=== PATIENT | female | born 1930 | race African-American/Black ===

== ENCOUNTER 2018-01-29 13:56 | Outpatient (CLI) ==
[2013-01-29 07:37] VITALS: TEMP 96.7
--- NOTE | 2018-01-29 16:07 | DEXA ---
EXAM: Bone densitometry. History: Screening for osteoporosis. Findings: Evaluation of the lumbar spine reveals a total bone mineral density of 1.157 grams per centimeter squ ared with T-score of negative 0.2. Evaluation of the right hip reveals a total bone mineral density of 0.909 grams per centimeter square d with T-score of negative 0.8. Evaluation of the left hip reveals a total bone mineral density of 0.879 grams per centimeter squared with T-score of negative 1.0. Impression: Normal bone mineral density of the lumbar spine and bilateral hips
--- NOTE | 2018-01-31 09:19 | MAMMO ---
EXAM: Bilateral digital screening mammogram (2-D and 3-D) History: Screening Comparison: Bilateral mammogram 02/05/2013 Findings: MLO and CC views of bilateral breasts demonstrate scattered fibroglandular breast parenchy ma. CAD was reviewed by the radiologist. Tomosynthesis was performed. Stable benign bilateral luciana st calcifications. Stable benign nodules within the right breast. There are no developing masses an d no suspicious microcalcifications. No architectural distortions Impression: Benign stable mammogram. Recommend followup routine screening mammography in 1 year. BIRADS 2
== END 2018-01-29 13:57 | disposition home or self-care (01) ==
LOC: RAD 13:56
PROVIDERS: ATTEND Internal Medicine
DX: Z12.31 Encounter for screening mammogram for malignant neoplasm of breast (principal); M81.0 Age-related osteoporosis without current pathological fracture
CPT/HCPCS: 77067

== ENCOUNTER 2018-03-21 08:59 | Outpatient (POV) ==
[2013-01-29 07:37] VITALS: TEMP 96.7
== END 2018-03-21 17:00 ==
LOC: OUTPT 08:59
PROVIDERS: ATTEND Otolaryngology
DX: H91.90 Unspecified hearing loss, unspecified ear (principal)

== ENCOUNTER 2018-03-31 18:56 | Inpatient (IN) | payer OTHER ==
[2018-03-31] MEDS ORDERED: ZOFRAN 4 MG/2 ML IVP STA (20:08)
[2018-03-31] MEDS ORDERED: SODIUM CHLORIDE 1,000 ML IV STA (20:08)
--- NOTE | 2018-03-31 20:15 | ED.PDOC ---
General ED Provider: Dr. JOSE SAHU Chief Complaint: Abdominal Pain Stated Complaint: Patient is an 87 year old female who come to the ER with complains of lower abominal pain that started yesterday after she at a [employer] that her got sick after eating. Pain is better today rates it at 2/10 denies any nausea or vomiting. Time Seen by Physician: 19:50 Mode of Arrival: Walk-In Information Source: Patient Exam Limitations: No limitations Primary Care Provider: JEN ROLLE Nursing and Triage Documentation Reviewed and Agree: Yes Does patient meet sepsis criteria?: No If yes, has appropriate treatment been initiated?: No System Inflammatory Response Syndrome: Not Applicable Sepsis Protocol: For patient's 13 years and over: Temp is 96.8 and below OR 101 and greater Pulse >90 BPM Resp >20/minute Acutely Altered Mental Status Are patient's symptoms suggestive of a new infection, such as: -Pneumonia -Skin, Soft Tissue -Endocarditis -UTI -Bone, Joint Infection -Implantable Device -Acute Abdominal Infection -Wound Infection -Meningitis -Blood Stream Catheter Infection -Unknown Review of Systems - Review Of Systems Constitutional: Reports: Loss of appetite Eyes: Reports: No symptoms Ears, Nose, Mouth, Throat: Reports: No symptoms Respiratory: Reports: No symptoms Cardiac: Reports: No symptoms GI: Reports: Abdominal pain, Poor appetite : Reports: No symptoms Musculoskeletal: Reports: No symptoms Skin: Reports: No symptoms Neurological: Reports: Anxiety Endocrine: Reports: No symptoms Hematologic/Lymphatic: Reports: No symptoms All Other Systems: Reviewed and Negative Past Medical History - Past Medical History Endocrine: Reports: Dyslipidemia Cardiovascular: Reports: Hypertension Respiratory: Reports: Unknown Hematological: Reports: Anemia Gastrointestinal: Reports: Unknown Genitourinary: Reports: Unknown Neuro/Psych: Reports: Dementia Musculoskeletal: Reports: Arthritis Cancer: Reports: Colon Last Menstrual Period: hysterectomy - Surgical History General Surgical History: Reports: Hysterectomy, Orthopedic (right ryan, left wrist) - Family History Family History: Reports: None - Social History Smoking Status: Former smoker Hx Substance Use: No Alcohol Screening: None - Immunizations Tetanus Shot up to Date: Yes Physical Exam - Physical Exam Appearance: Well-nourished Pain Distress: Mild Eyes: VICENTE, EOMI, Conjunctiva clear ENT: Nose normal, Oropharynx normal Neck: Supple Respiratory: Airway patent, Breath sounds clear, Breath sounds equal, Respirations nonlabored Cardiovascular: RRR, Pulses normal, No rub, No murmur GI/: Soft, No masses, Bowel sounds normal, No Organomegaly, Tender (mild ) Musculoskeletal: Normal strength, ROM intact, No edema, No calf tenderness Skin: Warm, Dry, Normal color Neurological: Sensation intact, Motor intact, Reflexes intact, Cranial nerves intact, Alert, Oriented Psychiatric: Affect appropriate, Mood appropriate Interpretation - Radiology Interpretation Radiology Interpretation By: Radiologist Radiology Results: Positive (Diverticulitis) Exam Interpreted: CT Scan Critical Care Note - Critical Care Note Total Time (mins): 0 Course - Course Hematology/Chemistry: 03/31/18 20:20 03/31/18 20:20 Orders, Labs, Meds: Lab Review 03/31/18 03/31/18 03/31/18 20:15 20:20 20:20 WBC 15.24 H RBC 3.64 L Hgb 11.0 L Hct 34.0 L MCV 93.4 MCH 30.2 MCHC 32.4 RDW Coeff of Alex 13.2 Plt Count 285 Immature Gran % (Auto) 0.3 Neut % (Auto) 71.4 Lymph % (Auto) 16.5 [place] % (Auto) 10.8 H Eos % (Auto) 0.7 Baso % (Auto) 0.3 Immature Gran # (Auto) 0.0 Neut # (Auto) 10.9 H Lymph # (Auto) 2.5 [place] # (Auto) 1.7 Eos # (Auto) 0.1 Baso # (Auto) 0.1 Sodium 141 Potassium 3.3 L Chloride 104 Carbon Dioxide 26 Anion Gap 14.3 BUN 19 H Creatinine 1.17 Estimated GFR (MDRD) 53.00 BUN/Creatinine Ratio 16.23 Glucose 96 Calcium 9.9 Total Bilirubin 0.9 AST 13 L ALT 14 Alkaline Phosphatase 73 Total Protein 7.8 Albumin 3.8 Globulin 4.0 Albumin/Globulin Ratio 0.95 Amylase 53 Lipase 7 L Urine Color Dark Urine Clarity Slightly Urine pH 7.0 Ur Specific [place] 1.020 Urine Protein 1+ Urine Glucose (UA) Negative Urine Ketones Negative Urine Blood 2+ Urine Nitrite Negative Urine Bilirubin Negative Urine Urobilinogen 0.2 Ur Leukocyte Esterase 1+ Urine Microscopic RBC 10-20 Urine Microscopic WBC 10-20 Ur Squamous Epith Cells 2-5 Urine Bacteria Trace Urine Mucus 1+ Orders Category Date Time Status EKG-(ED ONLY) Stat CARDIO 03/31/18 21:35 Completed 2 GRAM SODIUM DIET DIETARY 03/31/18 Breakfast Ordered ED IV/MEDIPORT/POWERPORT .ONCE EMERGENCY 03/31/18 20:08 Active AMYLASE Stat LAB 03/31/18 20:20 Completed CBC W/ AUTO DIFF DAILY@0600 LAB 04/01/18 06:00 Ordered CBC W/ AUTO DIFF DAILY@0600 LAB 04/02/18 06:00 Ordered CBC W/ AUTO DIFF Stat LAB 03/31/18 20:20 Completed COMPREHENSIVE METABOLIC PANEL DAILY@0600 LAB 04/01/18 06:00 Ordered COMPREHENSIVE METABOLIC PANEL DAILY@0600 LAB 04/02/18 06:00 Ordered COMPREHENSIVE METABOLIC PANEL Stat LAB 03/31/18 20:20 Completed LIPASE Stat LAB 03/31/18 20:20 Completed URINALYSIS C & S IF INDICATED Stat LAB 03/31/18 20:15 Completed URINE CULTURE Stat LAB 03/31/18 20:15 Received 0.9 % Sodium Chloride [Saline Flush] MEDS 03/31/18 20:08 Active 1 syr IVF PRN PRN Allopurinol [Zyloprim] MEDS 04/01/18 09:00 Ordered 100 mg PO BID Atenolol [Atenolol] MEDS 04/01/18 09:00 Ordered 100 mg PO DAILY Atorvastatin Calcium [Lipitor] MEDS 04/01/18 09:00 Ordered 10 mg PO DAILY Enoxaparin Sodium [Lovenox] MEDS 04/01/18 09:00 Ordered 40 mg SUBCUT DAILY Ferrous Sulfate Solution [Ferrous Sulfate] MEDS 04/01/18 09:00 Ordered 7.3635 ml PO TID Levofloxacin/D5w [Levaquin] 500 mg MEDS 04/01/18 09:00 Ordered Premix 100 ml D5w 1 bag IV DAILY Levofloxacin/D5w [Levaquin] 500 mg MEDS 03/31/18 21:27 Discontinued Premix 100 ml D5w 1 bag IV ONCE Lisinopril [Zestril] MEDS 04/01/18 09:00 Ordered 5 mg PO DAILY Metformin HCl [Glucophage] MEDS 04/01/18 09:00 Ordered 500 mg PO BID Metronidazole/Sodium Chloride [Flagyl 500 mg/100 ml] MEDS 03/31/18 22:00 Ordered 500 mg Premix 100 ml Ns 1 bag IV Q8H Morphine Sulfate [Morphine 2 mg/ml Syringe] MEDS 03/31/18 21:38 Ordered 2 mg IVP Q4H PRN Clarence-3 Fatty Acids [Fish Oil] MEDS 04/01/18 09:00 Ordered 300 mg PO DAILY Omeprazole [Prilosec] MEDS 04/01/18 06:30 Ordered 20 mg PO QDAC Ondansetron HCl/Pf [Zofran 4 mg/2 ml] MEDS 03/31/18 20:08 Discontinued 4 mg IVP ONCE STA Ondansetron HCl/Pf [Zofran 4 mg/2 ml] MEDS 03/31/18 21:38 Ordered 4 mg IVP Q6H PRN Potassium Chloride [Klor-Con 10] MEDS 04/01/18 09:00 Ordered 10 meq PO DAILY Sodium Chloride 0.9% [Sodium Chloride] 1,000 ml MEDS 03/31/18 22:00 Ordered IV 100 mls/hr Sodium Chloride 0.9% [Sodium Chloride] 1,000 ml MEDS 03/31/18 20:08 Discontinued IV BOLUS RESUSCITATION STATUS Routine OTHERS 03/31/18 21:38 Ordered CHEST, 1V AP ONLY Stat RADS 03/31/18 21:[address] ABD/PEL WO RENAL STONE PROT Stat RADS 03/31/18 20:08 Completed PT CONSULT Routine THERAPIES 03/31/18 Ordered Medications Generic Name Dose Route Start Last Admin Trade Name Freq PRN Reason Stop Dose Admin Allopurinol 100 mg 04/01/18 09:00 Zyloprim PO BID [facility] Atorvastatin Calcium 10 mg 04/01/18 09:00 Lipitor PO DAILY [facility] Enoxaparin Sodium 40 mg 04/01/18 09:00 Lovenox SUBCUT DAILY PILAR Ferrous Sulfate 7.3635 ml 04/01/18 09:00 Ferrous Sulfate PO TID PILAR Levofloxacin/Dextrose 500 mg/ 100 mls @ 100 mls/hr 04/01/18 09:00 Dextrose IV DAILY PILAR Metronidazole 500 mg/ Sodium 100 mls @ 100 mls/hr 03/31/18 22:00 03/31/18 23: 13 Chloride IV 100 mls/hr Q8H PILAR Administration Sodium Chloride 1,000 mls @ 100 mls/hr 03/31/18 22:00 03/31/18 23:13 Sodium Chloride IV 100 mls/hr .Q10H PILAR Administration Lisinopril 5 mg 04/01/18 09:00 Zestril PO DAILY [facility] Metformin HCl 500 mg 04/01/18 09:00 Glucophage PO BID [facility] Morphine Sulfate 2 mg 03/31/18 21:38 Morphine 2 Mg/Ml Syringe IVP Q4H PRN Severe Pain Non-Formulary Medication 100 mg 04/01/18 09:00 Atenolol [Atenolol] PO DAILY [facility] Non-Formulary Medication 300 mg 04/01/18 09:00 Clarence-3 Fatty Acids [Fish Oil] PO DAILY [facility] Non-Formulary Medication 10 meq 04/01/18 09:00 Potassium Chloride [Klor-Con 10] PO DAILY [facility] Omeprazole 20 mg 04/01/18 06:30 Prilosec PO QDAC [facility] Ondansetron HCl 4 mg 03/31/18 21:38 Zofran 4 Mg/2 Ml IVP Q6H PRN Nausea / Vomiting Sodium Chloride 1 syr 03/31/18 20:08 Saline Flush IVF PRN PRN To flush IV Discontinued Medications Generic Name Dose Route Start Last Admin Trade Name Freq PRN Reason Stop Dose Admin Sodium Chloride 1,000 mls @ 1,000 mls/hr 03/31/18 20:08 03/31/18 21:03 Sodium Chloride IV 03/31/18 21:07 1,000 mls/hr BOLUS STA Administration Levofloxacin/Dextrose 500 mg/ 100 mls @ 100 mls/hr 03/31/18 21:27 03/31/18 21 :44 Dextrose IV 03/31/18 22:26 100 mls/hr ONCE STA Administration Ondansetron HCl 4 mg 03/31/18 20:08 03/31/18 21:03 Zofran 4 Mg/2 Ml IVP 03/31/18 20:09 4 mg ONCE STA Administration Vital Signs: Temp Pulse Resp BP Pulse Ox 03/31/18 18:56 99.9 F H 82 20 171/82 H 97 Departure - Departure Time of Disposition: 21:28 Disposition: HOME SELF-CARE Discharge Problem: Abdominal pain, Diverticulitis of sigmoid colon Condition: Fair Pt referred to PMD for follow-up: No IPMP verified?: No Allergies/Adverse Reactions: Allergies No Known Allergies Allergy (Verified 03/31/18 19:11) Home Medications: Ambulatory Orders Allopurinol [Zyloprim] 100 mg PO BID 01/29/13 Atenolol 100 mg PO DAILY 01/29/13 Atorvastatin Calcium [Lipitor] 10 mg PO DAILY 01/29/13 Ferrous Sulfate Solution [Ferrous Sulfate] 324 mg PO TID 01/29/13 Lisinopril [Zestril] 5 mg PO DAILY 01/29/13 Clarence-3 Fatty Acids [Fish Oil] 300 mg PO DAILY 01/29/13 Omeprazole [Prilosec] 20 mg PO QDAC 01/29/13 Potassium Chloride [Klor-Con 10] 10 meq PO DAILY 01/29/13 Disposition Discussed With: Patient, Family
--- NOTE | 2018-03-31 21:14 | CT ---
EXAM: CT abdomen pelvis without contrast TECHNIQUE: Helical axial CT of the abdomen and pelvis was performed without contrast with coronal an d sagittal reconstructions. COMPARISON: MRI of the pelvis from 09/01/2009 HISTORY: Abdominal pain FINDINGS: There is some edema in the mesenteric fat surrounding a short segment of sigmoid colon in t he left pelvis with some bowel wall thickening. There are multiple colonic diverticuli in the area. There is no free air or abscess identified. There is no obstruction or ileus or pathologic lymph no ray. There is a 1 cm nonobstructive stone seen in the calyceal system of the lower pole on the left. Ther e is no hydronephrosis seen bilaterally. No other renal or ureteral stones are present. There is so me renal atrophy seen bilaterally. There are no filling defects in the urinary bladder. The bladder is decompressed. There has been prior hysterectomy. There are multiple phleboliths in the pelvis. There are no large renal cysts or suspicious renal masses. There is a large mass containing calcifications seen associated with the right psoas muscle extending into the neural foramen of L4-5 on the right measuring about 6.5 x 3.5 cm which is stable compared t o earlier. 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 The liver, spleen, pancreas,and adrenal glands show no acute abnormality. There is old granulomatous disease. Lung bases are well-aerated. There is a small hiatal hernia. The gallbladder is normal with no stones or inflammation. There is no biliary or pancreatic ductal dilatation. The appendix is unremarkable. There are no abdominal wall hernias. There is advanced calcific athero sclerosis of the aorta. There are no acute osseous abnormalities. There is advanced degenerative perdomo ge of the lumbar spine. IMPRESSION: 1. Sigmoid diverticulitis as described. 2. Nonobstructive left-sided nephrolithiasis. 3. 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 4. Other miscellaneous findings as described.
[2018-03-31] MEDS ORDERED: LEVAQUIN 500 MG in PREMIX 100 ML D5W 1 BAG IV STA (21:27)
[2018-03-31] MEDS ORDERED: MORPHINE 2 MG/ML SYRINGE IVP PRN (21:38)
[2018-03-31] MEDS ORDERED: ZOFRAN 4 MG/2 ML IVP PRN (21:38)
[2018-03-31] MEDS ORDERED: LEVAQUIN 100 ML IV ONE (21:40)
[2018-03-31] MEDS ORDERED: FLAGYL 500 MG/100 ML 100 ML IV ONE (22:54)
[2018-03-31] MEDS: FLAGYL 500 MG/100 ML 500 MG in PREMIX 100 ML NS 1 BAG IV SCH (23:13)
[2018-03-31] MEDS: SODIUM CHLORIDE 1,000 ML IV SCH (23:13)
[2018-04-01 00:14] VITALS: BMI 26.4
[2018-04-01] MEDS ORDERED: FLAGYL 500 MG/100 ML 100 ML IV ONE (06:08)
[2018-04-01] MEDS: FLAGYL 500 MG/100 ML 500 MG in PREMIX 100 ML NS 1 BAG IV SCH ×3 (06:12→23:21)
[2018-04-01] MEDS: PRILOSEC PO SCH (06:12)
[2018-04-01] MEDS ORDERED: MICRO-K CAP PO SCH (08:00)
--- NOTE | 2018-04-01 08:25 | DI ---
EXAM: Chest one view HISTORY: Abdominal pain COMPARISON: 10/31/2011 TECHNIQUE: Single view of the chest was performed FINDINGS: The lungs are clear. There is no pleural effusion or pneumothorax. The heart is normal i n size. The mediastinal contour is normal. There are no acute abnormalities of the bones. IMPRESSION: No acute cardiopulmonary process.
[2018-04-01] MEDS ORDERED: ZAROXOLYN PO PRN (08:52)
[2018-04-01] MEDS ORDERED: NON-FORMULARY MEDICATION (Atenolol [Atenolol] 100 MG) PO SCH (09:00)
[2018-04-01] MEDS ORDERED: FERROUS SULFATE PO SCH (09:00)
[2018-04-01] MEDS ORDERED: NON-FORMULARY MEDICATION (Potassium Chloride [Klor-Con 10] 10 MEQ) PO SCH (09:00)
[2018-04-01] MEDS ORDERED: FATTY ACIDS PO SCH (09:00)
[2018-04-01] MEDS ORDERED: OMEGA PO SCH (09:00)
[2018-04-01] MEDS: GLUCOPHAGE PO SCH ×2 (09:30→17:45)
[2018-04-01] MEDS: LIPITOR PO SCH (09:30)
[2018-04-01] MEDS: TENORMIN PO SCH (09:30)
[2018-04-01] MEDS: OMEGA-3 FISH OIL PO SCH (09:30)
[2018-04-01] MEDS: ZESTRIL PO SCH (09:30)
[2018-04-01] MEDS: FERROUS SULFATE PO SCH ×3 (09:30→20:27)
[2018-04-01] MEDS: ZYLOPRIM PO SCH ×2 (09:31→20:27)
[2018-04-01] MEDS: LOVENOX SUBCUT SCH (09:31)
[2018-04-01] MEDS: ZAROXOLYN PO SCH (10:40)
[2018-04-01] MEDS: SODIUM CHLORIDE 1,000 ML IV SCH ×2 (12:28→23:21)
[2018-04-01] MEDS: K-DUR PO SCH (17:45)
[2018-04-01] MEDS: LEVAQUIN 500 MG in PREMIX 100 ML D5W 1 BAG IV SCH (20:27)
[2018-04-01] MEDS: NAMENDA PO SCH (20:30)
[2018-04-01] MEDS: TRAVATAN Z OP SCH (20:30)
[2018-04-02] MEDS: FLAGYL 500 MG/100 ML 500 MG in PREMIX 100 ML NS 1 BAG IV SCH ×3 (05:21→20:17)
[2018-04-02] MEDS: PRILOSEC PO SCH (06:20)
[2018-04-02] MEDS: ZESTRIL PO SCH (09:00)
[2018-04-02] MEDS: ZYLOPRIM PO SCH ×2 (09:00→20:17)
[2018-04-02] MEDS: TENORMIN PO SCH (09:00)
[2018-04-02] MEDS: FERROUS SULFATE PO SCH ×3 (09:01→20:17)
[2018-04-02] MEDS: GLUCOPHAGE PO SCH (09:01)
[2018-04-02] MEDS: OMEGA-3 FISH OIL PO SCH (09:01)
[2018-04-02] MEDS: LIPITOR PO SCH (09:01)
[2018-04-02] MEDS: LOVENOX SUBCUT SCH (09:02)
[2018-04-02] MEDS: K-DUR PO SCH ×2 (09:05→18:09)
[2018-04-02] MEDS: SODIUM CHLORIDE 1,000 ML IV SCH ×3 (09:09→21:34)
--- NOTE | 2018-04-02 10:04 | PCM.PROG ---
Attending Provider: ATTENDING PROVIDER: Dr. JEN ROLLE This patient is seen with Parris Uriarte, Nurse Practitioner. DATE OF SERVICE: 04/02/18 SUBJECTIVE: This 87 year old BLACK/ F was hospitalized 03/31/18. The patient is lying in bed, alert. The patient is resting comfortably. Pain has improved. No fever. She is eating 50 to 75% of meals. Urine culture pending. REVIEW OF SYSTEMS: CONSTITUTIONAL: Weakness. No night sweats. No malaise, lethargy. No fever or chills. HEENT: Eyes: No visual changes. No eye pain. No eye discharge. ENT: No runny nose. No epistaxis. No sinus pain. No odynophagia. No congestion. RESPIRATORY: No cough, no congestion. No hemoptysis. No shortness of breath. CARDIOVASCULAR: No angina symptoms. No CHF symptoms. No atypical chest pain for CAD. No palpitations. No orthopnea.. GASTROINTESTINAL: Decreased appetite. Abdominal pain. No nausea or vomiting. No diarrhea or constipation. No hematemesis. No hematochezia. GENITOURINARY: No urgency. No frequency. No dysuria. No hematuria. No obstructive symptoms. No discharge. No pain. No significant abnormal bleeding. MUSCULOSKELETAL: No musculoskeletal pain; no joint swelling. NEUROLOGICAL: Awake, alert, oriented to time, place and person. No headache. No neck pain. No syncope. No seizures. No dizziness. PSYCHIATRIC: Not anxious. No depression. No suicidal thoughts. No homicidal thoughts. SKIN: No rash. No lesions. No wounds. ENDOCRINE: No unexplained weight loss. No weight gain. HEMATOLOGIC/LYMPHATIC: No anemia. No purpura. No petechiae. No prolonged or excessive bleeding. No palpable lymph nodes. PHYSICAL EXAMINATION: GENERAL: The patient is awake, alert and oriented, lying/sitting in bed in no distress. VITAL SIGNS: Temperature 98.8 F, Pulse 68, Respiratory Rate 16, BP 127/71, Pulse Ox 97% HEENT: Head normocephalic, atraumatic. Eyes: Extraocular muscles are intact. Pupils are equal, round and reactive to light and accommodation. Ears: No lesions. Nose appeared normal. Throat: No exudate or erythema. NECK: Supple. No JVD, no carotid bruit. No lymphadenopathy or thyromegaly. LUNGS: Diminished breath sounds. Clear to auscultation. Percussion note normal. Chest symmetrical. HEART: Grade II/ systolic murmur. S1, S2, no S3. No cyanosis or clubbing. No ascites. Pulses: Dorsalis pedis and posterior tibial pulses +1 to +2 both sides. ABDOMEN: Soft. Non-tender. Bowel sounds active. No CVA tenderness. No mass felt. EXTREMITIES: No leg edema. Full range of motion of all extremities, equal. NEUROLOGIC: No focal deficit. Cranial nerves II through XII are grossly intact. No headache, no double vision or headache. SKIN: Not dry. Intact. Turgor-normal. LYMPHATIC: No palpable lymph nodes/no lymphedema. MUSCULOSKELETAL: Normal joints with no swelling. Muscle tone is normal. LAB REVIEW: 04/02/18 04:15 04/02/18 04:15 04/02/18 04:15: Sodium 140, Potassium 4.1, Chloride 111 H, Carbon Dioxide 21 L, Anion Gap 12.1, BUN 20 H, Creatinine 1.08, Estimated GFR (MDRD) 58.00, BUN/ Creatinine Ratio 18.51, Glucose 111, Calcium 8.8, Total Bilirubin 0.5, AST 14 L , ALT 13, Alkaline Phosphatase 52 L, Total Protein 6.4, Albumin 2.9 L, Globulin 3.5, Albumin/Globulin Ratio 0.83 04/02/18 04:15: WBC 8.22, RBC 3.03 L, Hgb 9.2 L, Hct 28.0 L, MCV 92.4, MCH 30.4 , MCHC 32.9, RDW Coeff of Alex 13.1, Plt Count 233, Immature Gran % (Auto) 0.2, Neut % (Auto) 58.0, Lymph % (Auto) 25.5, [place] % (Auto) 13.1 H, Eos % (Auto) 2.7 , Baso % (Auto) 0.5, Immature Gran # (Auto) 0.0, Neut # (Auto) 4.8, Lymph # ( Auto) 2.1, [place] # (Auto) 1.1, Eos # (Auto) 0.2, Baso # (Auto) 0.0 ASSESSMENT: 1. Acute sigmoid diverticulitis 2. Acute UTI, culture pending 3. Hypertension 4. Dyslipidemia 5. Anemia 6. Dementia 7. Arthritis 8. Colon cancer 9. Hysterectomy PLAN: 1. Echo 2. Decrease IV fluids to 50 mL/hr Plan and coordination of the patient's care discussed in the presence of It Help Desk Technician and nurse. CONDITION: Stable SCRIBED BY: TANESHA PACKER General Manager scribed while in presence of service performed by Dr. Rolle/Parris Uriarte APRN on 04/02/18 ([id number])
--- NOTE | 2018-04-02 16:07 | RS.PTINEVL ---
Subjective - Patient information Date of Evaluation: 04/02/18 Date of Arrival on Unit: 03/31/18 Diagnosis: Diverticulitis, UTI, HTN Usual Living Arrangement: Alone Home Environment: Apartment ([facility] Apartments) Medical History: Hypertension, Dementia, Arthritis Medical History Comments:: Anemia, Hiatal hernia, Colon Cancer, Hysterectomy, Left wrist sx, Right ankle sx Subjective Information/ Patient Comments:: Patient states she uses a cane in her home. States she just got a rollator last week. States she has gotten weak since being sick. States her daughters tell her that she needs to walk, but she does not feel like it. - Level of function Prior to this admission, the patient could do the following:: Independent Selfcare, Independent ADL's, Independent Ambulation Current Level of Function: Independent Current Equipment Used at Home: cane, shower chair and walker. Interventions - Objective Patient Orientation: Person, Place, Time, Situation Current Interventions: IV's, Telemetry Range of Motion - ROM Right Upper Extremity AROM: WFL's Left Upper Extremity AROM: WFL's Right Lower Extremity AROM: WFL's Left Lower Extremity AROM: WFL's Muscle Strength - Muscle Strength Comments:: Bilateral hip strength 4/5, knees 4/5, ankles 4/5. Sensation - Sensation Right Lower Extremity Sensation: Intact/Normal Left Lower Extremity Sensation: Intact/Normal Balance - Sitting Balance and Reactions Static Sitting Balance: Good Dynamic Sitting Balance: Good - Standing Balance and Reactions Static Standing Balance: Good (-) Dynamic Standing Balance: Good (-) Functional Mobility - Bed Mobility Comments:: Patient presents in chair at bedside. - Transfers Sit to Stand: CGA, 1 person assist, Verbal Cues Stand to Sit: CGA, 1 person assist, Verbal Cues, Tactile Cues Stand Pivot Transfers: CGA, 1 person assist, Verbal Cues, Tactile Cues Comments:: Patient requires cues to push from chair prior to reaching for walking with sit to stand transfer. Also given cues to reach back for chair prior to sitting. - Safety Awareness Safety Awareness: Fair BRENDON INDEX SCORE: not a Swing Bed patient Ambulation - Ambulation Weight Bearing Status: FWB Assistive Device Used: Rolling Walker Orthotic/Prosthetic Device: No Distance: 45 feet Assistance needed with Ambulation: CGA, Min Assist, 1 person assist, Verbal Cues Gait Deviations: Wide Based gait, Forward posture Factors Affecting Ambulation: Weakness, Decreased Safety, Limited Endurance Treatment time - Time with patient Length of Evaluation: 19 mins Total treatment time: 19 (mins) Patient Education - Education Patient Education: Home Safety, Activity Modification Teaching Recipient: Patient Teaching Methods: Discussion, Demonstration Assessment - Assessment Problem List:: Decreased level of function, Requires training/education, Decreased safety/Risk of falls, Weakness Rehab Potential: Good Further Therapy Indicated?: Yes Candidate for Swing Bed for Therapy Services?: Anticipate seeing Ms. Coates for just a few days to improve her safety with ambulation and transfers. She does not appear to be a candidate for swing bed due to her level of function. Evaluation Complexity: HISTORY: Medium (Anemia, HTN, Hx Colon Ca), EXAM OF BODY SYSTEMS: Medium, CLINICAL PRESENTATION: Medium, CLINICAL DECISION MAKING: Medium Short Term Goals GOAL #1: Pt to consistently push from chair/bed for sit to stand transfers. Goal to be met by: 04/04/18 GOAL #2: Bed mobility with SBA and verbal cues. Goal to be met by: 04/04/18 GOAL #3: Pt to amb. with RW 100 feet with good base of support, CGA of one. Goal to be met by: 04/04/18 Field Education Director Goals GOAL #1: All bed mobility independent. Goal to be met by: 04/06/18 GOAL #2: Pt to perform transfers with SBA and good safety. Goal to be met by: 04/06/18 GOAL #3: Pt to amb. with approp. assist device household distances and good safety. Goal to be met by: 04/06/18 Plan Plan of Care: Therapeutic EX, Neuromuscular Re-Educ, Therapeutic Activity, Self- Care/Home Management Frequency of Treatment: 1-2 X day, as tolerated Duration of Treatment: 4 days Anticipated Discharge Destination: Home Treatment Diagnosis (ICD 10 Codes): Difficulty walking R26.2, At risk for falls Z91.81 Has the Physician been added for Co-signature?: Yes
--- NOTE | 2018-04-02 16:22 | RS.OTINEVL ---
Subjective - Patient information Date of Evaluation: 04/02/18 Date of Arrival on Unit: 03/31/18 Usual Living Arrangement: Alone Living Arrangement Comments: Lives at home alone. Pt uses a cane at home and a rollator out in the community. Daughter helps her. Home Environment: Apartment ([facility]) Medical History: Hypertension, Dementia, Arthritis Medical History Comments:: Anemia, Hiatal hernia, Colon Cancer, Hysterectomy, Left wrist sx, Right ankle sx Surgical History Comments:: Left wrist fracture with plate and pins, Right ankle fracture with plate and pins. Subjective Information/ Patient Comments:: "I am having help to get to the bathroom." "I live alone." - Level of function Prior to this admission, the patient could do the following:: Independent Selfcare, Independent ADL's, Independent Ambulation Abilities prior to this admission: Pt was is not driving anymore. Her daughter takes her where she needs to go. Pt is able to get dressed herself, make something to eat. Pt lives in a small apartment. Current Level of Function: Partially Dependent Current Equipment Used at Home: cane, shower chair and walker. 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 Pt reports she has a difficult time using her RUE. Pt has difficulty with RUE fine motor coordination , handwriting and functional mobility. Interventions - ROM Right Upper Extremity AROM: Slight limitation Left Upper Extremity AROM: WFL's - Strength Right Upper Extremity Strength: Mild Weakness Left Upper Extremity Strength: Mild Weakness - Sensation Right Upper Extremity Sensation: Impaired Left Upper Extremity Sensation: Intact/Normal Balance - Sitting Balance Static Sitting Balance: Fair Dynamic Sitting Balance: Fair - Standing Balance Static Standing Balance: Fair Dynamic Standing Balance: Fair ADL Skills - Self Feeding Self Feeding: Independent - Grooming Grooming: Supervision Functional Mobility - Transfers Sit to Stand: CGA, 1 person assist Stand to Sit: CGA, 1 person assist Stand Pivot Transfers: CGA, 1 person assist BRENDON INDEX SCORE: . Additional Treatment Performed - Time with patient Length of Evaluation: 18 Total treatment time: 18 Activities Patient Interests:: Watching Television, Visiting/Socializing Patient Education Patient Education: Education of diagnosis, Home Exercise Program, Home Safety, Education of Plan of Care Teaching Recipient: Patient Teaching Methods: Discussion Assessment Problem List:: Decreased level of function, Requires training/education, Decreased safety/Risk of falls, Weakness, Pain limits previous level of function Rehab Potential: Good Further Therapy Indicated?: Yes Evaluation Complexity: HISTORY: Medium, EXAM OF BODY SYSTEMS: Medium, CLINICAL DECISION MAKING: Medium Short Term Goals - Goals GOAL 1: Pt to increase RUE strength to 4/5. Goal to be met by: 04/06/18 GOAL 2: Pt to increase functional mobility to Mod-I. Goal to be met by: 04/06/18 GOAL 3: Pt to increase dyn. std. Balance to F-/G. Goal to be met by: 04/06/18 Shelter Goals GOAL 1: Pt to increase RUE strength to 4+/5. Goal to be met by: 04/13/18 GOAL 2: Pt to increase self care management to Mod-I. Goal to be met by: 04/13/18 GOAL 3: Pt to increase dyn. std. Balance to Good-. Goal to be met by: 04/13/18 Plan Plan of Care: Therapeutic EX, Neuromuscular Re-Educ, Therapeutic Activity, Self- Care/Home Management Frequency of Treatment: 1-2 X day, as tolerated Duration of Treatment: 2 Weeks Anticipated Discharge Destination: Home Treatment Diagnosis (ICD 10 Codes): M62.81 muscle weakness, R27.8 Lack of coordination of RUE, R26.81 Balance impaired/unsteady Has the Physician been added for Co-signature?: Yes
[2018-04-02] MEDS: NAMENDA PO SCH (20:17)
[2018-04-02] MEDS: TRAVATAN Z OP SCH (20:17)
[2018-04-02] MEDS: LEVAQUIN 500 MG in PREMIX 100 ML D5W 1 BAG IV SCH (21:31)
[2018-04-03] MEDS: PRILOSEC PO SCH (05:57)
[2018-04-03] MEDS: ZAROXOLYN PO SCH (05:57)
[2018-04-03] MEDS: FLAGYL 500 MG/100 ML 500 MG in PREMIX 100 ML NS 1 BAG IV SCH ×3 (05:57→20:00)
--- NOTE | 2018-04-03 08:26 | PCM.PROG ---
Attending Provider: ATTENDING PROVIDER: Dr. JEN ROLLE DATE OF SERVICE: 04/03/18 SUBJECTIVE: This 87 year old BLACK/ F was hospitalized 03/31/18 with acute diverticulitis and UTI. The patient's condition has improved. She is eating better. REVIEW OF SYSTEMS: CONSTITUTIONAL: No night sweats. No fatigue, malaise, lethargy. No fever or chills. HEENT: Eyes: No visual changes. No eye pain. No eye discharge. ENT: No runny nose. No epistaxis. No sinus pain. No odynophagia. No congestion. RESPIRATORY: No cough, no congestion. No hemoptysis. No shortness of breath. CARDIOVASCULAR: No angina symptoms. No CHF symptoms. No atypical chest pain for CAD. No palpitations. No orthopnea.. GASTROINTESTINAL: No abdominal pain. No nausea or vomiting. No diarrhea or constipation. No hematemesis. No hematochezia. GENITOURINARY: No urgency. No frequency. No dysuria. No hematuria. No obstructive symptoms. No discharge. No pain. No significant abnormal bleeding. MUSCULOSKELETAL: No musculoskeletal pain; no joint swelling. NEUROLOGICAL: Awake, alert, oriented to time, place and person. No headache. No neck pain. No syncope. No seizures. No dizziness. PSYCHIATRIC: Not anxious. No depression. No suicidal thoughts. No homicidal thoughts. SKIN: No rash. No lesions. No wounds. ENDOCRINE: No unexplained weight loss. No weight gain. HEMATOLOGIC/LYMPHATIC: No anemia. No purpura. No petechiae. No prolonged or excessive bleeding. No palpable lymph nodes. PHYSICAL EXAMINATION: GENERAL: The patient is awake, alert and oriented, sitting in chair in no distress. VITAL SIGNS: Temperature 98.1 F, Pulse 71, Respiratory Rate 18, BP 121/72, Pulse Ox 98% HEENT: Head normocephalic, atraumatic. Eyes: Extraocular muscles are intact. Pupils are equal, round and reactive to light and accommodation. Ears: No lesions. Nose appeared normal. Throat: No exudate or erythema. NECK: Supple. No JVD, no carotid bruit. No lymphadenopathy or thyromegaly. LUNGS: Clear to auscultation. Percussion note normal. Chest symmetrical. HEART: S1, S2, no S3. No murmurs. No cyanosis or clubbing. No ascites. Pulses: Dorsalis pedis and posterior tibial pulses +1 to +2 both sides. ABDOMEN: Soft. Non-tender. Bowel sounds active. No CVA tenderness. No mass felt. EXTREMITIES: No edema. Full range of motion of all extremities, equal. NEUROLOGIC: No focal deficit. Cranial nerves II through XII are grossly intact. No headache, no double vision or headache. SKIN: Warm and dry. Intact. Turgor-normal. LYMPHATIC: No palpable lymph nodes/no lymphedema. MUSCULOSKELETAL: Normal joints with no swelling. Muscle tone is normal. LAB REVIEW: 04/03/18 07:20 04/02/18 04:15 04/03/18 07:20: WBC 8.14, RBC 3.17 L, Hgb 9.8 L, Hct 29.6 L, MCV 93.4, MCH 30.9 , MCHC 33.1, RDW Coeff of Alex 13.0, Plt Count 266, Immature Gran % (Auto) 0.4, Neut % (Auto) 58.6, Lymph % (Auto) 27.5, [place] % (Auto) 10.2 H, Eos % (Auto) 2.9 , Baso % (Auto) 0.4, Immature Gran # (Auto) 0.0, Neut # (Auto) 4.8, Lymph # ( Auto) 2.2, [place] # (Auto) 0.8, Eos # (Auto) 0.2, Baso # (Auto) 0.0 ASSESSMENT: 1. ACUTE DIVERTICULITIS UNDER CONTROL 2. UTI UNDER CONTROL PLAN: 1. D/C IV fluids 2. Anemia profile 3. Dietary consult Plan and coordination of the patient's care discussed in the presence of [employer] Director and nurse. EDUCATION: Discussed diverticulosis and diet, i.e. no seeds, nuts, popcorn. CONDITION: Stable SCRIBED BY: TANESHA PACKER Embalmer Assistant scribed while in presence of service performed by Dr. JEN ROLLE on 04/03/18 ([id number])
[2018-04-03] MEDS: K-DUR PO SCH ×2 (08:31→17:38)
[2018-04-03] MEDS: OMEGA-3 FISH OIL PO SCH (08:31)
[2018-04-03] MEDS: ZESTRIL PO SCH (08:31)
[2018-04-03] MEDS: FERROUS SULFATE PO SCH ×3 (08:31→20:00)
[2018-04-03] MEDS: LIPITOR PO SCH (08:31)
[2018-04-03] MEDS: ZYLOPRIM PO SCH ×2 (08:31→20:00)
[2018-04-03] MEDS: TENORMIN PO SCH (08:32)
[2018-04-03] MEDS: LOVENOX SUBCUT SCH (08:33)
[2018-04-03] MEDS: SODIUM CHLORIDE 1,000 ML IV SCH (09:21)
--- NOTE | 2018-04-03 13:52 | PN ---
DATE OF SERVICE: 03/31/18 ADMIT NOTE SUBJECTIVE: 87 year old white female hospitalized through the emergency room with abdominal pain. The patient has acute diverticulitis with leukocytosis. She is going to be treated with IV fluids, clear liquids. IV antibiotics Flagyl and Levaquin. Possibility of urinary tract infection also exists. Otherwise conditions are stable. The patient will have EKG and telemetry. TIME SPENT: More than 30 minutes. Plan and coordination of the patient's care discussed in the presence of nurse. KEENA
--- NOTE | 2018-04-03 14:02 | PN ---
DATE OF SERVICE: 04/02/18 SUBJECTIVE: The patient was hospitalized with acute diverticulitis and UTI. Condition has improved. WBC is normal. She is afebrile and eating well. Normal bowel movement. The patient was seen and examined with Nurse Practitioner. CONDITION: Stable. TIME SPENT: More than 30 minutes. Plan and coordination of the patient's care discussed in the presence of nurse. KEENA
[2018-04-03] MEDS: NAMENDA PO SCH (20:00)
[2018-04-03] MEDS: TRAVATAN Z OP SCH (20:00)
[2018-04-03] MEDS: LEVAQUIN 250 MG in PREMIX 50 ML D5W 1 BAG IV SCH (21:39)
[2018-04-04] MEDS: PRILOSEC PO SCH (05:38)
[2018-04-04] MEDS: FLAGYL 500 MG/100 ML 500 MG in PREMIX 100 ML NS 1 BAG IV SCH ×2 (05:38→15:19)
[2018-04-04] MEDS: ZYLOPRIM PO SCH (08:12)
[2018-04-04] MEDS: LIPITOR PO SCH (08:12)
[2018-04-04] MEDS: OMEGA-3 FISH OIL PO SCH (08:12)
[2018-04-04] MEDS: K-DUR PO SCH ×2 (08:12→16:56)
[2018-04-04] MEDS: ZESTRIL PO SCH (08:12)
[2018-04-04] MEDS: FERROUS SULFATE PO SCH ×2 (08:12→15:19)
[2018-04-04] MEDS: LOVENOX SUBCUT SCH (08:13)
[2018-04-04] MEDS: TENORMIN PO SCH (08:16)
--- NOTE | 2018-04-04 08:46 | PCM.PROG ---
Attending Provider: ATTENDING PROVIDER: Dr. JEN ROLLE This patient is seen with Parris Uriarte, Nurse Practitioner. DATE OF SERVICE: 04/04/18 SUBJECTIVE: This 87 year old BLACK/ F was hospitalized 03/31/18. The patient is lying in bed, alert, resting comfortably still with some abdominal pain. No diarrhea yesterday. Appetite has been good. She is still weak. REVIEW OF SYSTEMS: CONSTITUTIONAL: Weakness. No night sweats. No malaise, lethargy. No fever or chills. HEENT: Eyes: No visual changes. No eye pain. No eye discharge. ENT: No runny nose. No epistaxis. No sinus pain. No odynophagia. No congestion. RESPIRATORY: No cough, no congestion. No hemoptysis. No shortness of breath. CARDIOVASCULAR: No angina symptoms. No CHF symptoms. No atypical chest pain for CAD. No palpitations. No orthopnea.. GASTROINTESTINAL: Abdominal pain. No nausea or vomiting. No diarrhea or constipation. No hematemesis. No hematochezia. GENITOURINARY: No urgency. No frequency. No dysuria. No hematuria. No obstructive symptoms. No discharge. No pain. No significant abnormal bleeding. MUSCULOSKELETAL: No musculoskeletal pain; no joint swelling. NEUROLOGICAL: Awake, alert, oriented to time, place and person. No headache. No neck pain. No syncope. No seizures. No dizziness. PSYCHIATRIC: Not anxious. No depression. No suicidal thoughts. No homicidal thoughts. SKIN: No rash. No lesions. No wounds. ENDOCRINE: No unexplained weight loss. No weight gain. HEMATOLOGIC/LYMPHATIC: No anemia. No purpura. No petechiae. No prolonged or excessive bleeding. No palpable lymph nodes. PHYSICAL EXAMINATION: GENERAL: The patient is awake, alert and oriented, lying in bed in no distress. VITAL SIGNS: Temperature 97.6 F, Pulse 69, Respiratory Rate 18, BP 91/61, Pulse Ox 97% HEENT: Head normocephalic, atraumatic. Eyes: Extraocular muscles are intact. Pupils are equal, round and reactive to light and accommodation. Ears: No lesions. Nose appeared normal. Throat: No exudate or erythema. NECK: Supple. No JVD, no carotid bruit. No lymphadenopathy or thyromegaly. LUNGS: Clear to auscultation. Percussion note normal. Chest symmetrical. HEART: S1, S2, no S3. Grade II/ systolic murmur. No cyanosis or clubbing. No ascites. Pulses: Dorsalis pedis and posterior tibial pulses +1 to +2 both sides. ABDOMEN: Soft. Mild left quadrant tenderness. Bowel sounds active. No CVA tenderness. No mass felt. EXTREMITIES: No edema. Full range of motion of all extremities, equal. NEUROLOGIC: No focal deficit. Cranial nerves II through XII are grossly intact. No headache, no double vision or headache. SKIN: Not dry. Intact. Turgor-normal. LYMPHATIC: No palpable lymph nodes/no lymphedema. MUSCULOSKELETAL: Normal joints with no swelling. Muscle tone is normal. LAB REVIEW: 04/04/18 05:10 04/04/18 05:10 04/04/18 05:10: Sodium 139, Potassium 3.9, Chloride 113 H, Carbon Dioxide 22 L, Anion Gap 7.9, BUN 23 H, Creatinine 1.26, Estimated GFR (MDRD) 49.00, BUN/ Creatinine Ratio 18.25, Glucose 107, Calcium 9.2, Total Bilirubin 0.5, AST 12 L , ALT 11 L, Alkaline Phosphatase 48 L, Total Protein 5.9, Albumin 3.0 L, Globulin 2.9, Albumin/Globulin Ratio 1.03 04/04/18 05:10: WBC 7.01, RBC 3.18 L, Hgb 9.6 L, Hct 29.2 L, MCV 91.8, MCH 30.2 , MCHC 32.9, RDW Coeff of Alex 13.0, Plt Count 286, Immature Gran % (Auto) 0.3, Neut % (Auto) 59.6, Lymph % (Auto) 25.4, [place] % (Auto) 11.0 H, Eos % (Auto) 3.1 , Baso % (Auto) 0.6, Immature Gran # (Auto) 0.0, Neut # (Auto) 4.2, Lymph # ( Auto) 1.8, [place] # (Auto) 0.8, Eos # (Auto) 0.2, Baso # (Auto) 0.0 04/03/18 07:20: Vitamin B12 382 04/03/18 07:20: Iron 149, TIBC 215 L, % Saturation 69, Unsat Iron Binding 66 L, Ferritin 166.43, Folate 14.2 04/03/18 07:20: Reticulocyte % (Auto) 2.03, Absolute Retic 0.0650, Retic Hgb Equivalent 31.6 04/03/18 07:20: Sodium 139, Potassium 4.3, Chloride 110 H, Carbon Dioxide 22 L, Anion Gap 11.3, BUN 18, Creatinine 1.17, Estimated GFR (MDRD) 53.00, BUN/ Creatinine Ratio 15.38, Glucose 108, Calcium 9.5, Total Bilirubin 0.6, AST 15, ALT 13, Alkaline Phosphatase 51 L, Total Protein 6.6, Albumin 3.2 L, Globulin 3.4, Albumin/Globulin Ratio 0.94 04/03/18 07:20: Hemoglobin A1c 5.1 ASSESSMENT: 1. ACUTE DIVERTICULITIS UNDER CONTROL 2. UTI UNDER CONTROL 3. HYPOTENSION PLAN: 1. Anticipate d/c tomorrow 2. Encouraged to be up and about today 3. Monitor blood pressure 4. Hold Tenormin if blood pressure is less than 100/70 this morning Plan and coordination of the patient's care discussed in the presence of Firmware Engineer and nurse. CONDITION: Stable SCRIBED BY: TANESHA PACKER Fly Raiser Lockstitch scribed while in presence of service performed by Dr. Rolle/Parris Uriarte APRN on 04/04/18 ([id number])
--- NOTE | 2018-04-04 09:14 | HP ---
DATE OF SERVICE: 04/01/18 (ADMITTED 03/31/18) HISTORY OF PRESENT ILLNESS: This is an 87-year-old -Spanish female who presented to the emergency room with lower abdominal pain that she stated started after she ate peach cobbler with her friend. 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 No fatigue, malaise, lethargy. No fever or chills. HEENT: Eyes: No visual changes. No eye pain. No eye discharge. ENT: No runny nose. No epistaxis. No sinus pain. No sore throat. No odynophagia. No ear pain. No congestion. RESPIRATORY: No cough, no congestion. No hemoptysis. No shortness of breath. CARDIOVASCULAR: No angina symptoms. No CHF symptoms. No atypical chest pain for CAD. No palpitations. No PND. No orthopnea. GASTROINTESTINAL: Positive for abdominal pain and loss of appetite, nausea. No vomiting. No diarrhea or constipation. No hematemesis. No hematochezia. GENITOURINARY: No urgency. No frequency. No dysuria. No hematuria. No obstructive symptoms. No discharge. No pain. No significant abnormal bleeding. MUSCULOSKELETAL: No musculoskeletal pain. No joint swelling. No arthritis. NEUROLOGICAL: No headache. No neck pain. No syncope. No seizures. No dizziness. PSYCHIATRIC: Not anxious. No depression. No suicidal thoughts. No homicidal thoughts. SKIN: No rash. No lesions. No wounds. ENDOCRINE: No unexplained weight loss. No weight gain. HEMATOLOGIC/LYMPHATIC: No anemia. No purpura. No petechiae. No prolonged or excessive bleeding. No palpable lymph nodes. PERSONAL/FAMILY/SOCIAL HISTORY: She is a former smoker, lives at home with her friend. No alcohol or illicit drug use. MEDICATIONS: (HOME) Lisinopril 5 mg p.o. daily Klor-Con 10 mEq p.o. daily Fish Oil 300 mg p.o. daily Prilosec 20 mg p.o. q.d a.c. Lipitor 10 mg p.o. daily Zyloprim 100 mg p.o. b.i.d. Atenolol 100 mg p.o. daily Metolazone 2.5 mg p.o. every other day Travatan one drop OP bedtime Ferrous Sulfate 324 mg p.o. t.i.d. Namenda 10 mg p.o. bedtime Metolazone 2.5 mg p.o. daily p.r.n. ALLERGIES: NKDA PHYSICAL EXAMINATION: VITAL SIGNS: Temperature 99.9, heart rate 82, respirations 20, BP 170/82, pulse ox 97% on room air. HEENT: Head normocephalic, atraumatic. Eyes: Extraocular muscles are intact. Pupils are equal, round and reactive to light and accommodation. Ears: No lesions. Nose appeared normal. Throat: No exudate or erythema. NECK: Supple. No JVD, no carotid bruit. No lymphadenopathy or thyromegaly. LUNGS: Diminished breath sounds bilaterally. Clear to auscultation. Percussion note normal. Chest symmetrical. HEART: S1, S2, no S3. No murmurs. No cyanosis or clubbing. No ascites. Pulses: Dorsalis pedis and posterior tibial pulses +1 to +2 bilaterally. ABDOMEN: Soft. Generalized abdominal tenderness, which is mild. Nondistended. Bowel sounds active. No CVA tenderness. No mass felt. EXTREMITIES: No leg edema. Full range of motion of all extremities, equal. NEUROLOGIC: No focal deficit. Cranial nerves II through XII are grossly intact. No headache, no double vision or headache. SKIN: Not dry. Intact. Turgor - normal. LYMPHATIC: No palpable lymph nodes/no lymphedema. MUSCULOSKELETAL: Normal joints with no swelling. Muscle tone is normal. CT scan shows positive diverticulitis in sigmoid colon. White count 15.24, hemoglobin 11, hematocrit 34, platelets 285, sodium 141, potassium 3.3, BUN 19, creatinine 1.17, glucose 96. AST 13, ALT 14. Urine shows +1 protein, slightly dark, 2+ blood, 1+ leuks, trace bacteria. ASSESSMENT: 1. ACUTE SIGMOID DIVERTICULITIS 2. URINARY TRACT INFECTION 3. HYPERTENSION 4. DEMENTIA 5. ANEMIA PLAN: 1. Will admit 2. CBC, CMP daily 3. Urine culture 4. Routine telemetry orders 5. Continue all home medications 6. Start Levaquin 500 mg IV daily 7. Start Flagyl 500 mg IV q.8hr 8. [place] diet 9. NS at 100 cc/hr 10. Will follow closely TIME SPENT: More than 70 minutes. MTDD
--- NOTE | 2018-04-04 10:31 | PN ---
DATE OF SERVICE: 04/01/18 SUBJECTIVE: The patient was hospitalized with acute diverticulitis. The patient is sitting up eating, says feeling a lot better. No abdominal pain. REVIEW OF SYSTEMS: CONSTITUTIONAL: No night sweats. No fatigue, malaise, lethargy. No fever or chills. HEENT: Eyes: No visual changes. No eye pain. No eye discharge. ENT: No runny nose. No epistaxis. No sinus pain. No sore throat. No odynophagia. No congestion. RESPIRATORY: No cough, no congestion. No hemoptysis. No shortness of breath. CARDIOVASCULAR: No angina symptoms. No CHF symptoms. No atypical chest pain for CAD. No palpitations. No PND, no orthopnea. GASTROINTESTINAL: No abdominal pain. No nausea or vomiting. No diarrhea or constipation. No hematemesis. No hematochezia. GENITOURINARY: No urgency. No frequency. No dysuria. No hematuria. No obstructive symptoms. No discharge. No pain. No significant abnormal bleeding. MUSCULOSKELETAL: No musculoskeletal pain; no joint swelling. NEUROLOGICAL: No headache. No neck pain. No syncope. No seizures. No dizziness. PSYCHIATRIC: Not anxious. No depression. No suicidal thoughts. No homicidal thoughts. SKIN: No rash. No lesions. No wounds. ENDOCRINE: No unexplained weight loss. No weight gain. HEMATOLOGIC/LYMPHATIC: No anemia. No purpura. No petechiae. No prolonged or excessive bleeding. No palpable lymph nodes. PHYSICAL EXAMINATION: GENERAL: The patient is oriented to time, place and person. VITAL SIGNS: Temperature 98, pulse 71, respiratory rate 18, BP 117/71. Pulse ox 98%. HEENT: Head normocephalic, atraumatic. Eyes: Extraocular muscles are intact. Pupils are equal, round and reactive to light and accommodation. Ears: No lesions. Nose appeared normal. Throat: No exudate or erythema. NECK: Supple. No JVD, no carotid bruit. No lymphadenopathy or thyromegaly. LUNGS: Clear to auscultation. Percussion note normal. Chest symmetrical. HEART: S1, S2, no S3. No murmurs. No cyanosis or clubbing. No ascites. Pulses: Dorsalis pedis and posterior tibial pulses +1 to +2 both sides. ABDOMEN: Soft. Nontender. No tenderness at all on any part of the abdomen. Bowel sounds active. No CVA tenderness. No mass felt. EXTREMITIES: No edema. Full range of motion of all extremities, equal. NEUROLOGIC: No focal deficit. Cranial nerves II through XII are grossly intact. No headache, no double vision or headache. SKIN: Not dry. Intact. Turgor - normal. LYMPHATIC: No palpable lymph nodes/no lymphedema. MUSCULOSKELETAL: Normal joints with no swelling. Muscle tone is normal. LABS: Hemoglobin 9.4, hematocrit 29, WBC 9,000, normal differential. Creatinine 1.3, BUN 22. ASSESSMENT: 1. ACUTE DIVERTICULITIS 2. ACUTE URINARY TRACT INFECTION SEEMS TO BE UNDER CONTROL. PLAN: 1. Diverticulitis discussed. 2. The patient is to be continued on Flagyl and Levofloxacin. CONDITION: Stable TIME SPENT: More than 30 minutes. Plan and coordination of the patient's care discussed in the presence of nurse. KEENA
[2018-04-04] MEDS ORDERED: OXYCODONE PO PRN ×2 (13:15→14:00)
[2018-04-05] MEDS: ZYLOPRIM PO SCH ×2 (00:10→08:52)
[2018-04-05] MEDS: FLAGYL 500 MG/100 ML 500 MG in PREMIX 100 ML NS 1 BAG IV SCH ×3 (00:10→14:03)
[2018-04-05] MEDS: LEVAQUIN 250 MG in PREMIX 50 ML D5W 1 BAG IV SCH (00:10)
[2018-04-05] MEDS: FERROUS SULFATE PO SCH ×2 (00:10→08:51)
[2018-04-05] MEDS: TRAVATAN Z OP SCH (00:10)
[2018-04-05] MEDS: NAMENDA PO SCH (00:10)
[2018-04-05] MEDS: ZAROXOLYN PO SCH (05:35)
[2018-04-05] MEDS: PRILOSEC PO SCH (05:35)
[2018-04-05] MEDS: K-DUR PO SCH (08:51)
[2018-04-05] MEDS: OMEGA-3 FISH OIL PO SCH (08:51)
[2018-04-05] MEDS: LOVENOX SUBCUT SCH (08:52)
[2018-04-05] MEDS: LIPITOR PO SCH (08:52)
[2018-04-05] MEDS: ZESTRIL PO SCH (08:52)
--- NOTE | 2018-04-05 08:56 | PCM.PROG ---
Attending Provider: ATTENDING PROVIDER: Dr. JEN ROLLE This patient is seen with Parris Uriarte, Nurse Practitioner. DATE OF SERVICE: 04/05/18 SUBJECTIVE: This 87 year old BLACK/ F was hospitalized 03/31/18. The patient is sitting in chair, alert. She has been up and about walking with walker. She has been eating 50 to 75% of her meals. No diarrhea. No abdominal pain. REVIEW OF SYSTEMS: CONSTITUTIONAL: Fatigue. No night sweats. No malaise, lethargy. No fever or chills. HEENT: Eyes: No visual changes. No eye pain. No eye discharge. ENT: No runny nose. No epistaxis. No sinus pain. No odynophagia. No congestion. RESPIRATORY: No cough, no congestion. No hemoptysis. No shortness of breath. CARDIOVASCULAR: No angina symptoms. No CHF symptoms. No atypical chest pain for CAD. No palpitations. No orthopnea.. GASTROINTESTINAL: No abdominal pain. No nausea or vomiting. No diarrhea or constipation. No hematemesis. No hematochezia. GENITOURINARY: No urgency. No frequency. No dysuria. No hematuria. No obstructive symptoms. No discharge. No pain. No significant abnormal bleeding. MUSCULOSKELETAL: No musculoskeletal pain; no joint swelling. NEUROLOGICAL: Awake, alert, oriented to time, place and person. No headache. No neck pain. No syncope. No seizures. No dizziness. PSYCHIATRIC: Not anxious. No depression. No suicidal thoughts. No homicidal thoughts. SKIN: No rash. No lesions. No wounds. ENDOCRINE: No unexplained weight loss. No weight gain. HEMATOLOGIC/LYMPHATIC: No anemia. No purpura. No petechiae. No prolonged or excessive bleeding. No palpable lymph nodes. PHYSICAL EXAMINATION: GENERAL: The patient is awake, alert and oriented, sitting in chair in no distress. VITAL SIGNS: Temperature 97.8 F, Pulse 79, Respiratory Rate 18, BP 101/63, Pulse Ox 97% HEENT: Head normocephalic, atraumatic. Eyes: Extraocular muscles are intact. Pupils are equal, round and reactive to light and accommodation. Ears: No lesions. Nose appeared normal. Throat: No exudate or erythema. NECK: Supple. No JVD, no carotid bruit. No lymphadenopathy or thyromegaly. LUNGS: Clear to auscultation. Percussion note normal. Chest symmetrical. HEART: S1, S2, no S3. Grade II/ murmur. No cyanosis or clubbing. No ascites. Pulses: Dorsalis pedis and posterior tibial pulses +1 to +2 both sides. ABDOMEN: Soft. Non-tender. Bowel sounds active. No CVA tenderness. No mass felt. EXTREMITIES: No edema. Full range of motion of all extremities, equal. NEUROLOGIC: No focal deficit. Cranial nerves II through XII are grossly intact. No headache, no double vision or headache. SKIN: Not dry. Intact. Turgor-normal. LYMPHATIC: No palpable lymph nodes/no lymphedema. MUSCULOSKELETAL: Normal joints with no swelling. Muscle tone is normal. LAB REVIEW: 04/05/18 04:30 04/05/18 04:30 04/05/18 04:30: Sodium 138, Potassium 3.9, Chloride 113 H, Carbon Dioxide 18 L, Anion Gap 10.9, BUN 23 H, Creatinine 1.10, Estimated GFR (MDRD) 57.00, BUN/ Creatinine Ratio 20.90, Glucose 116 H, Calcium 9.3, Total Bilirubin 0.4, AST 16 , ALT 12, Alkaline Phosphatase 46 L, Total Protein 5.9, Albumin 2.9 L, Globulin 3.0, Albumin/Globulin Ratio 0.97 04/05/18 04:30: WBC 7.89, RBC 3.01 L, Hgb 9.1 L, Hct 29.3 L, MCV 97.3 D, MCH 30.2, MCHC 31.1 L, RDW Coeff of Alex 13.3, Plt Count 260, Immature Gran % (Auto) 0.3, Neut % (Auto) 60.0, Lymph % (Auto) 25.0, [place] % (Auto) 10.3 H, Eos % (Auto ) 3.8, Baso % (Auto) 0.6, Immature Gran # (Auto) 0.0, Neut # (Auto) 4.7, Lymph # (Auto) 2.0, [place] # (Auto) 0.8, Eos # (Auto) 0.3, Baso # (Auto) 0.1 ASSESSMENT: 1. ACUTE SIGMOID DIVERTICULITIS 2. UTI UNDER CONTROL 3. HYPOTENSION 4. ANEMIA PLAN: 1. D/C home 2. Levaquin 250 mg times 5 days 3. Flagyl 500 b.i.d. times 5 days 4. Decrease Atenolol to 50 mg daily 5. Echocardiogram before discharge Plan and coordination of the patient's care discussed in the presence of Physician General Internal Medicine and nurse. CONDITION: Stable SCRIBED BY: Matthew GARCIAist scribed while in presence of service performed by Dr. Rolle/Parris Uriarte APRN on 04/05/18 ([id number])
[2018-04-05] MEDS ORDERED: TENORMIN PO SCH (09:00)
--- NOTE | 2018-04-05 10:00 | CM.DICTOOL ---
ADMISSION: 03/31/18 21:40 DISCHARGE: 04/05/18 DATE OF SERVICE: 04/05/18 FINAL DIAGNOSIS ABDOMINAL PAIN, ACUTE DIVERTICULITIS, ACUTE SIGMOID UTI (C/S MIXED GROWTH) HYPOKALEMIA, TREATED HYPERTENSION HYPOTENSION, TREATED MILD AORTIC/MITRAL STENOSIS (PER ECHO 04/05/18) DYSLIPIDEMIA GERD ANEMIA HIATAL HERNIA, SMALL COLON CANCER BY HISTORY ARTHRITIS DEMENTIA GLAUCOMA RIGHT ANKLE SURGERY LEFT WRIST SURGERY HYSTERECTOMY FORMER SMOKER LAST VITALS Temp Pulse Resp BP Pulse Ox 97.8 F 79 18 101/63 97 04/05/18 05:15 04/05/18 05:15 04/05/18 05:15 04/05/18 05:15 04/05/18 05:15 TAKE THESE MEDICATIONS AT HOME Allopurinol (Zyloprim) 100 mg PO BID [facility] Last Admin: 04/05/18 08:52 Dose: 100 mg Atenolol (Tenormin) 50 mg PO DAILY [facility] Last Admin: 04/05/18 08:52 Dose: 50 mg Atorvastatin Calcium (Lipitor) 10 mg PO DAILY [facility] Last Admin: 04/05/18 08:52 Dose: 10 mg Ferrous Sulfate (Ferrous Sulfate) 324 mg PO TID [facility] Last Admin: 04/05/18 08:51 Dose: 324 mg Fish Oil ([place]-3 Fish Oil) 1,000 mg PO DAILY [facility] Last Admin: 04/05/18 08:51 Dose: 1,000 mg Levofloxacin/Dextrose 250 mg PO DAILY x5 DAYS [facility] Last Admin: 04/05/18 00:10 Dose: Not Given Lisinopril (Zestril) 5 mg PO DAILY [facility] Last Admin: 04/05/18 08:52 Dose: 5 mg Memantine (Namenda) 10 mg PO BEDTIME [facility] Last Admin: 04/05/18 00:10 Dose: Not Given Metolazone (Zaroxolyn) 2.5 mg PO DAILY PRN PRN Reason: Swelling Metronidazole 500 mg PO BID x5 DAYS [facility] Last Admin: 04/01/18 06:12 Metolazone (Zaroxolyn) 2.5 mg PO EVERY OTHER DAY@0630 [facility] Last Admin: 04/05/18 05:35 Dose: 2.5 mg Omeprazole (Prilosec) 20 mg PO QDAC [facility] Last Admin: 04/05/18 05:35 Dose: 20 mg Potassium Chloride (K-Dur) 10 meq PO BIDWM [facility] Last Admin: 04/05/18 08:51 Dose: 20 meq Travoprost (Travatan Z) 1 drop OP BEDTIME [facility] Last Admin: 04/05/18 00:10 Dose: Not Given ALLERGIES No Known Allergies Allergy (Verified 03/31/18 19:11) NEW PRESCRIPTIONS: Atenolol [Tenormin] 50 mg PO DAILY #30 tablet 04/05/18 Levofloxacin [Levaquin] 250 mg PO QDAC #5 tablet 04/05/18 Metronidazole [Flagyl] 500 mg PO BID #10 tablet 04/05/18 SMOKING: FORMER SMOKER DISEASE SPECIFIC EDUCATION: DIVERTICULITIS UTI DIET APPROPRIATE FOR DIVERTICULITIS HYPERTENSION/HYPOTENSION HOME MEDICATIONS NEW PRESCRIPTIONS FOLLOW UP LAB REVIEW: 04/05/18 04:30 04/05/18 04:30 04/05/18 04:30: Sodium 138, Potassium 3.9, Chloride 113 H, Carbon Dioxide 18 L, Anion Gap 10.9, BUN 23 H, Creatinine 1.10, Estimated GFR (MDRD) 57.00, BUN/ Creatinine Ratio 20.90, Glucose 116 H, Calcium 9.3, Total Bilirubin 0.4, AST 16 , ALT 12, Alkaline Phosphatase 46 L, Total Protein 5.9, Albumin 2.9 L, Globulin 3.0, Albumin/Globulin Ratio 0.97 04/05/18 04:30: WBC 7.89, RBC 3.01 L, Hgb 9.1 L, Hct 29.3 L, MCV 97.3 D, MCH 30.2, MCHC 31.1 L, RDW Coeff of Alex 13.3, Plt Count 260, Immature Gran % (Auto) 0.3, Neut % (Auto) 60.0, Lymph % (Auto) 25.0, [place] % (Auto) 10.3 H, Eos % (Auto ) 3.8, Baso % (Auto) 0.6, Immature Gran # (Auto) 0.0, Neut # (Auto) 4.7, Lymph # (Auto) 2.0, [place] # (Auto) 0.8, Eos # (Auto) 0.3, Baso # (Auto) 0.1 PLAN: SUMMARY THE PATIENT IS ALERT AND ORIENTED X3. AT HOME SHE HAS BEEN INDEPENDENT WITH HYGIENIC TASKS AND LIGHT HOMEMAKING. 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 SHE HAS A ROLLING WALKER, CANE AND SHOWER CHAIR AT HOME FOR USE WHEN NECESSARY. HER DAUGHTER IS VERY SUPPORTIVE OF HER NEEDS WELL. SHE DESIRES TO RETURN HOME AT DISCHARGE. THE SKIN TURGOR IS INTACT AND WITHOUT DECUBITUS ULCERS. MS. LONDONO'S APPETITE IS FAIR. HYDRATION STATUS IS IMPROVED SINCE ADMISSION. THE HOME HEALTH CAREGIVER HAS SPOKEN WITH HER AT LENGTH REGARDING APPROPRIATE DIET FOR HER DIVERTICULITIS. SHE AND HER DAUGHTER HAVE A GOOD UNDERSTANDING OF THE MATERIAL PRESENTED AND HAVE VERBALIZED THEIR INTENT TO COMPLY. MS. LONDONO WILL BE SEEN THROUGH THE OFFICE FOR FOLLOW UP NEXT WEEK. CURRENT CODE STATUS FULL CODE NIKKI ARIAS APRN JEN ROLLE M.D.
[2018-04-05 10:22] VITALS: BP 114/63; TEMP 97.9
--- NOTE | 2018-04-06 11:02 | RS.OTQKDC ---
OT Discharge Date of Discharge: 04/06/18 Reason for Discharge: Pt discharged from the hospital to her home.
--- NOTE | 2018-04-06 13:22 | DS ---
DATE OF SERVICE: 04/05/18 FINAL DIAGNOSIS: ABDOMINAL PAIN, ACUTE DIVERTICULITIS, ACUTE SIGMOID UTI (C/S MIXED GROWTH) HYPOKALEMIA, TREATED HYPERTENSION HYPOTENSION, TREATED MILD AORTIC/MITRAL STENOSIS (PER ECHO 04/05/18) DYSLIPIDEMIA GERD ANEMIA HIATAL HERNIA, SMALL COLON CANCER BY HISTORY ARTHRITIS DEMENTIA GLAUCOMA RIGHT ANKLE SURGERY LEFT WRIST SURGERY HYSTERECTOMY FORMER SMOKER LAST VITALS: Temp Pulse Resp BP Pulse Ox 97.8 F 79 18 101/63 97 TAKE THESE MEDICATIONS AT HOME: Allopurinol (Zyloprim) 100 mg PO BID [facility] Bystolic 10 mg PO DAILY Atorvastatin Calcium (Lipitor) 10 mg PO DAILY [facility] Ferrous Sulfate (Ferrous Sulfate) 324 mg PO TID [facility] Fish Oil ([place]-3 Fish Oil) 1,000 mg PO DAILY [facility] Levofloxacin/Dextrose 250 mg PO DAILY x5 DAYS [facility] Lisinopril (Zestril) 5 mg PO DAILY [facility] Memantine (Namenda) 10 mg PO BEDTIME [facility] Metolazone (Zaroxolyn) 2.5 mg PO EVERY OTHER DAY Metronidazole 500 mg PO BID x5 DAYS [facility] Metolazone (Zaroxolyn) 2.5 mg PO EVERY OTHER DAY@0630 [facility] Potassium Chloride (K-Dur) 10 meq PO BIDWM [facility] Ranitidine HCL (Zantac) OTC 150 mg PO BID Recl[facility] 5 mg /100 ml Rivaroxaban (Xarelto) 20 mg PO DAILY with EVENING MEAL Travoprost (Travatan Z) 1 drop OP BEDTIME [facility] Vitamin D 3 1000 IU PO DAILY ALLERGIES: No Known Allergies Allergy (Verified 03/31/18 19:11) NEW PRESCRIPTIONS: Levofloxacin [Levaquin] 250 mg PO QDAC #5 tablet 04/05/18 Metronidazole [Flagyl] 500 mg PO BID #10 tablet 04/05/18 SMOKING: FORMER SMOKER DISEASE SPECIFIC EDUCATION: DIVERTICULITIS UTI DIET APPROPRIATE FOR DIVERTICULITIS HYPERTENSION/HYPOTENSION HOME MEDICATIONS NEW PRESCRIPTIONS FOLLOW UP PLAN: DISCHARGE HOME TODAY, 04/05/[address] ROLLE IN HIS OFFICE ON 04/12/18 AT 8:30 A.M. RESUME YOUR HOME MEDICATIONS PER LIST PROVIDED BY THE NURSING STAFF METOLAZONE 2.5 MG TAKE ONE TABLET BY MOUTH EVERY OTHER DAY (FREQUENCY INCREASED ) NEW PRESCRIPTIONS FLAGYL 500 MG, TAKE ONE TABLET BY MOUTH TWICE DAILY FOR 5 DAYS LEVAQUIN 250 MG, TAKE ONE TABLET BY MOUTH DAILY FOR 5 DAYS ACTIVITY: GET PLENTY OF REST AT HOME. GRADUALLY INCREASE YOUR ACTIVITY ACCORDING TO YOUR TOLERATION DIET: DIVERTICULITIS APPROPRIATE DIET (SEE INSTRUCTIONS PROVIDED) HOSPITAL COURSE: This is an 87 year old [place] female who was brought to the emergency room after having a spell of nausea and vomiting at home with left lower quadrant pain. CT scan revealed acute sigmoid diverticulitis. Urine was abnormal although urine culture only showed 30,000 colonies. She was admitted and placed on Flagyl IV 500mg Q 8 hours along with Levaquin 250mg IV daily. She was covered on Lovenox prophylactically. All of her home medications were continued. She does have a murmur with a history of aortic stenosis and hadn't had an echo in some time so an echo was done this morning by Dr. Rolle which did show mild to moderate Aortic stenosis. Over the course of the past several days her abdominal pain was steadily improved each day. She has no diarrhea now for 48 hours. She was also started on normal saline at 75cc an hour. Her blood pressure was initially low and has remained rather low in the hospital, 100/60. I decreased her Tenormin from 100 to 50mg daily. She has a history of anemia. Anemia profile was normal, she is not iron deficient. Hgb has remained stable between 9.1 and 9.5. Today on day of discharged hgb is 9.1, sodium 138, potassium 3.9, BUN 23, creatinine 1.1. For the past 48 hours she has been eating 50-75% of her meals. She has also been up and about walking around in the room. She has remained on telemetry during her stay which has showed normal sinus rhythm. Information has been given to her regarding her diet. She needs to avoid seeds, nuts, popcorn etc. She had a dietary consult. She will be discharged on Levaquin 250mg daily for the next 5 days along with Flagyl 500mg twice a day for the next 5 days. She will followup with us in the office. She is instructed to go to the emergency room if signs or symptoms begin to worsen such as fever, vomiting or return of abdominal pain. TIME SPENT: More than 60 minutes. KEENA
--- NOTE | 2018-04-10 12:08 | ECHO2D ---
Date of Exam: 04/05/18 Ordering Physician: DR. JEN ROLLE Room #: 112 Reason for Echo: WEAKNESS, SYSTOLIC MURMUR M-Mode Normal Adult Results LV Dimensions Normal Adult Results AoV Opening excursions >1.6 1.2 LVEDD-base- 3.5-5.8 3.2 Ao root dimensions 2.0-3.7 3.2 LVESD-base- 3.1-4.6 L. Atrium dimensions 1.9-3.8 4.4 Post. Wall thickness 0.8-1.1 1.2 IV septum (thickness) 0.7-1.2 1.2 Post. Wall excursion 0.72-1.3 NORMAL Septal motion NORMAL Systolic motion R. 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 LEFT VENTRICULAR HYPERTROPHY WITH ENLARGED LEFT ATRIAL CAVITY 2. MILD MITRAL STENOSIS--VALVE AREA 2.2 CM2 3. CALCIFIC MITRAL VALVE ANNULUS 4. CALCIFIC AORTIC STENOSIS MILD AREA 1.6CM2 5. NORMAL LEFT VENTRICULAR CONTRACTILITY MTDD
== END 2018-04-05 14:55 | disposition home or self-care (01) | DRG 392 ==
LOC: ED 18:56 → MEDSURG B 21:40
PROVIDERS: ADMIT Internal Medicine; ATTEND Internal Medicine
DX: K57.92 Diverticulitis of intestine, part unspecified, without perforation or abscess without bleeding (principal); N39.0 Urinary tract infection, site not specified; R63.0 Anorexia; F41.9 Anxiety disorder, unspecified; F03.90 Unspecified dementia, unspecified severity, without behavioral disturbance, psychotic disturbance, mood disturbance, and anxiety; I10 Essential (primary) hypertension; I95.9 Hypotension, unspecified; I05.0 Rheumatic mitral stenosis; D64.9 Anemia, unspecified; E87.6 Hypokalemia; E78.5 Hyperlipidemia, unspecified; K21.9 Gastro-esophageal reflux disease without esophagitis; K44.9 Diaphragmatic hernia without obstruction or gangrene; M19.90 Unspecified osteoarthritis, unspecified site; H40.9 Unspecified glaucoma
CPT/HCPCS: 36415; 74176; 80053; 81001; 82150; 82607; 82728; 82746; 83036; 83540; 83550; 83690; 84466; 85025; 85045; 87086; 93005; 93010; 96361; 96365; 96375; 97802; 99284

== ENCOUNTER 2019-01-31 08:52 | Outpatient (CLI) ==
[2013-01-29 07:37] VITALS: TEMP 96.7
--- NOTE | 2019-01-31 10:18 | DEXA ---
EXAM: Bone densitometry. History: Osteoporosis. Findings: Evaluation of the lumbar spine reveals a total bone mineral density of 1.108 grams per centimeter squ ared with T-score of negative 0.6. Evaluation of the left hip reveals a total bone mineral density of 0.887 grams per centimeter squared with T-score of negative 1.0. Evaluation of the right hip reveals a total bone mineral density of 0.929 grams per centimeter square d with T-score of negative 0.6. FRAX: 10-year probability for major osteoporotic fracture is 5.4% and 1.5% for hip fracture. Impression: Normal bone mineral density of the lumbar spine and bilateral hips
--- NOTE | 2019-02-01 11:09 | MAMMO ---
EXAM: Bilateral digital screening mammogram (2-D and 3-D) History: Screening Comparison: Bilateral mammogram 01/29/2018 Findings: MLO and CC views of bilateral breasts demonstrate scattered fibroglandular breast parenchy ma. CAD was reviewed by the radiologist. Tomosynthesis was performed. Stable benign bilateral luciana st calcifications and stable bilateral breast nodules. There are no developing masses, no suspicious microcalcifications and no architectural distortions Impression: Benign stable mammogram. Recommend followup routine screening mammography in 1 year. BI-RADS 2, benign
== END 2019-01-31 08:53 | disposition home or self-care (01) ==
LOC: RAD 08:52
PROVIDERS: ATTEND Internal Medicine
DX: Z12.31 Encounter for screening mammogram for malignant neoplasm of breast (principal); M81.0 Age-related osteoporosis without current pathological fracture

== ENCOUNTER 2019-05-26 10:46 | Inpatient (IN) ==
[2019-05-26] MEDS ORDERED: SODIUM CHLORIDE 1,000 ML IV STA (11:10)
--- NOTE | 2019-05-26 12:37 | ED.PDOC ---
General ED Provider: Dr. JEOVANNY HUNT Chief Complaint: Abdominal Pain Stated Complaint: i was hurting earlier but not now Time Seen by Physician: 12:49 Mode of Arrival: Walk-In Information Source: Patient Primary Care Provider: JEN ROLLE Nursing and Triage Documentation Reviewed and Agree: Yes Does patient meet sepsis criteria?: No System Inflammatory Response Syndrome: Not Applicable Sepsis Protocol: For patient's 13 years and over: Temp is 96.8 and below OR 101 and greater Pulse >90 BPM Resp >20/minute Acutely Altered Mental Status Are patient's symptoms suggestive of a new infection, such as: -Pneumonia -Skin, Soft Tissue -Endocarditis -UTI -Bone, Joint Infection -Implantable Device -Acute Abdominal Infection -Wound Infection -Meningitis -Blood Stream Catheter Infection -Unknown GI Complaint Exam Abdominal Pain Complaint/Exam Onset: Gradual Duration: several days Symptoms Are: Still present Timing: Intermittent Initial Severity: Mild Current Severity: Mild Location of Pain: Discrete Character: Reports Dull and Aching Aggravating: Reports None Alleviating: Reports Spontaneous resolution Patient Rh Status: Unknown Abdominal Findings: Present None Review of Systems Review Of Systems Constitutional: Reports No symptoms Eyes: Reports No symptoms Ears, Nose, Mouth, Throat: Reports No symptoms Respiratory: Reports No symptoms Cardiac: Reports No symptoms GI: Reports Abdominal pain : Reports No symptoms Musculoskeletal: Reports No symptoms Skin: Reports No symptoms Neurological: Reports No symptoms Endocrine: Reports No symptoms Hematologic/Lymphatic: Reports No symptoms All Other Systems: Reviewed and Negative [facility] Medical History Arthritis Elevated cholesterol Hypertension Stroke Family History 32 MOTHER Hypertension 33 FATHER No problems noted. Other Cancer Social History Smoking and tobacco status: Never smoker History of recent travel: No Physical Exam Physical Exam Appearance: Well-appearing Ill-appearing: None Pain Distress: None Eyes: VICENTE, EOMI and Conjunctiva clear ENT: Ears normal Neck: Supple Respiratory: Airway patent Cardiovascular: RRR and Pulses normal GI/: Soft Musculoskeletal: Normal strength Skin: Warm Neurological: Sensation intact Psychiatric: Affect appropriate Interpretation Radiology Interpretation Radiology Interpretation By: Radiologist Radiology Results: Positive Exam Interpreted: CT Scan EKG Interpretation Time of EKG #1: 12:36 Rate: Normal Rhythm: Sinus Ectopy: None [place]: NL ST Segment: Normal Interpretation: nsr Critical Care Note Critical Care Note Total Time (mins): 0 Course Course Hematology/Chemistry: 05/26/19 11:13 05/26/19 11:13 Orders, Labs, Meds: Lab Review 05/26/19 05/26/19 11:13 11:13 WBC 18.54 H RBC 3.37 L Hgb 10.7 L Hct 31.4 L MCV 93.2 MCH 31.8 H MCHC 34.1 RDW Coeff of Alex 13.2 Plt Count 228 Immature Gran % (Auto) 0.7 Neut % (Auto) 85.8 Lymph % (Auto) 5.9 L [place] % (Auto) 7.3 Eos % (Auto) 0.1 Baso % (Auto) 0.2 Immature Gran # (Auto) 0.1 Neut # (Auto) 15.9 H Lymph # (Auto) 1.1 [place] # (Auto) 1.4 Eos # (Auto) 0.0 Baso # (Auto) 0.0 ESR 73 H Sodium 135.7 Potassium 3.57 Chloride 102.2 Carbon Dioxide 25.1 Anion Gap 11.97 BUN 28.4 H Creatinine 1.38 H Estimated GFR (MDRD) 44.00 BUN/Creatinine Ratio 20.57 Glucose 181.5 H Calcium 9.04 Total Bilirubin 1.08 AST 27.8 ALT 22.7 Alkaline Phosphatase 70.5 Total Creatine Kinase 193.9 H CK-MB (CK-2) 1.780 CK-MB (CK-2) % 0.9100 Troponin I < 0.012 Total Protein 7.43 Albumin 4.05 Globulin 3.38 Albumin/Globulin Ratio 1.19 Amylase 59.5 Lipase 14.8 L Orders Category Date Time Status EKG-(ED ONLY) Stat CARDIO 05/26/19 11:03 Ordered NPO REMINDER: IMAGING ONCE CARE 05/26/19 11:11 Completed ED IV/MEDIPORT/POWERPORT .ONCE EMERGENCY 05/26/19 11:02 Active AMYLASE Stat LAB 05/26/19 11:13 Completed CBC W/ AUTO DIFF Stat LAB 05/26/19 11:13 Completed COMPREHENSIVE METABOLIC PANEL Stat LAB 05/26/19 11:13 Completed CREATINE KINASE Stat LAB 05/26/19 11:13 Completed ESR Stat LAB 05/26/19 11:13 Completed LIPASE Stat LAB 05/26/19 11:13 Completed TROPONIN I Stat LAB 05/26/19 11:13 Completed URINALYSIS C & S IF INDICATED Stat LAB 05/26/19 11:02 Uncollected 0.9 % Sodium Chloride [Saline Flush] MEDS 05/26/19 11:02 Active 1 syr IVF PRN PRN Sodium Chloride 0.9% [Sodium Chloride] 1,000 ml MEDS 05/26/19 11:10 Active IV 30 mls/hr CT ABDOMEN/PELVIS WO CONTRAST Stat RADS 05/26/19 11:52 Completed Medications Generic Name Dose Route Start Last Admin Trade Name Freq PRN Reason Stop Dose Admin Sodium Chloride 1,000 mls @ 30 mls/hr 05/26/19 11:10 05/26/19 11:44 Sodium Chloride IV 05/27/19 20:29 30 mls/hr .[id number] STA Administration Sodium Chloride 1 syr 05/26/19 11:02 Saline Flush IVF PRN PRN To flush IV Vital Signs: Temp Pulse Resp BP Pulse Ox 05/26/19 10:50 98.6 F 87 18 126/77 98 Discharge Plan Discharge Patient Disposition: ADMITTED INPATIENT Discharge Problem: Diverticulitis of sigmoid colon Prescriptions: No Action lisinopril 5 MG tablet 5 mg PO DAILY RF: 0 potassium chloride [Klor-Con 10] 10 MEQ tablet extended release 10 meq PO DAILY RF: 0 atorvastatin 10 MG tablet 10 mg PO DAILY RF: 0 allopurinol 100 MG tablet 100 mg PO BID RF: 0 Fish Oil 300 MG capsule 300 mg PO DAILY RF: 0 ferrous sulfate 324 MG tablet,delayed release (DR/EC) 324 mg PO TID RF: 0 memantine [Namenda] 10 MG tablet 10 mg PO BEDTIME RF: 0 Travatan Z 1 DROP drops 1 drp BOTHEYES BEDTIME RF: 0 metolazone 2.5 MG tablet 2.5 mg PO EVERY OTHER DAY Qty: 1 RF: 0 ranitidine HCl [Acid Audio Narrator (ranitidine)] 150 MG tablet 150 mg PO BID RF: 0 cholecalciferol (vitamin D3) [Vitamin D3] 1,000 UNIT tablet 1,000 unit PO DAILY RF: 0 zoledronic [id number] [Reclast] 5 MG/100 ML piggyback 5 mg IV DIRECTED RF: 0 Bystolic 10 MG tablet 10 mg PO DAILY RF: 0 Xarelto 20 MG tablet 20 mg PO DAILY RF: 0 ED Provider: JEOVANNY HUNT Condition: Stable
--- NOTE | 2019-05-26 12:41 | CT ---
EXAM: CT abdomen pelvis without contrast HISTORY: Abdominal pain COMPARISON: 03/31/2018 TECHNIQUE: CT abdomen pelvis performed without intravenous contrast. Coronal and sagittal reformatt ed images obtained. FINDINGS: Lung bases clear. No free air. Degenerative change in the spine. Osteoarthritis of the hips. Heart top normal in size. Coronary calcifications. Evaluation organ parenchyma limited witho ut contrast. Liver unremarkable , excepting granulomas calcification. Gallbladder unremarkable. Pa ncreas unremarkable. Spleen unremarkable. Adrenals unremarkable. 1 cm nonobstructing left renal ca lculus. No hydronephrosis or nephrolithiasis. Small left renal cyst measures fluid attenuation. No calculi visualized in normal course the ureters. Bladder only minimally distended and poorly evalua yashira. Aorta normal in caliber. Mild atherosclerosis. There is a mesenteric mass located inferior to the pancreatic head measuring 2.4 x 2.0 cm. Large mass containing calcifications associated with th e right psoas muscle extending into the L4-L5 neural foramen on the right measuring 6.3 x 3.8 cm and grossly unchanged. Small hiatal hernia. No dilated loops small bowel. Appendix appears normal. Is not visualized, likely surgically absent. Colonic diverticulosis. Wall thickening and inflammatory stranding surrounding the sigmoid colon wit h diverticula in this region, with focal fluid seen on image 27 axial, measuring 1.3 cm, with this re gion of fluid extending to a region of small bowel with associated small bowel wall thickening. This may represent a developing abscess, though majority of this region cannot be clearly delineated from the adjacent thickened small bowel. Inflammatory stranding extends to near the bladder. Small free fluid in the pelvis. No free air. IMPRESSION: 1. Sigmoid diverticulitis with possible associated colitis. Additionally, there is a 1.3 cm region of focal fluid in the al-sigmoid region that is extends to a region of small bowel with associated small bowel wall thickening. This may represent a developing abscess, though the majority of this re gion cannot be differentiated from the thickened small bowel. The small bowel wall thickening is non specific and may be infectious/inflammatory or reactive.. Additionally, information extends to the r egion of the bladder. This is most likely reactive, though superimposed cystitis not excluded. Smal l free fluid in the pelvis. 2. 2.4 cm mesenteric mass is indeterminate and may represent a neoplasm. 3. 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 4. Left nephrolithiasis. No hydronephrosis. 5. Coronary calcifications. Finding #1 and #[address] Oneal 12:30 p.m. 05/26/2019.
[2019-05-26] MEDS ORDERED: ZOSYN 3.375 GM 3.375 GM in SODIUM CHLORIDE 50 ML IV SCH (13:00)
[2019-05-26] MEDS ORDERED: SODIUM CHLORIDE 0.9%-KCL 20 MEQ 1,000 ML IV SCH (13:00)
[2019-05-26] MEDS ORDERED: HUMULIN R SUBCUT PRN (13:25)
[2019-05-26 15:22] VITALS: BMI 26.3
[2019-05-26] MEDS: FERROUS SULFATE PO SCH ×2 (15:27→21:16)
[2019-05-26] MEDS: SODIUM CHLORIDE 0.9%-KCL 20 MEQ 1,000 ML IV SCH (15:31)
[2019-05-26] MEDS: ZANTAC PO SCH (17:12)
[2019-05-26] MEDS: FLAGYL 500 MG/100 ML 500 MG/100 ML BAG IV SCH (17:12)
[2019-05-26] MEDS: TRAVATAN Z EACHEYE SCH (21:16)
[2019-05-26] MEDS: ZOSYN 2.25 GM 2.25 GM in SODIUM CHLORIDE 50 ML IV SCH (21:16)
[2019-05-26] MEDS: NAMENDA PO SCH (21:16)
[2019-05-26] MEDS: ZYLOPRIM PO SCH (21:18)
[2019-05-27] MEDS: FLAGYL 500 MG/100 ML 500 MG/100 ML BAG IV SCH ×4 (00:33→19:43)
[2019-05-27] MEDS: ZANTAC PO SCH ×2 (05:44→17:25)
[2019-05-27] MEDS: ZOSYN 2.25 GM 2.25 GM in SODIUM CHLORIDE 50 ML IV SCH ×3 (05:44→21:24)
--- NOTE | 2019-05-27 08:49 | PCM.PROG ---
Attending Provider: ATTENDING PROVIDER: Dr. JEN ROLLE This patient is seen with Parris Uriarte, Nurse Practitioner. DATE OF SERVICE: 05/27/19 SUBJECTIVE: This 88 year old AA/BLACK F was hospitalized 05/26/19. Abdominal pain is slightly improved. Still has some diarrhea. No fever. REVIEW OF SYSTEMS: CONSTITUTIONAL: No night sweats. No fatigue, malaise, lethargy. No fever or chills. HEENT: Eyes: No visual changes. No eye pain. No eye discharge. ENT: No runny nose. No epistaxis. No sinus pain. No odynophagia. No congestion. RESPIRATORY: No cough, no congestion. No hemoptysis. No shortness of breath. CARDIOVASCULAR: No angina symptoms. No CHF symptoms. No atypical chest pain for CAD. No palpitations. No orthopnea.. GASTROINTESTINAL: Abdominal pain. No nausea or vomiting. Diarrhea or constipation. No hematemesis. No hematochezia. GENITOURINARY: No urgency. No frequency. No dysuria. No hematuria. No obstructive symptoms. No discharge. No pain. No significant abnormal bleeding. MUSCULOSKELETAL: No musculoskeletal pain; no joint swelling. NEUROLOGICAL: Awake, alert, oriented to time, place and person. No headache. No neck pain. No syncope. No seizures. No dizziness. PSYCHIATRIC: Not anxious. No depression. No suicidal thoughts. No homicidal thoughts. SKIN: No rash. No lesions. No wounds. ENDOCRINE: No unexplained weight loss. No weight gain. HEMATOLOGIC/LYMPHATIC: No anemia. No purpura. No petechiae. No prolonged or excessive bleeding. No palpable lymph nodes. PHYSICAL EXAMINATION: GENERAL: The patient is awake, alert and oriented, lying in bed in no distress. VITAL SIGNS: Temperature 98.1 F, Pulse 69, Respiratory Rate 14, BP 103/61, Pulse Ox 95% HEENT: Head normocephalic, atraumatic. Eyes: Extraocular muscles are intact. Pupils are equal, round and reactive to light and accommodation. Ears: No lesions. Nose appeared normal. Throat: No exudate or erythema. NECK: Supple. No JVD, no carotid bruit. No lymphadenopathy or thyromegaly. LUNGS: Diminished breath sounds. Clear to auscultation. Percussion note norm al. Chest symmetrical. HEART: S1, S2, no S3. Grade II/ [place]. No cyanosis or clubbing. No ascites. Pulses: Dorsalis pedis and posterior tibial pulses +1 to +2 both sides. ABDOMEN: Soft. Left abdominal tenderness. Non-tender. Bowel sounds active. No CVA tenderness. No mass felt. EXTREMITIES: No edema. Full range of motion of all extremities, equal. NEUROLOGIC: No focal deficit. Cranial nerves II through XII are grossly intact. No headache, no double vision or headache. SKIN: Not dry. Intact. Turgor-normal. LYMPHATIC: No palpable lymph nodes/no lymphedema. MUSCULOSKELETAL: Normal joints with no swelling. Muscle tone is normal. LAB REVIEW: 05/27/19 04:00 05/27/19 04:00 05/27/19 04:00: Sodium 135.9, Potassium 3.57, Chloride 106.9, Carbon Dioxide 22.1, Anion Gap 10.47, BUN 31.7 H, Creatinine 1.41 H, Estimated GFR (MDRD) 43.00, BUN/Creatinine Ratio 22.48, Glucose 117.3 H D, Calcium 8.28 L, Total Bilirubin 0.92, AST 20.3, ALT 18.2, Alkaline Phosphatase 58.2, Total Protein 6.35, Albumin 3.38 L, Globulin 2.97, Albumin/Globulin Ratio 1.13 05/27/19 04:00: WBC 13.52 H D, RBC 3.00 L, Hgb 9.5 L, Hct 28.7 L, MCV 95.7, MCH 31.7 H, MCHC 33.1, RDW Coeff of Alex 13.3, Plt Count 210, Immature Gran % (Auto) 0.7, Neut % (Auto) 77.9, Lymph % (Auto) 9.7 L, [place] % (Auto) 10.5 H, Eos % (Auto) 1.0, Baso % (Auto) 0.2, Immature Gran # (Auto) 0.1, Neut # (Auto) 10.5 H, Lymph # (Auto) 1.3, [place] # (Auto) 1.4, Eos # (Auto) 0.1, Baso # (Auto) 0.0 05/26/19 21:49: Urine Color Yellow, Urine Clarity Clear, Urine pH 6.5, Ur Specific [place] 1.020, Urine Protein Trace, Urine Glucose (UA) Negative, Urine Ketones Negative, Urine Blood Trace-lysed, Urine Nitrite Negative, Urine Bilirubin Negative, Urine Urobilinogen 1.0, Ur Leukocyte Esterase Trace, Urine Microscopic RBC 0-2, Urine Microscopic WBC 2-5, Ur Squamous Epith Cells 0-2, H yaline Casts 0-2 05/26/19 11:13: Sodium 135.7, Potassium 3.57, Chloride 102.2, Carbon Dioxide 25.1, Anion Gap 11.97, BUN 28.4 H, Creatinine 1.38 H, Estimated GFR (MDRD) 44.00, BUN/Creatinine Ratio 20.57, Glucose 181.5 H, Calcium 9.04, Total Bilirubin 1.08, AST 27.8, ALT 22.7, Alkaline Phosphatase 70.5, Total Creatine Kinase 193.9 H, CK-MB (CK-2) 1.780, CK-MB (CK-2) % 0.9100, Troponin I < 0.012, Total Protein 7.43, Albumin 4.05, Globulin 3.38, Albumin/Globulin Ratio 1.19, Amylase 59.5, Lipase 14.8 L 05/26/19 11:13: WBC 18.54 H, RBC 3.37 L, Hgb 10.7 L, Hct 31.4 L, MCV 93.2, MCH 31.8 H, MCHC 34.1, RDW Coeff of Alex 13.2, Plt Count 228, Immature Gran % (Auto) 0.7, Neut % (Auto) 85.8, Lymph % (Auto) 5.9 L, [place] % (Auto) 7.3, Eos % (Auto) 0.1, Baso % (Auto) 0.2, Immature Gran # (Auto) 0.1, Neut # (Auto) 15.9 H, Lymph # (Auto) 1.1, [place] # (Auto) 1.4, Eos # (Auto) 0.0, Baso # (Auto) 0.0, ESR 73 H ASSESSMENT: Please see below. 1. Acute diverticulitis 2. Dehydration 3. Anemia 4. Aortic stenosis. PLAN: 1. Decrease Xarelto 15mg. decrease 2. A1c 3. Restart Normal saline at 75 and give 20meq Potassium daily 4. Hold Zaroxolyn Plan and coordination of the patient's care discussed in the presence of Glass Etcher and nurse. SCRIBED BY: EVELYN SNYDER, Actuarial Manager scribed while in presence of service performed by Dr. Rolle/Parris Uriarte APRN on 05/27/19 ([id number])
[2019-05-27] MEDS ORDERED: K-DUR PO SCH (09:00)
[2019-05-27] MEDS ORDERED: BYSTOLIC PO SCH (09:00)
[2019-05-27] MEDS ORDERED: MICRO-K CAP PO SCH ×2 (09:00)
[2019-05-27] MEDS ORDERED: XARELTO PO SCH (09:00)
[2019-05-27] MEDS: SODIUM CHLORIDE 0.9%-KCL 20 MEQ 1,000 ML IV SCH ×3 (10:27→23:22)
[2019-05-27] MEDS: FERROUS SULFATE PO SCH ×3 (10:27→20:27)
[2019-05-27] MEDS: ZESTRIL PO SCH (10:28)
[2019-05-27] MEDS: K-DUR PO SCH (10:29)
[2019-05-27] MEDS: XARELTO PO SCH (10:29)
[2019-05-27] MEDS: LIPITOR PO SCH (10:29)
[2019-05-27] MEDS: ZYLOPRIM PO SCH ×2 (10:29→20:27)
[2019-05-27] MEDS: NAMENDA PO SCH (20:27)
[2019-05-27] MEDS: TRAVATAN Z EACHEYE SCH (20:27)
[2019-05-28] MEDS: FLAGYL 500 MG/100 ML 500 MG/100 ML BAG IV SCH ×4 (00:04→18:00)
[2019-05-28] MEDS: ZOSYN 2.25 GM 2.25 GM in SODIUM CHLORIDE 50 ML IV SCH ×5 (01:22→23:28)
[2019-05-28] MEDS: ZANTAC PO SCH (05:35)
[2019-05-28] MEDS: K-DUR PO SCH (08:57)
[2019-05-28] MEDS: LIPITOR PO SCH (08:58)
[2019-05-28] MEDS: ZESTRIL PO SCH (08:58)
[2019-05-28] MEDS: XARELTO PO SCH (08:58)
[2019-05-28] MEDS: ZYLOPRIM PO SCH ×2 (08:58→20:59)
[2019-05-28] MEDS: FERROUS SULFATE PO SCH ×3 (08:58→20:59)
[2019-05-28] MEDS ORDERED: ZAROXOLYN PO SCH (09:00)
--- NOTE | 2019-05-28 09:06 | PCM.PROG ---
Attending Provider: ATTENDING PROVIDER: Dr. JEN ROLLE This patient is seen with Parris Uriarte, Nurse Practitioner. DATE OF SERVICE: 05/28/19 SUBJECTIVE: This 88 year old AA/BLACK F was hospitalized 05/26/19. The patient is running a temperature of 99 this morning. Abdominal pain has improved. Still with some diarrhea. She feels like eating today. REVIEW OF SYSTEMS: CONSTITUTIONAL: No night sweats. No fatigue, malaise, lethargy. No fever or chills. Weakness. HEENT: Eyes: No visual changes. No eye pain. No eye discharge. ENT: No runny nose. No epistaxis. No sinus pain. No odynophagia. No congestion. RESPIRATORY: No cough, no congestion. No hemoptysis. No shortness of breath. CARDIOVASCULAR: No angina symptoms. No CHF symptoms. No atypical chest pain for CAD. No palpitations. No orthopnea.. GASTROINTESTINAL: Abdominal pain. Nausea. No diarrhea or constipation. No hematemesis. No hematochezia. GENITOURINARY: No urgency. No frequency. No dysuria. No hematuria. No obstructive symptoms. No discharge. No pain. No significant abnormal bleeding. MUSCULOSKELETAL: No musculoskeletal pain; no joint swelling. NEUROLOGICAL: Awake, alert, oriented to time, place and person. No headache. No neck pain. No syncope. No seizures. No dizziness. PSYCHIATRIC: Not anxious. No depression. No suicidal thoughts. No homicidal thoughts. SKIN: No rash. No lesions. No wounds. ENDOCRINE: No unexplained weight loss. No weight gain. HEMATOLOGIC/LYMPHATIC: No anemia. No purpura. No petechiae. No prolonged or excessive bleeding. No palpable lymph nodes. PHYSICAL EXAMINATION: GENERAL: The patient is awake, alert and oriented, lying in bed in no distress. VITAL SIGNS: Temperature 99.2 F, Pulse 67, Respiratory Rate 18, BP 117/63, Pulse Ox 97% HEENT: Head normocephalic, atraumatic. Eyes: Extraocular muscles are intact. Pupils are equal, round and reactive to light and accommodation. Ears: No lesions. Nose appeared normal. Throat: No exudate or erythema. NECK: Supple. No JVD, no carotid bruit. No lymphadenopathy or thyromegaly. LUNGS: Diminished breath sounds. Clear to auscultation. Percussion note normal. Chest symmetrical. HEART: S1, S2, no S3. Grade II/ systolic murmurs. No cyanosis or clubbing. No ascites. Pulses: Dorsalis pedis and posterior tibial pulses +1 to +2 both sides. ABDOMEN: Soft. Non-tender. Bowel sounds active. No CVA tenderness. No mass felt. Left abdominal tenderness. EXTREMITIES: No edema. Full range of motion of all extremities, equal. NEUROLOGIC: No focal deficit. Cranial nerves II through XII are grossly intact. No headache, no double vision or headache. SKIN: Not dry. Intact. Turgor-normal. LYMPHATIC: No palpable lymph nodes/no lymphedema. MUSCULOSKELETAL: Normal joints with no swelling. Muscle tone is normal. LAB REVIEW: 05/28/19 04:25 05/28/19 04:25 05/28/19 04:25: Sodium 136.2, Potassium 3.55, Chloride 107.9 H, Carbon Dioxide 20.3 L, Anion Gap 11.55, BUN 21.2 H, Creatinine 1.26, Estimated GFR (MDRD) 49.00, BUN/Creatinine Ratio 16.82, Glucose 107.3 H, Calcium 8.51, Total Bilirubin 0.77, AST 22.5, ALT 16.8, Alkaline Phosphatase 59.0, Total Protein 6.39, Albumin 3.38 L, Globulin 3.01, Albumin/Globulin Ratio 1.12 05/28/19 04:25: WBC 8.87, RBC 2.84 L, Hgb 8.9 L, Hct 26.8 L, MCV 94.4, MCH 31.3 H, MCHC 33.2, RDW Coeff of Alex 13.1, Plt Count 219, Immature Gran % (Auto) 0.3, Neut % (Auto) 71.6, Lymph % (Auto) 13.2, [place] % (Auto) 12.1 H, Eos % (Auto) 2.5, Baso % (Auto) 0.3, Immature Gran # (Auto) 0.0, Neut # (Auto) 6.4, Lymph # (Auto) 1.2, [place] # (Auto) 1.1, Eos # (Auto) 0.2, Baso # (Auto) 0.0 05/27/19 04:00: Hemoglobin A1c 5.47 ASSESSMENT: Please see below. 1. Acute sigmoid diverticulitis possible abscess, questionable mass versus infection 2. Anemia 3. Chronic kidney disease 4. Aortic stenosis PLAN: 1. Discontinue IV fluids 2. CT of abdomen tomorrow with and without contrast 3. Stop Accu-checks 4. Continue to hold Bystolic 5. Protonix 40mg BID 6. Hold Zantac Plan and coordination of the patient's care discussed in the presence of Information Consultant and nurse. SCRIBED BY: EVELYN SNYDER Vocational Guidance Counselor scribed while in presence of service performed by Dr. Rolle/Parris Uriarte APRN on 05/28/19 ([id number])
[2019-05-28] MEDS: PROTONIX PO SCH ×2 (09:10→18:00)
--- NOTE | 2019-05-28 10:01 | HP ---
DATE OF SERVICE: 05/26/19 HISTORY OF PRESENT ILLNESS: 88-year-old white female who presents to the emergency room complaining of abdominal pain, has been hurting since about Monday of last week. She has had some diarrhea. 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 REVIEW OF SYSTEMS: CONSTITUTIONAL: No night sweats. No fatigue, malaise, lethargy. No fever or chills. HEENT: Eyes: No visual changes. No eye pain. No eye discharge. ENT: No runny nose. No epistaxis. No sinus pain. No sore throat. No odynophagia. No ear pain. No congestion. RESPIRATORY: No cough, no congestion. No hemoptysis. No shortness of breath. CARDIOVASCULAR: No angina symptoms. No CHF symptoms. No atypical chest pain for CAD. No palpitations. No PND. No orthopnea. GASTROINTESTINAL: Positive for abdominal pain and weakness. No nausea or vomiting. No diarrhea or constipation. No hematemesis. No hematochezia. GENITOURINARY: No urgency. No frequency. No dysuria. No hematuria. No obstructive symptoms. No discharge. No pain. No significant abnormal bleeding. MUSCULOSKELETAL: No musculoskeletal pain. No joint swelling. No arthritis. NEUROLOGICAL: No headache. No neck pain. No syncope. No seizures. No dizziness. PSYCHIATRIC: Not anxious. No depression. No suicidal thoughts. No homicidal thoughts. SKIN: No rash. No lesions. No wounds. ENDOCRINE: No unexplained weight loss. No weight gain. HEMATOLOGIC/LYMPHATIC: No anemia. No purpura. No petechiae. No prolonged or excessive bleeding. No palpable lymph nodes. PERSONAL/FAMILY/SOCIAL HISTORY: She is a nonsmoker. She is . She lives by herself. Her daughter is very involved in her care. MEDICATIONS: (HOME) Lisinopril 5 mg p.o. daily Klor-Con 10 mEq p.o. daily Fish Oil 300 mg p.o. daily Atorvastatin 10 mg p.o. daily Allopurinol 100 mg p.o. b.i.d. Travatan Z one drop both eyes bedtime Ferrous Sulfate 324 mg p.o. t.i.d. Namenda 10 mg p.o. bedtime Cholecalciferol 1,000 unit p.o. daily Bystolic 10 mg p.o. daily Zoledronic [id number] (Reclast 5 mg/100 mL solution) 5 mg IV as directed Ranitidine 150 mg p.o. b.i.d. Xarelto 20 mg p.o. daily Metolazone 2.5 mg p.o. every other day ALLERGIES: NKDA PHYSICAL EXAMINATION: VITAL SIGNS: Temperature 98.6, heart rate 87, respirations 18, blood pressure 126/77, pulse ox 98%. HEENT: Head normocephalic, atraumatic. Eyes: Extraocular muscles are intact. Pupils are equal, round and reactive to light and accommodation. Ears: No lesions. Nose appeared normal. Throat: No exudate or erythema. NECK: Supple. No JVD, no carotid bruit. No lymphadenopathy or thyromegaly. LUNGS: Clear to auscultation. Percussion note normal. Chest symmetrical. HEART: S1, S2, no S3. Grade II/ systolic murmur. No cyanosis or clubbing. No ascites. Pulses: Dorsalis pedis and posterior tibial pulses +1 to +2 bilaterally. ABDOMEN: Soft. Diffuse left upper and lower quadrant tenderness. Bowel sounds active. No CVA tenderness. No mass felt. EXTREMITIES: No edema. Full range of motion of all extremities, equal. NEUROLOGIC: No focal deficit. Cranial nerves II through XII are grossly intact. No headache, no double vision or headache. SKIN: Not dry. Intact. Turgor - normal. LYMPHATIC: No palpable lymph nodes/no lymphedema. MUSCULOSKELETAL: Normal joints with no swelling. Muscle tone is normal. LABS: White count 18.5, hemoglobin 10.7, hematocrit 31.4. platelets 228. Sodium 135, potassium 3.5, BUN 28, creatinine 1.38, glucose 181, AST 27, ALT 22. Amylase 59, lipase 14.8. CT of the abdomen and pelvis without contrast shows sigmoid diverticulitis with possible associated colitis. There was a region of focal fluid in the al-sigmoid region which represents possible developing abscess. She has a 2.4 cm mesenteric mass indeterminate, a large stable L4-L5 nerve sheath tumor, nephrolithiasis. No hydronephrosis. ASSESSMENT: 1. ACUTE DIVERTICULITIS 2. DEHYDRATION 3. ANEMIA 4. AORTIC STENOSIS PLAN: 1. We will admit. 2. Routine telemetry orders. 3. CBC, CMP daily. 4. NS @ 75 cc/hr IV. 5. Zofran 4 mg IV q.6hr p.r.n. for nausea. 6. The patient is to have Zosyn IV q.6hr along with Flagyl 500 mg IV q.6hr which has been ordered by Dr. Oneal. 7. The patient is on a clear liquid diet. 8. Continue all home medications. 9. Will follow closely. TIME SPENT: More than 70 minutes. MTDD
--- NOTE | 2019-05-28 14:14 | PN ---
DATE OF SERVICE: 05/27/19 SUBJECTIVE: The patient was seen and examined with Nurse Practitioner. Diverticulitis seems to be resolving. The patient has another issue involving the mesenteric wall showing some mass. We will repeat the CAT scan in three to four days. Otherwise condition is stable. Has Systolic murmur with aortic stenosis. TIME SPENT: More than 30 minutes. Plan and coordination of the patient's care discussed in the presence of nurse. KEENA
[2019-05-28] MEDS: NAMENDA PO SCH (20:59)
[2019-05-28] MEDS: TRAVATAN Z EACHEYE SCH (21:04)
[2019-05-29] MEDS: FLAGYL 500 MG/100 ML 500 MG/100 ML BAG IV SCH ×5 (01:25→23:18)
[2019-05-29] MEDS: PROTONIX PO SCH ×2 (05:43→17:21)
[2019-05-29] MEDS: ZOSYN 2.25 GM 2.25 GM in SODIUM CHLORIDE 50 ML IV SCH ×3 (06:59→18:52)
[2019-05-29] MEDS: FERROUS SULFATE PO SCH ×3 (08:25→20:08)
[2019-05-29] MEDS: LIPITOR PO SCH (08:25)
[2019-05-29] MEDS: ZESTRIL PO SCH (08:25)
[2019-05-29] MEDS: ZYLOPRIM PO SCH ×2 (08:25→20:08)
[2019-05-29] MEDS: K-DUR PO SCH (08:25)
[2019-05-29] MEDS: XARELTO PO SCH (08:27)
--- NOTE | 2019-05-29 09:19 | CT ---
EXAM: CT abdomen pelvis with and without contrast HISTORY: Acute diverticulitis COMPARISON: 05/26/2019 TECHNIQUE: CT abdomen pelvis performed with and without intravenous contrast. Coronal and sagittal reformatted images obtained. FINDINGS: Mild bibasilar atelectasis. No acute abnormalities of the bones. Degenerative change in the spine. Osteoarthritis of the hips. Heart normal in size. Granulomatous calcification in the li ilsa. Liver otherwise unremarkable. Gallbladder unremarkable. Pancreas unremarkable. Spleen unrema rkable. Adrenals unremarkable. 1 cm calculus left kidney. Several low-density left renal lesions m easure likely represent cysts, though measure slightly greater than simple fluid attenuation. No hyd ronephrosis. Aorta normal in caliber. Moderate atherosclerosis. Patient status post hysterectomy. Redemonstration of a large mass containing calcifications associated the right psoas muscle extendin g into the L4-L5 neural foramen on the right measuring 6.4 x 3.6 cm. Redemonstration of a mesenteric mass measuring 2.4 x 2.1 cm, located inferior to the pancreatic head with suggestion of smaller maru cent nodules. Bladder only mildly distended and poorly evaluated. Small hiatal hernia. No dilated loops small bowel. Appendix appears normal. Colonic diverticulosis. Inflammation and wall thickeni ng centered in the sigmoid colon that is mildly improved from prior examination. Fluid collection in the al-sigmoid region measuring 1.2 x 0.5 cm, grossly unchanged, extending to a loop of small carie l in the central pelvis. There is wall thickening/involvement of this loop of small bowel without fr ank fistula. No free air. IMPRESSION: 1. Sigmoid diverticulitis with possible associated colitis. Redemonstration of a 1.2 cm focal fluid in the al-sigmoid region, likely a small abscess. This extends to a loop of small bowel in the pe lvis. There is secondary inflammation/involvement of this loop of small bowel without mere fistula. Overall, inflammation is mildly decreased from prior examination. 2. 4 cm mesenteric mass with suggestion of associated small nodules, indeterminate and may represent a neoplasm. 3. 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 4. Left nephrolithiasis. No hydronephrosis. 5. Low-density left renal lesions may represent cysts, though measures slightly greater than simple fluid attenuation. Recommend correlation with ultrasound
--- NOTE | 2019-05-29 11:24 | PN ---
DATE OF SERVICE: 05/26/19 SUBJECTIVE: The patient came to the emergency room today complaining of abdominal pain that started on Monday that is 2-3 days prior to coming to the emergency room. The patient was having pain in the left lower quadrant. The patient's doesn't have bowel movement for past few days. Her appetite has gone down. Still has she kept on eating. There is no nausea, no vomiting, no fever or chills. REVIEW OF SYSTEMS: CONSTITUTIONAL: No night sweats. No fatigue, malaise, lethargy. No fever or chills. HEENT: Eyes: No visual changes. No eye pain. No eye discharge. ENT: No runny nose. No epistaxis. No sinus pain. No sore throat. No odynophagia. No congestion. RESPIRATORY: No cough, no congestion. No hemoptysis. No shortness of breath. CARDIOVASCULAR: No angina symptoms. No CHF symptoms. No atypical chest pain for CAD. No palpitations. No PND. No orthopnea. GASTROINTESTINAL: No abdominal pain. No nausea or vomiting. No diarrhea or constipation. No hematemesis. No hematochezia. GENITOURINARY: No urgency. No frequency. No dysuria. No hematuria. No obstructive symptoms. No discharge. No pain. No significant abnormal bleeding. MUSCULOSKELETAL: No musculoskeletal pain; no joint swelling. NEUROLOGICAL: No headache. No neck pain. No syncope. No seizures. No dizziness. PSYCHIATRIC: Not anxious. No depression. No suicidal thoughts. No homicidal thoughts. SKIN: No rash. No lesions. No wounds. ENDOCRINE: No unexplained weight loss. No weight gain. HEMATOLOGIC/LYMPHATIC: No anemia. No purpura. No petechiae. No prolonged or excessive bleeding. No palpable lymph nodes. PHYSICAL EXAMINATION: HEENT: Head normocephalic, atraumatic. Eyes: Extraocular muscles are intact. Pupils are equal, round and reactive to light and accommodation. Ears: No lesions. Nose appeared normal. Throat: No exudate or erythema. NECK: Supple. No JVD, no carotid bruit. No lymphadenopathy or thyromegaly. LUNGS: Decreased breath sounds but clear to auscultation. Percussion note normal. Chest symmetrical. HEART: S1, S2, no S3. No murmurs. No cyanosis or clubbing. No ascites. Pulses: Dorsalis pedis and posterior tibial pulses +1 to +2 bilaterally. ABDOMEN: Soft. Questionable tenderness in the left lower quadrant. Bowel sounds active. No CVA tenderness. No mass felt. EXTREMITIES: No edema. Full range of motion of all extremities, equal. NEUROLOGIC: No focal deficit. Cranial nerves II through XII are grossly intact. No headache, no double vision or headache. SKIN: Not dry. Intact. Turgor - normal. LYMPHATIC: No palpable lymph nodes/no lymphedema. MUSCULOSKELETAL: Normal joints with no swelling. Muscle tone is normal. LABS: CT scan of the abdomen showed sigmoid diverticulitis PLAN: 1. Give IV fluids 2. IV antibiotics 3. Full liquids 4. Monitor CBC and CMP The patient was seen and examined in the emergency room. Family was present at that time. TIME SPENT: More than 30 minutes. Plan and coordination of the patient's care discussed in the presence of nurse. KEENA
[2019-05-29] MEDS: TRAVATAN Z EACHEYE SCH (20:08)
[2019-05-29] MEDS: NAMENDA PO SCH (20:08)
[2019-05-30] MEDS: ZOSYN 2.25 GM 2.25 GM in SODIUM CHLORIDE 50 ML IV SCH ×5 (00:31→23:34)
[2019-05-30] MEDS: FLAGYL 500 MG/100 ML 500 MG/100 ML BAG IV SCH ×3 (05:09→17:01)
[2019-05-30] MEDS: PROTONIX PO SCH ×2 (06:02→16:57)
[2019-05-30] MEDS: LIPITOR PO SCH (09:48)
[2019-05-30] MEDS: FERROUS SULFATE PO SCH ×3 (09:48→20:16)
[2019-05-30] MEDS: ZESTRIL PO SCH (09:49)
[2019-05-30] MEDS: ZYLOPRIM PO SCH ×2 (09:49→20:16)
[2019-05-30] MEDS: K-DUR PO SCH (09:49)
[2019-05-30] MEDS: XARELTO PO SCH (09:55)
--- NOTE | 2019-05-30 10:01 | PCM.PROG ---
Attending Provider: ATTENDING PROVIDER: Dr. JEN ROLLE This patient is seen with Parris Uriarte, Nurse Practitioner. DATE OF SERVICE: 05/30/19 SUBJECTIVE: This 88 year old AA/BLACK F was hospitalized 05/26/19. The patient is still having diarrhea although improved. No abdominal pain or tenderness. CAT scan showed slightly improvement in diverticulitis along with questionable 4cm mass. The patient has not had colonoscopy in some time as she had refused a repeat. REVIEW OF SYSTEMS: CONSTITUTIONAL: No night sweats. No fatigue, malaise, lethargy. No fever or chills. Weakness. HEENT: Eyes: No visual changes. No eye pain. No eye discharge. ENT: No runny nose. No epistaxis. No sinus pain. No odynophagia. No congestion. RESPIRATORY: No cough, no congestion. No hemoptysis. No shortness of breath. CARDIOVASCULAR: No angina symptoms. No CHF symptoms. No atypical chest pain for CAD. No palpitations. No orthopnea.. GASTROINTESTINAL: No abdominal pain. No nausea or vomiting. Diarrhea. No hematemesis. No hematochezia. GENITOURINARY: No urgency. No frequency. No dysuria. No hematuria. No obstructive symptoms. No discharge. No pain. No significant abnormal bleeding. MUSCULOSKELETAL: No musculoskeletal pain; no joint swelling. NEUROLOGICAL: Awake, alert, oriented to time, place and person. No headache. No neck pain. No syncope. No seizures. No dizziness. PSYCHIATRIC: Not anxious. No depression. No suicidal thoughts. No homicidal thoughts. SKIN: No rash. No lesions. No wounds. ENDOCRINE: No unexplained weight loss. No weight gain. HEMATOLOGIC/LYMPHATIC: No anemia. No purpura. No petechiae. No prolonged or excessive bleeding. No palpable lymph nodes. PHYSICAL EXAMINATION: GENERAL: The patient is awake, alert and oriented, lying in bed in no distress. VITAL SIGNS: Temperature 98.5 F, Pulse 81, Respiratory Rate 16, BP 110/71, Pulse Ox 99% HEENT: Head normocephalic, atraumatic. Eyes: Extraocular muscles are intact. Pupils are equal, round and reactive to light and accommodation. Ears: No lesions. Nose appeared normal. Throat: No exudate or erythema. NECK: Supple. No JVD, no carotid bruit. No lymphadenopathy or thyromegaly. LUNGS: Diminished breath sounds. Clear to auscultation. Percussion note normal. Chest symmetrical. HEART: S1, S2, no S3. Grade II/ systolic murmurs. No cyanosis or clubbing. No ascites. Pulses: Dorsalis pedis and posterior tibial pulses +1 to +2 both sides. ABDOMEN: Soft. Non-tender. Bowel sounds active. No CVA tenderness. No mass felt. EXTREMITIES: No edema. Full range of motion of all extremities, equal. NEUROLOGIC: No focal deficit. Cranial nerves II through XII are grossly intact. No headache, no double vision or headache. SKIN: Not dry. Intact. Turgor-normal. LYMPHATIC: No palpable lymph nodes/no lymphedema. MUSCULOSKELETAL: Normal joints with no swelling. Muscle tone is normal. LAB REVIEW: 05/30/19 07:10 05/29/19 04:15 05/30/19 07:10: WBC 8.00, RBC 2.92 L, Hgb 9.2 L, Hct 27.2 L, MCV 93.2, MCH 31.5 H, MCHC 33.8, RDW Coeff of Alex 13.0, Plt Count 281, Immature Gran % (Auto) 0.5, Neut % (Auto) 65.7, Lymph % (Auto) 18.4, [place] % (Auto) 12.6 H, Eos % (Auto) 2.4, Baso % (Auto) 0.4, Immature Gran # (Auto) 0.0, Neut # (Auto) 5.3, Lymph # (Auto) 1.5, [place] # (Auto) 1.0, Eos # (Auto) 0.2, Baso # (Auto) 0.0 ASSESSMENT: Please see below. 1. Acute sigmoid diverticulitis possible abscess, questionable mass versus infection 2. Anemia 3. Chronic kidney disease 4. Aortic stenosis 5. 4cm colon mass questionable per CT PLAN: 1. Continue IV antibiotics 2. After discussion with the patient she would like to speak to her daughters as far as a plan of action regarding the mass in a way of GI referral and colonoscopy. Plan and coordination of the patient's care discussed in the presence of Supply Chain Business Analyst and nurse. SCRIBED BY: EVELYN SNYDER Iron Carrier scribed while in presence of service performed by Dr. Rolle/Parris Uriarte APRN on 05/30/19 ([id number])
--- NOTE | 2019-05-30 13:47 | PN ---
DATE OF SERVICE: 05/29/19 SUBJECTIVE: 88 year old white female hospitalized with acute diverticulitis. The patient's condition is improving. The patient is feeling somewhat better. The patient's CT scan repeat showed still 4cm mass in the mesenteric, diverticulitis still persists with possibility of small abscess. We will continue Zosyn and Flagyl. Bystolic has been held because of hypotension. The patient's appetite is practically normal. Bowel movement are OK. REVIEW OF SYSTEMS: CONSTITUTIONAL: No night sweats. No fatigue, malaise, lethargy. No fever or chills. HEENT: Eyes: No visual changes. No eye pain. No eye discharge. ENT: No runny nose. No epistaxis. No sinus pain. No sore throat. No odynophagia. No congestion. RESPIRATORY: No cough, no congestion. No hemoptysis. No shortness of breath. CARDIOVASCULAR: No angina symptoms. No CHF symptoms. No atypical chest pain for CAD. No palpitations. No PND. No orthopnea. GASTROINTESTINAL: No abdominal pain. No nausea or vomiting. No diarrhea or constipation. No hematemesis. No hematochezia. GENITOURINARY: No urgency. No frequency. No dysuria. No hematuria. No obstructive symptoms. No discharge. No pain. No significant abnormal bleeding. MUSCULOSKELETAL: No musculoskeletal pain; no joint swelling. NEUROLOGICAL: No headache. No neck pain. No syncope. No seizures. No dizziness. PSYCHIATRIC: Not anxious. No depression. No suicidal thoughts. No homicidal thoughts. SKIN: No rash. No lesions. No wounds. ENDOCRINE: No unexplained weight loss. No weight gain. HEMATOLOGIC/LYMPHATIC: No anemia. No purpura. No petechiae. No prolonged or excessive bleeding. No palpable lymph nodes. PHYSICAL EXAMINATION: VITAL SIGNS: Temperature 98.5, pulse 70, respiratory rate 16, blood pressure 124/74 and pulse ox 97% HEENT: Head normocephalic, atraumatic. Eyes: Extraocular muscles are intact. Pupils are equal, round and reactive to light and accommodation. Ears: No lesions. Nose appeared normal. Throat: No exudate or erythema. NECK: Supple. No JVD, no carotid bruit. No lymphadenopathy or thyromegaly. LUNGS: Decreased breath sounds but clear to auscultation. Percussion note normal. Chest symmetrical. HEART: S1, S2, no S3. No murmurs. No cyanosis or clubbing. No ascites. Pulses: Dorsalis pedis and posterior tibial pulses +1 to +2 bilaterally. ABDOMEN: Soft. Nontender. Bowel sounds active. No CVA tenderness. No mass felt. EXTREMITIES: No edema. Full range of motion of all extremities, equal. NEUROLOGIC: No focal deficit. Cranial nerves II through XII are grossly intact. No headache, no double vision or headache. SKIN: Not dry. Intact. Turgor - normal. LYMPHATIC: No palpable lymph nodes/no lymphedema. MUSCULOSKELETAL: Normal joints with no swelling. Muscle tone is normal. LABS: Hgb 9.1, hct 27, WBC 7,900 normal differential, creatinine 1.2, BUN 16, potassium 3.7 ASSESSMENT: 1. Acute diverticulitis, clinically seems to be resolving. The patient has several findings on CT scan like an abscess which will require further treatment with IV antibiotics. Even though it is a small abscess with no clinical evidence with nontender abdomen and the patient is practically afebrile. 4cm in the mesenteric going to be difficult to evaluate, will refer the patient to oncologist. TIME SPENT: More than 30 minutes. Plan and coordination of the patient's care discussed in the presence of nurse. KEENA
--- NOTE | 2019-05-30 13:59 | PN ---
DATE OF SERVICE: 05/28/19 SUBJECTIVE: The patient was seen and examined this morning with the Nurse Practitioner. The patient's condition is improving. Diverticulitis seems to be resolving. TIME SPENT: More than 30 minutes. Plan and coordination of the patient's care discussed in the presence of nurse. KEENA
[2019-05-30] MEDS ORDERED: DILAUDID 1 MG/ML SYRINGE IVP PRN (18:29)
[2019-05-30] MEDS: TRAVATAN Z EACHEYE SCH (20:16)
[2019-05-30] MEDS: NAMENDA PO SCH (20:16)
[2019-05-31] MEDS: TORADOL IVP SCH ×5 (00:43→23:11)
[2019-05-31] MEDS: FLAGYL 500 MG/100 ML 500 MG/100 ML BAG IV SCH ×4 (00:43→17:02)
[2019-05-31] MEDS: PROTONIX PO SCH ×2 (05:45→16:53)
[2019-05-31] MEDS: ZOSYN 2.25 GM 2.25 GM in SODIUM CHLORIDE 50 ML IV SCH ×4 (06:15→23:11)
--- NOTE | 2019-05-31 08:39 | PCM.PROG ---
Attending Provider: ATTENDING PROVIDER: Dr. JEN RODRÍGUEZ This patient is seen with Parris Uriarte, Nurse Practitioner. DATE OF SERVICE: 05/31/19 SUBJECTIVE: This 88 year old AA/BLACK F was hospitalized 05/26/19. The patient is resting comfortably. Her diarrhea has improved. Pain has also improved. She still has some discomfort. REVIEW OF SYSTEMS: CONSTITUTIONAL: No night sweats. No fatigue, malaise, lethargy. No fever or chills. Weakness. HEENT: Eyes: No visual changes. No eye pain. No eye discharge. ENT: No runny nose. No epistaxis. No sinus pain. No odynophagia. No congestion. RESPIRATORY: No cough, no congestion. No hemoptysis. No shortness of breath. CARDIOVASCULAR: No angina symptoms. No CHF symptoms. No atypical chest pain for CAD. No palpitations. No orthopnea.. GASTROINTESTINAL: Abdominal pain. No nausea or vomiting. No diarrhea or constipation. No hematemesis. No hematochezia. GENITOURINARY: No urgency. No frequency. No dysuria. No hematuria. No obstruc tive symptoms. No discharge. No pain. No significant abnormal bleeding. MUSCULOSKELETAL: No musculoskeletal pain; no joint swelling. NEUROLOGICAL: Awake, alert, oriented to time, place and person. No headache. No neck pain. No syncope. No seizures. No dizziness. PSYCHIATRIC: Not anxious. No depression. No suicidal thoughts. No homicidal thoughts. SKIN: No rash. No lesions. No wounds. ENDOCRINE: No unexplained weight loss. No weight gain. HEMATOLOGIC/LYMPHATIC: No anemia. No purpura. No petechiae. No prolonged or excessive bleeding. No palpable lymph nodes. PHYSICAL EXAMINATION: GENERAL: The patient is awake, alert and oriented, lying in bed in no distress. VITAL SIGNS: Temperature 98.6 F, Pulse 76, Respiratory Rate 16, BP 103/62, Pulse Ox 97% HEENT: Head normocephalic, atraumatic. Eyes: Extraocular muscles are intact. Pupils are equal, round and reactive to light and accommodation. Ears: No lesions. Nose appeared normal. Throat: No exudate or erythema. NECK: Supple. No JVD, no carotid bruit. No lymphadenopathy or thyromegaly. LUNGS: Diminished breath sounds. Clear to auscultation. Percussion note normal. Chest symmetrical. HEART: S1, S2, no S3. Grade II/ systolic murmurs. No cyanosis or clubbing. No ascites. Pulses: Dorsalis pedis and posterior tibial pulses +1 to +2 both sides. ABDOMEN: Soft. Non-tender. Bowel sounds active. No CVA tenderness. No mass felt. Improved left lower quadrant pain. EXTREMITIES: No edema. Full range of motion of all extremities, equal. NEUROLOGIC: No focal deficit. Cranial nerves II through XII are grossly intact. No headache, no double vision or headache. SKIN: Not dry. Intact. Turgor-normal. LYMPHATIC: No palpable lymph nodes/no lymphedema. MUSCULOSKELETAL: Normal joints with no swelling. Muscle tone is normal. LAB REVIEW: 05/31/19 05:36 05/31/19 05:36 05/31/19 05:36: Sodium 140.2, Potassium 3.82, Chloride 111.3 H, Carbon Dioxide 21.0 L, Anion Gap 11.72, BUN 21.6 H, Creatinine 1.57 H, Estimated GFR (MDRD) 38.00, BUN/Creatinine Ratio 13.75, Glucose 110.0 H, Calcium 9.32, Total Bilirubin 0.51, AST 25.7, ALT 16.1, Alkaline Phosphatase 50.2 L, Total Protein 6.80, Albumin 3.67, Globulin 3.13, Albumin/Globulin Ratio 1.17 05/31/19 05:36: WBC 11.29 H, RBC 3.28 L, Hgb 10.2 L, Hct 31.2 L, MCV 95.1, MCH 31.1 H, MCHC 32.7, RDW Coeff of Alex 13.2, Plt Count 306, Immature Gran % (Auto) 0.9, Neut % (Auto) 63.7, Lymph % (Auto) 20.1, Power % (Auto) 12.1 H, Eos % (Auto) 2.8, Baso % (Auto) 0.4, Immature Gran # (Auto) 0.1, Neut # (Auto) 7.2 H, Lymph # (Auto) 2.3, Power # (Auto) 1.4, Eos # (Auto) 0.3, Baso # (Auto) 0.0 05/30/19 07:10: Sodium 135.6, Potassium 3.59, Chloride 109.0 H, Carbon Dioxide 20.6 L, Anion Gap 9.59, BUN 15.9, Creatinine 1.21, Estimated GFR (MDRD) 51.00, BUN/Creatinine Ratio 13.14, Glucose 106.6 H, Calcium 9.26, Total Bilirubin 0.59, AST 24.6, ALT 13.9, Alkaline Phosphatase 50.1 L, Total Protein 6.26 L, Albumin 3.33 L, Globulin 2.93, Albumin/Globulin Ratio 1.13 ASSESSMENT: Please see below. 1. Acute sigmoid diverticulitis possible abscess, questionable mass versus infection 2. Anemia 3. Chronic kidney disease 4. Aortic stenosis 5. 4cm colon mass questionable per CT PLAN: 1. Continue IV antibiotics 2. Appointment with Dr. Velarde next Monday 3. Appointment with GI doctor on June 19 Plan and coordination of the patient's care discussed in the presence of Service Mechanic and nurse. SCRIBED BY: EVELYN SNYDER It Operations Manager scribed while in presence of service performed by Dr. Rodríguez/Parris Uriarte APRN on 05/31/19 ([id number])
[2019-05-31] MEDS: LIPITOR PO SCH (09:43)
[2019-05-31] MEDS: FERROUS SULFATE PO SCH ×3 (09:43→20:21)
[2019-05-31] MEDS: K-DUR PO SCH (09:43)
[2019-05-31] MEDS: ZYLOPRIM PO SCH ×2 (09:44→20:21)
[2019-05-31] MEDS: XARELTO PO SCH (09:44)
[2019-05-31] MEDS: ZESTRIL PO SCH (09:44)
--- NOTE | 2019-05-31 13:29 | PN ---
DATE OF SERVICE: 05/30/19 SUBJECTIVE: The patient was seen and examined with Nurse Practitioner. The patient is being treated with acute diverticulitis. The patient still has some symptoms. The patient is going to continue to be treated. Maybe discharged in the next couple of days. TIME SPENT: More than 30 minutes. Plan and coordination of the patient's care discussed in the presence of nurse. KEENA
[2019-05-31] MEDS: NAMENDA PO SCH (20:21)
[2019-05-31] MEDS: TRAVATAN Z EACHEYE SCH (20:21)
[2019-06-01] MEDS: FLAGYL 500 MG/100 ML 500 MG/100 ML BAG IV SCH ×5 (00:26→23:20)
[2019-06-01] MEDS: PROTONIX PO SCH ×2 (05:53→17:03)
[2019-06-01] MEDS: TORADOL IVP SCH ×4 (05:54→23:20)
[2019-06-01] MEDS: ZOSYN 2.25 GM 2.25 GM in SODIUM CHLORIDE 50 ML IV SCH ×3 (06:27→18:13)
[2019-06-01] MEDS: FERROUS SULFATE PO SCH ×3 (09:05→20:06)
[2019-06-01] MEDS: XARELTO PO SCH (09:05)
[2019-06-01] MEDS: LIPITOR PO SCH (09:05)
[2019-06-01] MEDS: K-DUR PO SCH (09:05)
[2019-06-01] MEDS: ZYLOPRIM PO SCH ×2 (09:06→20:06)
[2019-06-01] MEDS: ZESTRIL PO SCH (09:06)
[2019-06-01] MEDS: NAMENDA PO SCH (20:06)
[2019-06-01] MEDS: TRAVATAN Z EACHEYE SCH (20:09)
[2019-06-02] MEDS: ZOSYN 2.25 GM 2.25 GM in SODIUM CHLORIDE 50 ML IV SCH ×4 (00:09→19:40)
[2019-06-02] MEDS: FLAGYL 500 MG/100 ML 500 MG/100 ML BAG IV SCH ×4 (05:15→23:29)
[2019-06-02] MEDS: TORADOL IVP SCH ×4 (05:15→23:37)
[2019-06-02] MEDS: PROTONIX PO SCH ×2 (06:28→17:05)
[2019-06-02] MEDS: ZESTRIL PO SCH (08:29)
[2019-06-02] MEDS: LIPITOR PO SCH (08:30)
[2019-06-02] MEDS: FERROUS SULFATE PO SCH ×3 (08:31→20:13)
[2019-06-02] MEDS: XARELTO PO SCH (08:35)
[2019-06-02] MEDS: K-DUR PO SCH (08:35)
[2019-06-02] MEDS: ZYLOPRIM PO SCH ×2 (08:35→20:13)
[2019-06-02] MEDS: TRAVATAN Z EACHEYE SCH (20:14)
[2019-06-02] MEDS: NAMENDA PO SCH (20:14)
[2019-06-03] MEDS: ZOSYN 2.25 GM 2.25 GM in SODIUM CHLORIDE 50 ML IV SCH ×2 (00:37→06:19)
[2019-06-03] MEDS: TORADOL IVP SCH (05:07)
[2019-06-03] MEDS: FLAGYL 500 MG/100 ML 500 MG/100 ML BAG IV SCH (05:07)
[2019-06-03 05:11] VITALS: BP 128/73; TEMP 98.4
[2019-06-03] MEDS: PROTONIX PO SCH (07:29)
[2019-06-03] MEDS: XARELTO PO SCH (08:58)
[2019-06-03] MEDS: ZESTRIL PO SCH (08:58)
[2019-06-03] MEDS: FERROUS SULFATE PO SCH (08:59)
[2019-06-03] MEDS: ZYLOPRIM PO SCH (08:59)
[2019-06-03] MEDS: K-DUR PO SCH (08:59)
[2019-06-03] MEDS: LIPITOR PO SCH (09:00)
--- NOTE | 2019-06-03 11:08 | CM.DICTOOL ---
ADMISSION: 05/26/19 13:08 DISCHARGE: JUNE 03, 2019 DATE OF SERVICE: 06/03/19 FINAL DIAGNOSIS ACUTE SIGMOID DIVERTICULITIS, POSSIBLE ABSCESS ANEMIA HYPERTENSION DYSLIPIDEMIA ARTHRITIS GERD LEFT NEPHROLITHIASIS PER CT 4.0 CM MESENTERIC MASS PER CT 05/29/2019 LAST ECHOCARDIOGRAM 03/2018: CALCIFIC AORTIC STENOSIS MILD MITRAL STENOSIS LVH WITH ENLARGED LEFT ATRIAL CAVITY LAST VITALS Temp Pulse Resp BP Pulse Ox 98.4 F 94 H 19 128/73 100 06/03/19 05:07 06/03/19 05:07 06/03/19 07:36 06/03/19 05:07 06/03/19 05:07 TAKE THESE MEDICATIONS AT HOME Allopurinol (Zyloprim) 100 mg PO BID [facility] Last Admin: 06/03/19 08:59 Dose: 100 mg Documented by: Atorvastatin Calcium (Lipitor) 10 mg PO DAILY [facility] Last Admin: 06/03/19 09:00 Dose: 10 mg Documented by: Ferrous Sulfate (Ferrous Sulfate) 324 mg PO TID [facility] Last Admin: 06/03/19 08:59 Dose: 324 mg Documented by: Cholecalciferol (Vitamin D3) 1, 000 units PO DAILY Last Admin: Lisinopril (Zestril) 5 mg PO DAILY [facility] Last Admin: 06/03/19 08:58 Dose: 5 mg Documented by: Memantine (Namenda) 10 mg PO BEDTIME [facility] Last Admin: 06/02/19 20:14 Dose: 10 mg Documented by: Metolazone (Zaroxolyn) 2.5 mg PO EVERY OTHER DAY [facility] Nebivolol (Bystolic) 5 mg PO DAILY [facility] Last Admin: 05/27/19 10:31 Dose: Not Given Documented by: Pantoprazole Sodium (Protonix) 40 mg PO BIDAC [facility] Last Admin: 06/03/19 07:29 Dose: 40 mg Documented by: Potassium Chloride (K-Dur) 10 meq PO DAILYWM [facility] Last Admin: 06/03/19 08:59 Dose: 20 meq Documented by: Fish Oil 300 mg PO DAILY Last Admin: Rivaroxaban (Xarelto) 15 mg PO DAILY [facility] Last Admin: 06/03/19 08:58 Dose: 15 mg Documented by: : Travoprost (Travatan Z) 1 drop EACHEYE BEDTIME [facility] Last Admin: 06/02/19 20:14 Dose: 1 drop Documented by: Reclast 5mg/100 ml IV as Directed Last Admin: ALLERGIES No Known Allergies Allergy (Verified 03/31/18 19:11) DISCONTINUED MEDICATIONS ZANTAC 150 MG BID MEDICATION CHANGES BYSTOLIC DECREASED TO 5 MG DAILY ZAROXOLYN 2.5 MG CHANGED TO 2 TIMES PER WEEK XARELTO DECREASED TO 15 MG DAILY NEW PRESCRIPTIONS: FLAGYL 500 MG TID FOR 5 DAYS PROTONIX 40 MG BID FOR 30 DAYS ZAROXOLYN 2.5 MG TWICE WEEKLY BYSTOLIC 5 MG DAILY XARELTO 15 MG DAILY SMOKING: NOT APPLICABLE DISEASE SPECIFIC EDUCATION: DIVERTICULOSIS/DIVERTICULITIS DIET FOR DIVERTICULOSIS NEW MEDICATIONS APPOINTMENTS LAB REVIEW: 06/03/19 04:30 06/03/19 04:30 06/03/19 04:30: Sodium 141.2, Potassium 3.74, Chloride 115.9 H, Carbon Dioxide 18.4 L, Anion Gap 10.64, BUN 23.0 H, Creatinine 1.40 H, Estimated GFR (MDRD) 43.00, BUN/Creatinine Ratio 16.42, Glucose 102.3, Calcium 8.57, Total Bilirubin 0.40, AST 24.0, ALT 13.4, Alkaline Phosphatase 45.5 L, Total Protein 5.66 L, Albumin 2.90 L, Globulin 2.76, Albumin/Globulin Ratio 1.05 06/03/19 04:30: WBC 10.19, RBC 2.60 L, Hgb 8.1 L, Hct 24.9 L, MCV 95.8, MCH 31.2 H, MCHC 32.5, RDW Coeff of Alex 13.7, Plt Count 321, Immature Gran % (Auto) 1.1, Neut % (Auto) 70.4, Lymph % (Auto) 13.4, [place] % (Auto) 11.0 H, Eos % (Auto) 3.8, Baso % (Auto) 0.3, Immature Gran # (Auto) 0.1, Neut # (Auto) 7.2 H, Lymph # (Auto) 1.4, [place] # (Auto) 1.1, Eos # (Auto) 0.4, Baso # (Auto) 0.0 PLAN: DISCHARGE HOME DIET: SOFT DIET. AVOID SEEDS, NUTS, HUSKS. FOLLOW DIET INFORMATION PROVIDED BY THE DIETITIAN, GABBY DUNBAR ACTIVITY: RESUME ACTIVITY TOLERATED AN APPOINTMENT IS SCHEDULED WITH DR. ROLLE/NIKKI ARIAS APRN ON May AT 1 PM AN APPOINTMENT IS SCHEDULED WITH DR. JIMENEZ, ONCOLOGY/HEMATOLOGY ON May AT 11:30 AM AN APPOINTMENT IS SCHEDULED WITH DR. TORRES/RUPA PHILIP APRN ON June AT 2:45 PM CODE STATUS: FULL CODE MS. LONDONO IS ALERT AND ORIENTED X 3. SHE AND THE DAUGHTER, EDISON ARE AGREEABLE TO DISCHARGE PLANS FOR TODAY. MS. LONDONO LIVES ALONE, BUT HAS TWO DAUGHTERS THAT ARE SUPPORTIVE. MEDICATION CHANGES HAVE BEEN DISCUSSED WITH THE DAUGHTER. SHE IS INDEPENDENT WITH MOST ADL'S, BUT DOES REQUIRE SOME ASSISTANCE WITH BATHING. SHE IS INDEPENDENT WITH FEEDING AND HAS A GOOD APPETITE AT 50-75%. SHE IS CONTINENT OF BLADDER AND BOWEL. SHE IS INDEPENDENT WITH TRANSFERS FROM THE BED TO THE CHAIR AND IS AMBULATORY TO THE BATHROOM WITH SBA OF NURSING AND USE OF ROLLING WALKER. SHE HAS A CANE AND A ROLLATOR AT HOME FOR HER PERSONAL USE. HYDRATION STATUS IMPROVED. SKIN TURGOR IS GOOD. SKIN IS INTACT AND FREE OF DECUBITUS ULCERS. MD NIKKI MIDDLETON APRN
--- NOTE | 2019-06-03 13:33 | PCM.PROG ---
Attending Provider: ATTENDING PROVIDER: Dr. JEN ROLLE This patient is seen with Parris Uriarte, Nurse Practitioner. DATE OF SERVICE: 06/03/19 SUBJECTIVE: This 88 year old AA/BLACK F was hospitalized 05/26/19. The patient is lying in bed resting comfortably. She has been eating well, is up and about. No diarrhea. No fever, no pain. Hemoglobin has been fluctuating day by day. REVIEW OF SYSTEMS: CONSTITUTIONAL: Fatigue. No night sweats. No malaise, lethargy. No fever or chills. HEENT: Eyes: No visual changes. No eye pain. No eye discharge. ENT: No runny nose. No epistaxis. No sinus pain. No odynophagia. No congestion. RESPIRATORY: No cough, no congestion. No hemoptysis. No shortness of breath. CARDIOVASCULAR: No angina symptoms. No CHF symptoms. No atypical chest pain for CAD. No palpitations. No orthopnea.. GASTROINTESTINAL: No abdominal pain. No nausea or vomiting. No diarrhea or constipation. No hematemesis. No hematochezia. GENITOURINARY: No urgency. No frequency. No dysuria. No hematuria. No obstructive symptoms. No discharge. No pain. No significant abnormal bleeding. MUSCULOSKELETAL: No musculoskeletal pain; no joint swelling. NEUROLOGICAL: Awake, alert, oriented to time, place and person. No headache. No neck pain. No syncope. No seizures. No dizziness. PSYCHIATRIC: Not anxious. No depression. No suicidal thoughts. No homicidal thoughts. SKIN: No rash. No lesions. No wounds. ENDOCRINE: No unexplained weight loss. No weight gain. HEMATOLOGIC/LYMPHATIC: No anemia. No purpura. No petechiae. No prolonged or excessive bleeding. No palpable lymph nodes. PHYSICAL EXAMINATION: GENERAL: The patient is awake, alert and oriented, lying/sitting in bed in no distress. VITAL SIGNS: Temperature 98.4 F, Pulse 94, Respiratory Rate 19, BP 128/73, Pulse Ox 100% HEENT: Head normocephalic, atraumatic. Eyes: Extraocular muscles are intact. Pupils are equal, round and reactive to light and accommodation. Ears: No lesions. Nose appeared normal. Throat: No exudate or erythema. NECK: Supple. No JVD, no carotid bruit. No lymphadenopathy or thyromegaly. LUNGS: Clear to auscultation. Percussion note normal. Chest symmetrical. HEART: S1, S2, no S3. Grade II/ murmur. . No cyanosis or clubbing. No ascites. Pulses: Dorsalis pedis and posterior tibial pulses +1 to +2 both sides. ABDOMEN: Soft. Non-tender. Bowel sounds active. No CVA tenderness. No mass felt. EXTREMITIES: No edema. Full range of motion of all extremities, equal. NEUROLOGIC: No focal deficit. Cranial nerves II through XII are grossly intact. No headache, no double vision or headache. SKIN: Not dry. Intact. Turgor-normal. LYMPHATIC: No palpable lymph nodes/no lymphedema. MUSCULOSKELETAL: Normal joints with no swelling. Muscle tone is normal. LAB REVIEW: 06/03/19 04:30 06/03/19 04:30 06/03/19 04:30: Sodium 141.2, Potassium 3.74, Chloride 115.9 H, Carbon Dioxide 18.4 L, Anion Gap 10.64, BUN 23.0 H, Creatinine 1.40 H, Estimated GFR (MDRD) 43.00, BUN/Creatinine Ratio 16.42, Glucose 102.3, Calcium 8.57, Total Bilirubin 0.40, AST 24.0, ALT 13.4, Alkaline Phosphatase 45.5 L, Total Protein 5.66 L, Albumin 2.90 L, Globulin 2.76, Albumin/Globulin Ratio 1.05 06/03/19 04:30: WBC 10.19, RBC 2.60 L, Hgb 8.1 L, Hct 24.9 L, MCV 95.8, MCH 31.2 H, MCHC 32.5, RDW Coeff of Alex 13.7, Plt Count 321, Immature Gran % (Auto) 1.1, Neut % (Auto) 70.4, Lymph % (Auto) 13.4, Garza % (Auto) 11.0 H, Eos % (Auto) 3.8, Baso % (Auto) 0.3, Immature Gran # (Auto) 0.1, Neut # (Auto) 7.2 H, Lymph # (Auto) 1.4, Garza # (Auto) 1.1, Eos # (Auto) 0.4, Baso # (Auto) 0.0 ASSESSMENT: Please see below. 1. Acute sigmoid diverticulitis possible abscess, questionable mass versus infection 2. Anemia 3. Chronic kidney disease 4. Aortic stenosis 5. 4cm colon mass questionable per CT PLAN: 1. Restart Bystolic at 5 mg 2. Restart Bystolic at a decreased dose. 3. Continue Xarelto. 4. Potassium 20 mEq here and 10 mEq once home. 5. Flagyl 500 mg p.o. t.i.d. for 5 days. 6. Protonix 40 mg p.o. b.i.d. times one month. 7. Will discharge home this afternoon. 8. Will see back in the office Monday afternoon. Plan and coordination of the patient's care discussed in the presence of Environmental Management Specialist and nurse. CONDITION: Stable SCRIBED BY: TANESHA PACKER Ad Operations Intern scribed while in presence of service performed by Dr. Rolle/Parris Uriarte APRN on 06/03/19 ([id number])
--- NOTE | 2019-06-03 14:37 | PN ---
DATE OF SERVICE: 05/31/19 SUBJECTIVE: The patient is doing well, progressing well. She was seen and examined with the Nurse Practitioner. Continue Flagyl and Zosyn. Clinically the patient is improving. TIME SPENT: More than 30 minutes. Plan and coordination of the patient's care discussed in the presence of nurse. KEENA
--- NOTE | 2019-06-03 14:47 | PN ---
DATE OF SERVICE: 06/01/19 SUBJECTIVE: 88 year old black female hospitalized with acute diverticulitis. The patient is sitting up and eating. She is feeling a lot better. No abdominal pain. REVIEW OF SYSTEMS: CONSTITUTIONAL: No night sweats. No fatigue, malaise, lethargy. No fever or chills. Weakness. HEENT: Eyes: No visual changes. No eye pain. No eye discharge. ENT: No runny nose. No epistaxis. No sinus pain. No sore throat. No odynophagia. No congestion. RESPIRATORY: No cough, no congestion. No hemoptysis. No shortness of breath. CARDIOVASCULAR: No angina symptoms. No CHF symptoms. No atypical chest pain for CAD. No palpitations. No PND. No orthopnea. GASTROINTESTINAL: No abdominal pain. No nausea or vomiting. No diarrhea or constipation. No hematemesis. No hematochezia. GENITOURINARY: No urgency. No frequency. No dysuria. No hematuria. No obstructive symptoms. No discharge. No pain. No significant abnormal bleeding. MUSCULOSKELETAL: No musculoskeletal pain; no joint swelling. NEUROLOGICAL: No headache. No neck pain. No syncope. No seizures. No dizziness. PSYCHIATRIC: Not anxious. No depression. No suicidal thoughts. No homicidal thoughts. SKIN: No rash. No lesions. No wounds. ENDOCRINE: No unexplained weight loss. No weight gain. HEMATOLOGIC/LYMPHATIC: No anemia. No purpura. No petechiae. No prolonged or excessive bleeding. No palpable lymph nodes. PHYSICAL EXAMINATION: VITAL SIGNS: Temperature 98.5, pulse 80, respiratory rate 18, blood pressure 102/58 and pulse ox 95%. HEENT: Head normocephalic, atraumatic. Eyes: Extraocular muscles are intact. Pupils are equal, round and reactive to light and accommodation. Ears: No lesions. Nose appeared normal. Throat: No exudate or erythema. NECK: Supple. No JVD, no carotid bruit. No lymphadenopathy or thyromegaly. LUNGS: Decreased breath sounds but clear to auscultation. Percussion note normal. Chest symmetrical. HEART: S1, S2, no S3. No murmurs. No cyanosis or clubbing. No ascites. Pulses: Dorsalis pedis and posterior tibial pulses +1 to +2 bilaterally. ABDOMEN: Soft. Nontender. Bowel sounds active. No CVA tenderness. No mass felt. EXTREMITIES: No edema. Full range of motion of all extremities, equal. NEUROLOGIC: No focal deficit. Cranial nerves II through XII are grossly intact. No headache, no double vision or headache. SKIN: Not dry. Intact. Turgor - normal. LYMPHATIC: No palpable lymph nodes/no lymphedema. MUSCULOSKELETAL: Normal joints with no swelling. Muscle tone is normal. LABS: Hgb 8.3, hct 25, WBC 9,900 normal differential, creatinine 1.7, BUN 27, potassium 3.7 ASSESSMENT: 1. Acute diverticulitis, seems to be resolving clinically PLAN: 1. Continue IV antibiotics 2. Piperacillin, Tazobactam that is Zosyn with Flagyl. 3. Discontinue IV fluids 4. Continue the rest of the medications 5. Diet for diverticulosis discussed with the patient. 6. The patient's hgb is borderline we will follow. No evidence of active GI bleed. CONDITION: Stable TIME SPENT: More than 30 minutes. Plan and coordination of the patient's care discussed in the presence of nurse. KEENA
--- NOTE | 2019-06-04 10:29 | DS ---
DATE OF SERVICE: 06/03/19 FINAL DIAGNOSIS: 1. ACUTE SIGMOID DIVERTICULITIS, POSSIBLE ABSCESS 2. ANEMIA 3. HYPERTENSION 4. DYSLIPIDEMIA 5. ARTHRITIS 6. GERD 7. LEFT NEPHROLITHIASIS PER CT 8. 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 AN APPOINTMENT IS SCHEDULED WITH DR. ROLLE/NIKKI ARIAS APRN ON May AT 1 PM. AN APPOINTMENT IS SCHEDULED WITH DR. VELARDE, ONCOLOGY/HEMATOLOGY ON May AT 11:30 AM. AN APPOINTMENT IS SCHEDULED WITH DR. TORRES/RUPA PHILIP APRN ON June AT 2:45 PM. CODE STATUS: FULL CODE TAKE THESE MEDICATIONS AT HOME: Allopurinol (Zyloprim) 100 mg PO BID PILAR Atorvastatin Calcium (Lipitor) 10 mg PO DAILY PILAR Ferrous Sulfate (Ferrous Sulfate) 324 mg PO TID PILAR Cholecalciferol (Vitamin D3) 1, 000 units PO DAILY Lisinopril (Zestril) 5 mg PO DAILY PILAR Memantine (Namenda) 10 mg PO BEDTIME PILAR Metolazone (Zaroxolyn) 2.5 mg PO EVERY OTHER DAY PILAR Nebivolol (Bystolic) 5 mg PO DAILY PILAR Pantoprazole Sodium (Protonix) 40 mg PO BIDAC PILAR Potassium Chloride (K-Dur) 10 meq PO DAILYWM PILAR Fish Oil 300 mg PO DAILY Rivaroxaban (Xarelto) 15 mg PO DAILY PILAR Travoprost (Travatan Z) 1 drop EACHEYE BEDTIME PILAR Reclast 5mg/100 ml IV as Directed ALLERGIES: No Known Allergies Allergy (Verified 03/31/18 19:11) DISCONTINUED MEDICATIONS: ZANTAC 150 MG BID MEDICATION CHANGES: BYSTOLIC DECREASED TO 5 MG DAILY ZAROXOLYN 2.5 MG CHANGED TO 2 TIMES PER WEEK XARELTO DECREASED TO 15 MG DAILY NEW PRESCRIPTIONS: FLAGYL 500 MG TID FOR 5 DAYS PROTONIX 40 MG BID FOR 30 DAYS ZAROXOLYN 2.5 MG TWICE WEEKLY BYSTOLIC 5 MG DAILY XARELTO 15 MG DAILY SMOKING: NOT APPLICABLE DISEASE SPECIFIC EDUCATION: DIVERTICULOSIS/DIVERTICULITIS DIET FOR DIVERTICULOSIS NEW MEDICATIONS APPOINTMENTS DIET: SOFT DIET. AVOID SEEDS, NUTS, HUSKS. FOLLOW DIET INFORMATION PROVIDED BY THE DIETITIAN, GABBY DUNBAR ACTIVITY: RESUME ACTIVITY T[facility]ATED HOSPITAL COURSE: 88 year old female who presented to the emergency room with acute abdominal pain and low grade fever. CAT scan revealed acute sigmoid diverticulitis with possible developing abscess. She had severe diarrhea. Also noted the 2.4cm mesenteric mass which was abnormal finding. She had a history of chronic anemia and calcific aortic stenosis. She was admitted and placed on Zosyn IV along with Flagyl 500mg IV Q 6 hours. Over the course of several days her symptoms, diarrhea and pain slowly improved. Repeat CAT scan was done. The Monday following admission which showed slight improvement in the diverticulitis. She was still having some pain and abscess was still there. Noted the mass to be possibly 4cm. We have arranged for her to have an oncology appointment with Dr. Velarde next Monday on 06/11/19. She has slowly improved. Hgb has fluctuated. Her normal hgb runs around 9. She has fluctuated anywhere from 8.1 to 10.4. She is on Iron three times a day. She was severely tender left lower quadrant on admission and each day this has improved. Finally for the past 48 hours she has had no pain or diarrhea. She is having looser than normal stools but they are not diarrhea. She was NPO for the first two days and we slowly advanced her diet. She is still on a Brat diet. Blood pressure was low and was decreased her Bystolic to 5mg PO daily. Again she was slightly dehydrated. We have held her Zaroxolyn. She does have a history of chronic kidney disease. Due to her kidney function and her age we did decrease Xarelto from 20mg to 15mg. She will continue on this dose. We have explained differential diagnosis for the mass. Again she is to keep her appointment with Dr. Velarde. We will discharge her home with Flagyl 500mg TID for the next 5 days. She is to slowly advance her diet and we will see her back in the office on and repeat her CBC. She is discharged in stable condition. TIME SPENT: More than 60 minutes. MTDD
--- NOTE | 2019-06-04 13:09 | PN ---
DATE OF SERVICE: 06/02/19 SUBJECTIVE: 88 year old black female hospitalized with acute diverticulitis. The patient's condition has improved. She is feeling a lot better. She says that she is feeling sad because the son-in-law is rehospitalized with medical problems. REVIEW OF SYSTEMS: CONSTITUTIONAL: No night sweats. No fatigue, malaise, lethargy. No fever or chills. HEENT: Eyes: No visual changes. No eye pain. No eye discharge. ENT: No runny nose. No epistaxis. No sinus pain. No sore throat. No odynophagia. No congestion. RESPIRATORY: No cough, no congestion. No hemoptysis. No shortness of breath. CARDIOVASCULAR: No angina symptoms. No CHF symptoms. No atypical chest pain for CAD. No palpitations. No PND. No orthopnea. GASTROINTESTINAL: No abdominal pain. No nausea or vomiting. No diarrhea or constipation. No hematemesis. No hematochezia. GENITOURINARY: No urgency. No frequency. No dysuria. No hematuria. No obstructive symptoms. No discharge. No pain. No significant abnormal bleeding. MUSCULOSKELETAL: No musculoskeletal pain; no joint swelling. NEUROLOGICAL: No headache. No neck pain. No syncope. No seizures. No dizziness. PSYCHIATRIC: Not anxious. No depression. No suicidal thoughts. No homicidal thoughts. SKIN: No rash. No lesions. No wounds. ENDOCRINE: No unexplained weight loss. No weight gain. HEMATOLOGIC/LYMPHATIC: No anemia. No purpura. No petechiae. No prolonged or excessive bleeding. No palpable lymph nodes. PHYSICAL EXAMINATION: VITAL SIGNS: Temperature 98.6, pulse 80, respiratory rate 14, blood pressure 110/68 and pulse ox 100% on room air. HEENT: Head normocephalic, atraumatic. Eyes: Extraocular muscles are intact. Pupils are equal, round and reactive to light and accommodation. Ears: No lesions. Nose appeared normal. Throat: No exudate or erythema. NECK: Supple. No JVD, no carotid bruit. No lymphadenopathy or thyromegaly. LUNGS: Decreased breath sounds but clear to auscultation. Percussion note normal. Chest symmetrical. HEART: S1, S2, no S3. No murmurs. No cyanosis or clubbing. No ascites. Pulses: Dorsalis pedis and posterior tibial pulses +1 to +2 bilaterally. ABDOMEN: Soft. Nontender. Bowel sounds active. No CVA tenderness. No mass felt. EXTREMITIES: No edema. Full range of motion of all extremities, equal. NEUROLOGIC: No focal deficit. Cranial nerves II through XII are grossly intact. No headache, no double vision or headache. SKIN: Not dry. Intact. Turgor - normal. LYMPHATIC: No palpable lymph nodes/no lymphedema. MUSCULOSKELETAL: Normal joints with no swelling. Muscle tone is normal. LABS: Hgb 9, hct 27, WBC 11,000 normal differential, creatinine 1.6, BUN 26, potassium 3.8. ASSESSMENT: 1. Acute diverticulitis seems to be resolving PLAN: 1. Continue Zosyn and Flagyl CARDIOVASCULAR STATUS: Stable CONDITION: Improving. TIME SPENT: More than 30 minutes. Plan and coordination of the patient's care discussed in the presence of nurse. KEENA
--- NOTE | 2019-06-06 09:26 | PN ---
DATE OF SERVICE: 06/03/19 SUBJECTIVE: The patient was seen and examined with the Nurse Practitioner. The patient's condition has improved. Her appetite has improved. BM is normal. She is already referred to Oncologist. Medical condition is stable. She was discharged on Flagyl. The patient was seen and examined with the Nurse Practitioner. TIME SPENT: More than 30 minutes. Plan and coordination of the patient's care discussed in the presence of nurse. KEENA
--- NOTE | 2019-06-06 09:27 | PN ---
05/26/19: Level 5 14: Intermediate 15: Intermediate 16: Intermediate 05/30/19: Intermediate 05/31/19: Intermediate 06/01/19: Intermediate 06/02/19: Intermediate 06/03/19: D as in discharge MTDD
== END 2019-06-03 12:45 | disposition home or self-care (01) | DRG 392 ==
LOC: ED 10:46 → MEDSURG A 13:08
PROVIDERS: ADMIT Internal Medicine; ATTEND Internal Medicine
DX: E78.5 Hyperlipidemia, unspecified; M19.90 Unspecified osteoarthritis, unspecified site; K21.9 Gastro-esophageal reflux disease without esophagitis; I10 Essential (primary) hypertension; D64.9 Anemia, unspecified; N20.0 Calculus of kidney; N18.9 Chronic kidney disease, unspecified; R10.9 Unspecified abdominal pain; E86.0 Dehydration; K57.32 Diverticulitis of large intestine without perforation or abscess without bleeding; I35.0 Nonrheumatic aortic (valve) stenosis

== ENCOUNTER 2020-01-08 09:21 | Inpatient (IN) ==
[2020-01-08] MEDS ORDERED: TYLENOL PO STA (09:48)
[2020-01-08] MEDS ORDERED: BOOSTRIX IM ONE (09:48)
--- NOTE | 2020-01-08 09:53 | ED.PDOC ---
General ED Provider: Dr. 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, no loc, no neck pain, hx dementia, poor historian, twisted ankles, mild ache pain, hx gout, no fever Time Seen by Physician: 09:48 Information Source: Patient and Family Primary Care Provider: JEN ROLLE Nursing and Triage Documentation Reviewed and Agree: Yes Does patient meet sepsis criteria?: No System Inflammatory Response Syndrome: Not Applicable Sepsis Protocol: For patient's 13 years and over: Temp is 96.8 and below OR 101 and greater Pulse >90 BPM Resp >20/minute Acutely Altered Mental Status Are patient's symptoms suggestive of a new infection, such as: -Pneumonia -Skin, Soft Tissue -Endocarditis -UTI -Bone, Joint Infection -Implantable Device -Acute Abdominal Infection -Wound Infection -Meningitis -Blood Stream Catheter Infection -Unknown Trauma/Injury Complaint Exam Head Injury Complaint/Exam Location of Pain: Reports Scalp Mechanism of Injury: Reports Trauma 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 Symptoms Are: Still present Initial Severity: Mild Current Severity: Mild Character: Reports Dull Associated Signs and Symptoms: Denies Seizure, Neck pain and Vomiting Loss of Consciousness: None Review of Systems Review Of Systems Constitutional: Denies Fever Eyes: Denies Vision change Ears, Nose, Mouth, Throat: Denies Throat pain Respiratory: Denies Short of air Cardiac: Denies Chest pain GI: Denies Abdominal pain : Denies Dysuria Musculoskeletal: Denies Back pain and Neck pain Skin: Denies Cyanosis Neurological: Reports Cognitive dysfunction and Headache All Other Systems: Other [facility] Medical History (Updated 01/08/20 @ 13:16 by CRISTIANA OLIVAS RN) Arthritis Elevated cholesterol Head injury History of fracture History of fracture of ankle Hypertension Stroke Tumor Wears hearing aid in both ears Family History Mother Hypertension FATHER No problems noted. Other Cancer Social History Smoking and tobacco status: Former smoker Substance use type: does not use History of recent travel: No Female Reproductive History Menstrual Hx Hysterectomy: Yes Hx Tubal Ligation: No Physical Exam Physical Exam Appearance: Reports Well-appearing Ill-appearing: None Pain Distress: None Eyes: Reports VICENTE and EOMI ENT: Reports Oropharynx normal Neck: Supple Respiratory: Reports Airway patent, Breath sounds clear and Breath sounds equal Cardiovascular: Reports RRR GI/: Reports Soft and Nontender Musculoskeletal: Reports Limited ROM (tender bilateral ankles, rom limited by pain, nontender feet and knees and hips, nontender midline spine of neck and back, 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) Skin: Reports Warm (sts and abrasion 2cm occiptal scalp) Neurological: Reports Sensation intact, Cranial nerves intact and Alert Psychiatric: Reports Affect appropriate Interpretation Radiology Interpretation Radiology Interpretation By: Radiologist Radiology Results: No acute changes Exam Interpreted: CT Scan Radiology Interpretation By: Radiologist Radiology Results: No acute changes Exam Interpreted: CXR and Other EKG Interpretation Time of EKG #1: 11:38 Rate: Normal Rhythm: Sinus Ectopy: None Interpretation: no stemi Re-Evaluation Re-Evaluation Time of Re-Evaluation: 11:39 Status: Unchanged Vital Signs Stable: Yes Appearance: NAD Lungs: Clear Skin: Warm and Dry CV: RRR Additional Comments: admit to obs d/w Dr Rolle Critical Care Note Critical Care Note Total Time (mins): 0 Course Course Hematology/Chemistry: 01/08/20 10:05 01/08/20 10:06 Orders, Labs, Meds: Lab Review 01/08/20 01/08/20 01/08/20 10:05 10:05 10:06 WBC 10.42 H RBC 2.97 L Hgb 9.2 L Hct 28.3 L MCV 95.3 MCH 31.0 MCHC 32.5 RDW Coeff of Alex 13.3 Plt Count 258 Immature Gran % (Auto) 0.5 Neut % (Auto) 78.4 H Lymph % (Auto) 9.8 L [place] % (Auto) 10.5 H Eos % (Auto) 0.3 Baso % (Auto) 0.5 Neut # (Auto) 8.2 H Lymph # (Auto) 1.0 [place] # (Auto) 1.1 Eos # (Auto) 0.0 Baso # (Auto) 0.1 Immature Gran # (Auto) 0.1 Sodium 140.0 Potassium 3.59 Chloride 108.9 H Carbon Dioxide 24.5 Anion Gap 10.19 BUN 28.8 H Creatinine 1.26 Estimated GFR (MDRD) 48.00 BUN/Creatinine Ratio 22.85 Glucose 110.1 H Calcium 9.96 Total Bilirubin 0.63 AST 38.8 H ALT 20.3 Alkaline Phosphatase 80.2 Troponin I 0.053 Total Protein 7.01 Albumin 4.00 Globulin 3.01 Albumin/Globulin Ratio 1.32 Orders Category Date Time Status ADMIT OBSERVATION [PLACE PATIENT OBSERVATION] .TO ADMISSION 01/08/20 11:38 Active MEDSURG (MONITORED BED) EKG-(ED ONLY) Stat CARDIO 01/08/20 09:48 Completed TELEMETRY MONITORING TELE CARE 01/08/20 11:40 Active CBC W/ AUTO DIFF Stat LAB 01/08/20 10:05 Completed COMPREHENSIVE METABOLIC PANEL Stat LAB 01/08/20 10:06 Completed TROPONIN I Stat LAB 01/08/20 10:05 Completed URINALYSIS C & S IF INDICATED Stat LAB 01/08/20 09:51 Uncollected Acetaminophen [Tylenol] MEDS 01/08/20 09:48 Discontinued 650 mg PO ONCE STA Diphth,Pertuss(Acell),Tet Vac [Boostrix] MEDS 01/08/20 09:48 Discontinued 0.5 ml IM .ONCE ONE Lisinopril [Zestril] MEDS 01/09/20 09:00 Active 5 mg PO DAILY Memantine HCl [Namenda] MEDS 01/08/20 21:00 Active 10 mg PO BEDTIME Nebivolol HCl [Bystolic] MEDS 01/09/20 09:00 Active 5 mg PO DAILY ANKLE, LEFT MIN 3 VIEWS Stat RADS 01/08/20 09:48 Completed ANKLE, RIGHT MIN 3 VIEWS Stat RADS 01/08/20 09:48 Completed CHEST, 1V AP ONLY Stat RADS 01/08/20 09:[address] CERVICAL SPINE W/O CONTRAST Stat RADS 01/08/20 09:[address] HEAD W/O CONTRAST Stat RADS 01/08/20 09:48 Completed Medications Generic Name Dose Route Start Last Admin Trade Name Freq PRN Reason Stop Dose Admin Acetaminophen 650 mg 01/08/20 11:41 Tylenol PO Q4H PRN Mild Pain Sodium Chloride 1,000 mls @ 75 mls/hr 01/08/20 12:00 Sodium Chloride IV .[id number] PILAR Lisinopril 5 mg 01/09/20 09:00 Zestril PO DAILY PILAR Memantine 10 mg 01/08/20 21:00 Namenda PO BEDTIME PILAR Nebivolol 5 mg 01/09/20 09:00 Bystolic PO DAILY PILAR Discontinued Medications Generic Name Dose Route Start Last Admin Trade Name Tuan PRN Reason Stop Dose Admin Acetaminophen 650 mg 01/08/20 09:48 01/08/20 11:07 Tylenol PO 01/08/20 09:49 650 mg ONCE STA Administration Diphtheria/Pertussis/Tetanus Vacc 0.5 ml 01/08/20 09:48 01/08/20 11:09 Boostrix IM 01/08/20 09:49 0.5 ml .ONCE ONE Administration Vital Signs: Temp Pulse Resp BP Pulse Ox 01/08/20 09:22 99.8 F H 100 H 20 135/78 94 L Discharge Plan Discharge Patient Disposition: PLACED OBSERVATION Discharge Problem: Head injury Qualifiers: Encounter type: initial encounter Qualified Code(s): S09.90XA - Unspecified injury of head, initial encounter ED Provider: KWESI PEREZ Condition: Stable Discharge Date/Time: 01/08/20 12:57
[2020-01-08 10:10] LABS: HEMATOCRIT 28.3 % (37.0-47.0)
--- NOTE | 2020-01-08 10:26 | DI ---
EXAM: Chest one view HISTORY: Fall COMPARISON: 03/31/2018 TECHNIQUE: Single view of the chest was performed FINDINGS: The lungs are clear. There is no pleural effusion or pneumothorax. The heart is normal i n size. The mediastinal contour is normal. There are no acute abnormalities of the bones. IMPRESSION: No acute cardiopulmonary process.
--- NOTE | 2020-01-08 10:30 | DI ---
EXAM: Radiographs, right ankle HISTORY: Right ankle pain. COMPARISON: None available. TECHNIQUE: Three views. FINDINGS: Bones are demineralized. There has been previous tibiotalar arthrodesis with a single scr ew present. Post-traumatic and/or postsurgical defect in the distal fibular metaphysis noted. 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 No acute fracture or d islocation identified. Subtalar joint and hind foot osteoarthritis noted. No erosions are seen. No localized soft tissue abnormality detected. Extensive atherosclerotic calcifications are seen. IMPRESSION: No acute fracture or dislocation.
--- NOTE | 2020-01-08 10:44 | DI ---
EXAM: Three views left ankle HISTORY: Pain COMPARISON: None FINDINGS: No acute fracture or malalignment. Ankle mortise is symmetric. Nonspecific generalized sof t tissue swelling about the ankle. Atherosclerotic calcifications. IMPRESSION: Nonspecific mild soft tissue swelling about the ankle.
--- NOTE | 2020-01-08 11:24 | CT ---
EXAM: CT cervical spine without contrast HISTORY: Fall COMPARISON: None TECHNIQUE: CT cervical spine performed without intravenous contrast. Coronal and sagittal reformatt ed images obtained. FINDINGS: Straightening of the normal cervical lordosis. Vertebral bodies normal height. No fractu re. Multilevel marginal osteophyte formation. Multilevel intervertebral disc space narrowing that i s greatest at C5-C6 and C6-C7 where there is moderate to severe intervertebral space narrowing. Mult ilevel facet and uncovertebral hypertrophy. 2 mm anterolisthesis C3 on C4, 1 mm anterolisthesis C4 a nd C5, 1 mm anterolisthesis C5 on C6, 2 mm anterolisthesis C7 and T1. Degenerative changes cause mil d multilevel central canal narrowing and varying degrees of multilevel bilateral neural foraminal minh rowing ranging from mild to severe and greatest at C5-C6 and C6-C7. Prevertebral soft tissues appear normal. Atherosclerotic calcifications carotid arteries. IMPRESSION: 1. No fracture. 2. Chronic discogenic degenerative disease and facet arthrosis. Multilevel grade 1 anterolisthesis. 3. Straightening of the normal cervical lordosis.
--- NOTE | 2020-01-08 11:27 | CT ---
EXAM: CT Head HISTORY: Injury COMPARISON: 10/26/2011 TECHNIQUE: CT head performed without contrast FINDINGS: There is no mass effect, midline shift, or intracranial hemmorhage. Guardado white differenti ation is preserved. There is no extra-axial collection. The ventricles, sulci, and basal cisterns a re patent and symmetric. 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 Moderate chronic small vessel ischemic changes of the white matter and mild generalized cere bral volume loss. There is no depressed calvarial fracture. The mastoid air cells are clear. The vi sualized paranasal sinuses are clear. There are intracranial atherosclerotic calcifications. IMPRESSION: 1. No acute intracranial abnormality. 2. Small left frontal lobe infarct with encephalomalacia. 3. Chronic small vessel ischemic changes and generalized atrophy.
[2020-01-08] MEDS ORDERED: TYLENOL PO PRN (11:41)
[2020-01-08 13:22] VITALS: BMI 24.7
[2020-01-08] MEDS: SODIUM CHLORIDE 1,000 ML IV SCH (15:13)
[2020-01-08] MEDS ORDERED: ZAROXOLYN PO SCH (15:30)
[2020-01-08] MEDS: NAMENDA PO SCH (20:00)
[2020-01-08] MEDS: TRAVATAN Z EACHEYE SCH (20:00)
[2020-01-08] MEDS: FERROUS SULFATE PO SCH (20:00)
[2020-01-09] MEDS: SODIUM CHLORIDE 1,000 ML IV SCH (03:44)
[2020-01-09 05:21] LABS: HEMATOCRIT 24.4 % (37.0-47.0)
[2020-01-09] MEDS ORDERED: SODIUM CHLORIDE 1,000 ML IV SCH (08:06)
--- NOTE | 2020-01-09 08:06 | PCM.PROG ---
Attending Provider: ATTENDING PROVIDER: Dr. JEN ROLLE This patient is seen with Nat Ivory, Nurse Practitioner. DATE OF SERVICE: 01/09/20 SUBJECTIVE: This 89 year old AA/BLACK F was hospitalized 01/08/20. The patient is resting comfortably in the bed. The patient is alert and oriented. Neuro checks have been stable. She denies having any pain. She reports that she had been eating and drinking well at home. She was brushing her teeth in the bathroom and went to take a step and slipped. She denies any dizziness or any other associated symptoms. REVIEW OF SYSTEMS: CONSTITUTIONAL: No night sweats. No fatigue, malaise, lethargy. No fever or chills. HEENT: Eyes: No visual changes. No eye pain. No eye discharge. ENT: No runny nose. No epistaxis. No sinus pain. No odynophagia. No congestion. RESPIRATORY: No cough, no congestion. No hemoptysis. No shortness of breath. CARDIOVASCULAR: No angina symptoms. No CHF symptoms. No atypical chest pain for CAD. No palpitations. No orthopnea.. GASTROINTESTINAL: No abdominal pain. No nausea or vomiting. No diarrhea or constipation. No hematemesis. No hematochezia. GENITOURINARY: No urgency. No frequency. No dysuria. No hematuria. No obstructive symptoms. No discharge. No pain. No significant abnormal bleeding. MUSCULOSKELETAL: No musculoskeletal pain; no joint swelling. Weakness. NEUROLOGICAL: Awake, alert, oriented to time, place and person. No headache. No neck pain. No syncope. No seizures. No dizziness. PSYCHIATRIC: Not anxious. No depression. No suicidal thoughts. No homicidal thoughts. SKIN: No rash. No lesions. No wounds. ENDOCRINE: No unexplained weight loss. No weight gain. HEMATOLOGIC/LYMPHATIC: No anemia. No purpura. No petechiae. No prolonged or excessive bleeding. No palpable lymph nodes. PHYSICAL EXAMINATION: GENERAL: The patient is awake, alert and oriented, lying in bed in no distress. VITAL SIGNS: Temperature 98.6 F, Pulse 72, Respiratory Rate 16, BP 111/65, Pul se Ox 96% HEENT: Head normocephalic, atraumatic. Eyes: Extraocular muscles are intact. Pupils are equal, round and reactive to light and accommodation. Ears: No lesions. Nose appeared normal. Throat: No exudate or erythema. NECK: Supple. No JVD, no carotid bruit. No lymphadenopathy or thyromegaly. LUNGS: Diminished clear breath sounds. Percussion note normal. Chest symmetrical. HEART: S1, S2, no S3. Murmur systolic grade II/. No cyanosis or clubbing. No ascites. Pulses: Dorsalis pedis and posterior tibial pulses +1 to +2 both sides. ABDOMEN: Soft. Non-tender. Bowel sounds active. No CVA tenderness. No mass felt. EXTREMITIES: No edema. Full range of motion of all extremities, equal. NEUROLOGIC: No focal deficit. Cranial nerves II through XII are grossly intact. No headache, no double vision or headache. SKIN: Not dry. Intact. Turgor-normal. LYMPHATIC: No palpable lymph nodes/no lymphedema. MUSCULOSKELETAL: Normal joints with no swelling. Muscle tone is normal. LAB REVIEW: 01/09/20 05:15 01/09/20 05:15 01/09/20 05:15: Sodium 137.8, Potassium 3.36 L, Chloride 108.8 H, Carbon Dioxide 26.6, Anion Gap 5.76, BUN 23.6 H, Creatinine 1.05, Estimated GFR (MDRD) 60.00, BUN/Creatinine Ratio 22.47, Glucose 107.4 H, Calcium 8.78, Total Bilirubin 0.44, AST 45.4 H, ALT 18.9, Alkaline Phosphatase 60.8, Total Protein 5.66 L, Albumin 3.04 L, Globulin 2.62, Albumin/Globulin Ratio 1.16 01/09/20 05:15: WBC 5.85, RBC 2.57 L, Hgb 8.1 L, Hct 24.4 L, MCV 94.9, MCH 31.5 H, MCHC 33.2, RDW Coeff of Alex 13.3, Plt Count 219, Immature Gran % (Auto) 0.3, Neut % (Auto) 59.9, Lymph % (Auto) 23.6, [place] % (Auto) 13.0 H, Eos % (Auto) 2.9, Baso % (Auto) 0.3, Neut # (Auto) 3.5, Lymph # (Auto) 1.4, [place] # (Auto) 0.8, Eos # (Auto) 0.2, Baso # (Auto) 0.0, Immature Gran # (Auto) 0.0 01/09/20 01:44: Troponin I 0.030 01/08/20 18:03: Urine Color Yellow, Urine Clarity Clear, Urine pH 6.0, Ur Specific [place] 1.020, Urine Protein Negative, Urine Glucose (UA) Negative, Urine Ketones Negative, Urine Blood Trace-intact H, Urine Nitrite Negative, Urine Bilirubin Negative, Urine Urobilinogen 0.2, Ur Leukocyte Esterase 1+ H, Urine Microscopic RBC 2-5, Urine Microscopic WBC 5-10, Ur Squamous Epith Cells 2-5, Urine Mucus Trace 01/08/20 17:45: Troponin I 0.046 01/08/20 10:06: Sodium 140.0, Potassium 3.59, Chloride 108.9 H, Carbon Dioxide 24.5, Anion Gap 10.19, BUN 28.8 H, Creatinine 1.26, Estimated GFR (MDRD) 48.00, BUN/Creatinine Ratio 22.85, Glucose 110.1 H, Calcium 9.96, Total Bilirubin 0.63, AST 38.8 H, ALT 20.3, Alkaline Phosphatase 80.2, Total Protein 7.01, Albumin 4.00, Globulin 3.01, Albumin/Globulin Ratio 1.32 01/08/20 10:05: WBC 10.42 H, RBC 2.97 L, Hgb 9.2 L, Hct 28.3 L, MCV 95.3, MCH 31.0, MCHC 32.5, RDW Coeff of Alex 13.3, Plt Count 258, Immature Gran % (Auto) 0.5, Neut % (Auto) 78.4 H, Lymph % (Auto) 9.8 L, [place] % (Auto) 10.5 H, Eos % (Auto) 0.3, Baso % (Auto) 0.5, Neut # (Auto) 8.2 H, Lymph # (Auto) 1.0, [place] # (Auto) 1.1, Eos # (Auto) 0.0, Baso # (Auto) 0.1, Immature Gran # (Auto) 0.1 01/08/20 10:05: Troponin I 0.053 ASSESSMENT: Please see below. 1. Status post fall 2. Weakness 3. Head injury 4. Hypokalemia 5. History of TIA 6. History of CVA 7. Aortic stenosis 8. Chronic kidney disease. PLAN: 1. Decrease IV fluids to 50cc 2. Potassium 20meq BID today only 3. CBC and CMP in the morning 4. PT for evaluation and treatment 5. Carotid ultrasound today 6. Fall precautions 7. Decrease Neuro checks to every 4 hours. Plan and coordination of the patient's care discussed in the presence of Gym Supervisor and nurse. SCRIBED BY: Delilah HEBERT scribed while in presence of service performed by Dr. Rolle/Nat Ivory APRN on 01/09/20 ([id number])
[2020-01-09] MEDS ORDERED: XARELTO PO SCH ×2 (09:00→17:00)
[2020-01-09] MEDS ORDERED: FATTY ACIDS PO SCH (09:00)
[2020-01-09] MEDS ORDERED: OMEGA PO SCH (09:00)
[2020-01-09] MEDS: BYSTOLIC PO SCH (09:09)
[2020-01-09] MEDS: ZESTRIL PO SCH (09:10)
[2020-01-09] MEDS: FERROUS SULFATE PO SCH ×3 (09:10→20:09)
[2020-01-09] MEDS: VITAMIN D PO SCH (09:10)
[2020-01-09] MEDS: OMEGA-3 FISH OIL PO SCH (09:10)
[2020-01-09] MEDS: K-DUR PO SCH ×2 (09:10→16:44)
--- NOTE | 2020-01-09 11:12 | US ---
EXAM: Ultrasound bilateral carotid duplex HISTORY: Fall with syncopal episode COMPARISON: Carotid Doppler 07/28/2016 and multiple priors TECHNIQUE: Sonographic and color Doppler evaluation of the carotids were performed. FINDINGS: The right carotid is patent in appearance with scattered moderate atherosclerotic plaque visualized. The right ICA peak systolic velocity measures 180 cm/sec which is elevated. The ICA / CCA peak systolic velocity ratio is 2.2 and ICA end-diastolic velocity is 47 cm/sec. The left carotid is 18 in appearance with scattered moderate atherosclerotic plaque visualized. The left ICA peak systolic velocity measures 98 cm/sec which is normal. The left ICA / CCA peak systolic velocity ratio is 0.8 and ICA end-diastolic velocity is 26 cm/sec. Vertebral arteries demonstrate antegrade flow bilaterally. 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 This measures 2.7 x 2.1 x 2.3 cm. This previously measured 2.4 x 1.1 x 1.3 cm. There is an adjacent lymph node measurin g 2.1 x 1.2 x 1.5 cm. IMPRESSION: 1. Right moderate atherosclerotic disease with elevated velocities of the distal ICA suggestive of m oderate, 50 - 69% stenosis. The velocity measures increased when compared to prior exam. 2. Moderate atherosclerotic disease in the left carotid with no elevated velocities. 3. No new left carotid body tumor with measurements as above and probable adjacent lymph node.
--- NOTE | 2020-01-09 12:06 | HP ---
DATE OF SERVICE: 01/08/20 HISTORY OF PRESENT ILLNESS: 89-year-old -[place] female was brought into the ER by her family after sustaining a fall at home. She reports she was in the restroom brushing her teeth. She went to take a step, tripped and fell. She hit her head on the bathtub. The family did not feel that she had lost consciousness. The patient denied any dizziness or loss of consciousness. She does feel like she twisted her ankle with the fall. She is complaining of pain. The patient has a history of TIA and CVA, systolic murmur and hypertension. She will be admitted with routine telemetry for further evaluation and management. 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 No night sweats. No fatigue, malaise, lethargy. No fever or chills. HEENT: Eyes: No visual changes. No eye pain. No eye discharge. ENT: No runny nose. No epistaxis. No sinus pain. No sore throat. No odynophagia. No ear pain. No congestion. RESPIRATORY: No cough, no congestion. No hemoptysis. No shortness of breath. CARDIOVASCULAR: No angina symptoms. No CHF symptoms. No atypical chest pain for CAD. No palpitations. No PND. No orthopnea. GASTROINTESTINAL: No abdominal pain. No nausea or vomiting. No diarrhea or constipation. No hematemesis. No hematochezia. GENITOURINARY: No urgency. No frequency. No dysuria. No hematuria. No obstructive symptoms. No discharge. No pain. No significant abnormal bleeding. MUSCULOSKELETAL: Head and ankle pain. NEUROLOGICAL: No headache. No neck pain. No syncope. No seizures. No dizziness. PSYCHIATRIC: Not anxious. No depression. No suicidal thoughts. No homicidal thoughts. SKIN: No rash. No lesions. No wounds. ENDOCRINE: No unexplained weight loss. No weight gain. HEMATOLOGIC/LYMPHATIC: No anemia. No purpura. No petechiae. No prolonged or excessive bleeding. No palpable lymph nodes. PERSONAL/FAMILY/SOCIAL HISTORY: She is a nonsmoker. She is . I believe she is currently staying with her daughter. She has no alcohol or illegal drug use. MEDICATIONS: (HOME) Lisinopril 5 mg p.o. daily Fish Oil 300 mg p.o. daily Atorvastatin 10 mg p.o. daily Allopurinol 100 mg p.o. b.i.d. Travatan Z one drop both eyes bedtime Ferrous Sulfate 324 mg p.o. t.i.d. Memantine 10 mg p.o. bedtime Cholecalciferol 1,000 unit p.o. daily Nebivolol 5 mg p.o. daily Rivaroxaban 15 mg p.o. daily Metolazone 2.5 mg p.o. TUFR ALLERGIES: NKDA PHYSICAL EXAMINATION: VITAL SIGNS: Temperature 99.8, pulse 100, respirations 20, blood pressure 135/78, pulse ox 94%. HEENT: Head normocephalic, atraumatic. Eyes: Extraocular muscles are intact. Pupils are equal, round and reactive to light and accommodation. Ears: No lesions. Nose appeared normal. Throat: No exudate or erythema. NECK: Supple. No JVD, no carotid bruit. No lymphadenopathy or thyromegaly. LUNGS: Diminished breath sounds. Clear to auscultation. Percussion note normal. Chest symmetrical. HEART: S1, S2, no S3. Systolic murmur Grade II/. No cyanosis or clubbing. No ascites. Pulses: Dorsalis pedis and posterior tibial pulses +1 to +2 bilaterally. ABDOMEN: Soft. Nontender. Bowel sounds active. No CVA tenderness. No mass felt. EXTREMITIES: No edema. Full range of motion of all extremities, equal. NEUROLOGIC: No focal deficit. Cranial nerves II through XII are grossly intact. No headache, no double vision or headache. SKIN: Not dry. Intact. Turgor - normal. LYMPHATIC: No palpable lymph nodes/no lymphedema. MUSCULOSKELETAL: Normal joints with no swelling. Muscle tone is normal. LABS: White blood count 10.42, hemoglobin 9.2, hematocrit 28.3, platelets 258. Sodium 140, potassium 3.59, BUN 28.8, creatinine 1.26, AST 38.8, ALT 20.3. CT of the head showed no acute intracranial abnormality, small left frontal lobe infarct with encephalomalacia, chronic small vessel ischemic changes and generalized atrophy. Left ankle x-ray showed nonspecific mild soft tissue swelling about the ankle. Right ankle x-ray shows no acute fracture or dislocation. Chest x-ray shows no acute cardiopulmonary process. CT of the cervical spine without shows no fracture. Chronic discogenic degenerative disease and facet arthrosis, multilevel Grade I anterolisthesis, straightening of the normal cervical lordosis. ASSESSMENT: 1. STATUS POST FALL 2. WEAKNESS 3. HEAD INJURY 4. HYPOKALEMIA 5. HISTORY OF TIA 6. HISTORY OF CVA 7. AORTIC STENOSIS 8. CHRONIC KIDNEY DISEASE 9. HYPERTENSION 10. SYSTOLIC MURMUR PLAN: 1. Admit 2. Routine telemetry 3. CBC, CMP daily 4. Continue home medications 5. Hold Allopurinol and add Atorvastatin 6. 02 at 1 to 2L nasal cannula as needed 7. Fall precautions 8. NS IV at 75 mL/hr 9. Neuro-Checks every two hours 10. Cardiac diet 11. PT consult for evaluation and treatment The patient was seen and examined with Dr. Rodríguez. Plan was discussed. TIME SPENT: More than 70 minutes. KEENA
--- NOTE | 2020-01-09 12:58 | PN ---
DATE OF SERVICE: 01/09/2020 SUBJECTIVE: The patient has doing well. She was seen and examined with the nurse practitioner. The patient's condition is stable. She is oriented to time, place and person. Neurological status is stable with movement of all her extremities. Pupils are equal and react to light normally. No nausea and no vomiting. Hydration status has improved. The hgb is low because of hydration that was given through IV fluids. Potassium supplements will be given for hypokalemia. CONDITION: Stable. TIME SPENT: More than 30 minutes. Plan and coordination of the patient's care discussed in the presence of nurse. KEENA
--- NOTE | 2020-01-09 13:26 | PN ---
DATE OF SERVICE: 01/08/20 SUBJECTIVE: 89-year-old -Trist[place] female came to the emergency room after she had fallen at 3 o'clock in the morning going to the bathroom. She fell backwards and hit the occipital area. The patient has hematoma of the occipital area. I checked her out in the emergency room. The patient was oriented to time, place and person. Neurological status was normal. PHYSICAL EXAMINATION: GENERAL: The patient is oriented to time, place and person. HEENT: Head normocephalic, atraumatic. Eyes: Extraocular muscles are intact. Pupils are equal, round and reactive to light and accommodation. Ears: No lesions. Nose appeared normal. Throat: No exudate or erythema. NECK: Supple. No JVD, no carotid bruit. No lymphadenopathy or thyromegaly. LUNGS: Clear to auscultation. Percussion note normal. Chest symmetrical. HEART: S1, S2, no S3. No murmurs. No cyanosis or clubbing. No ascites. Pulses: Dorsalis pedis and posterior tibial pulses +1 to +2 bilaterally. ABDOMEN: Soft. Nontender. Bowel sounds active. No CVA tenderness. No mass felt. EXTREMITIES: No edema. Full range of motion of all extremities, equal. NEUROLOGIC: Normal. No focal deficit. Cranial nerves II through XII are grossly intact. No headache, no double vision or headache. SKIN: Not dry. Intact. Turgor - normal. LYMPHATIC: No palpable lymph nodes/no lymphedema. MUSCULOSKELETAL: Normal joints with no swelling. Muscle tone is normal. Telemetry showed sinus rhythm. Oximetry more than 94%. The patient's CT scan was negative for acute bleed. The patient has been falling frequently lately. Condition at the present time is normal. The patient is going to be admitted with continuation of all of her medications. The patient will be monitored. Neurochecks q.2hourly. Telemetry - left carotid scan in the morning. Further testing will be done depending upon her condition tomorrow morning. TIME SPENT: More than 30 minutes. Plan and coordination of the patient's care discussed in the presence of nurse. KEENA
--- NOTE | 2020-01-09 13:38 | RS.PTINEVL ---
Subjective - Patient information Date of Evaluation: 01/09/20 Date of Arrival on Unit: 01/08/20 Admitted From:: Home Diagnosis: fall, head injury, weakness Usual Living Arrangement: With Others Living Arrangement Comments: pt currently living with dtr due to COVID 19. pt normally lives alone. Home Environment: Stairs (few), No rail Medical History: Hypertension, CVA/TIA, Arthritis Medical History Comments:: aortic stenosis, mild mitral stenosis, anemia, LVH, chronic kidney disease LATEX ALLERGY?: No Medications: see chart Subjective Information/ Patient Comments:: pt states that she is feeling much better today. States she uses a rwx at home occasionally but normally uses cane. - Level of function Prior to this admission, the patient could do the following:: Independent Selfcare, Independent ADL's, Independent Ambulation Current Level of Function: Partially Dependent Current Equipment Used at Home: ROLLING WALKER, CANE Interventions - Objective Patient Orientation: Person, Place, Time, Situation Current Interventions: IV's, Telemetry Range of Motion - ROM Right Upper Extremity AROM: WFL's Left Upper Extremity AROM: WFL's Right Lower Extremity AROM: Slight limitation (decreased R ankle DF/PF, IV, EV. pt with h/o injury in ) Left Lower Extremity AROM: WFL's Muscle Strength - Muscle Strength Right Upper Extremity Strength: Mild Weakness (grossly 4/5) Left Upper Extremity Strength: Mild Weakness (grossly 4/5) Right Lower Extremity Strength: Mild Weakness (hip flex 4/5, knee flex/ext 4/5, ankle DF/PF 3-/5) Left Lower Extremity Strength: Mild Weakness (hip flex 4/5, knee flex/ext 4/5, ankle 4/5) Sensation - Sensation Right Upper Extremity Sensation: Intact/Normal Left Upper Extremity Sensation: Intact/Normal Right Lower Extremity Sensation: Intact/Normal Left Lower Extremity Sensation: Intact/Normal Palpation Palpation Findings: Tenderness (R ankle) Balance - Sitting Balance and Reactions Static Sitting Balance: Good Dynamic Sitting Balance: Good - Standing Balance and Reactions Static Standing Balance: Fair Dynamic Standing Balance: Fair Standing Equilibrium Reactions: Delayed Left, Delayed Right Standing Protective Reactions: Delayed Left, Delayed Right Functional Mobility - Transfers Sit to Stand: CGA Stand to Sit: CGA - Safety Awareness Safety Awareness: Fair BRENDON INDEX SCORE: n/a Ambulation - Ambulation Assistive Device Used: Rolling Walker Orthotic/Prosthetic Device: No Distance: 100ft Assistance needed with Ambulation: CGA Gait Deviations: Forward posture, Short stride Factors Affecting Ambulation: Decreased Balance, Weakness, Decreased Safety, Limited Endurance Treatment time - Time with patient Length of Evaluation: 21 Total treatment time: 26 Patient Education - Education Patient Education: Activity Modification, Education of Plan of Care Teaching Recipient: Patient Teaching Methods: Discussion, Demonstration Comments: discussion regarding POC as well as demonstration of safety with rwx. Assessment - Assessment Problem List:: Decreased level of function, Requires training/education, Decreased safety/Risk of falls, Weakness, Pain limits previous level of function Rehab Potential: Good Further Therapy Indicated?: Yes Candidate for Swing Bed for Therapy Services?: Do not feel pt will be a candidate for swing bed due to higher functional level. 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 R 26.2 difficulty walking. z91.81 falls Has the Physician been added for Co-signature?: Yes
[2020-01-09] MEDS: NAMENDA PO SCH (20:09)
[2020-01-09] MEDS: TRAVATAN Z EACHEYE SCH (20:09)
[2020-01-10 05:07] LABS: HEMATOCRIT 25.9 % (37.0-47.0)
[2020-01-10 06:08] VITALS: BP 113/71; TEMP 98.3
[2020-01-10] MEDS ORDERED: ZAROXOLYN PO SCH (06:30)
--- NOTE | 2020-01-10 08:39 | PCM.PROG ---
Attending Provider: ATTENDING PROVIDER: Dr. JEN RODRÍGUEZ This patient is seen with Nat Ivory, Nurse Practitioner. DATE OF SERVICE: 01/10/20 SUBJECTIVE: This 89 year old AA/BLACK F was hospitalized 01/08/20. The patient is sitting in chair resting comfortably. She reports she is feeling much better. She has been up and about working with PT. She still reports some weakness in the right ankle and wound benefit greatly from continued home physical therapy. She resides with her daughter. She is to have a 2D echo today. Discharge is pending. REVIEW OF SYSTEMS: CONSTITUTIONAL: Weakness. No night sweats. No fatigue, malaise, lethargy. No fever or chills. HEENT: Eyes: No visual changes. No eye pain. No eye discharge. ENT: No runny nose. No epistaxis. No sinus pain. No odynophagia. No congestion. RESPIRATORY: No cough, no congestion. No hemoptysis. No shortness of breath. CARDIOVASCULAR: No angina symptoms. No CHF symptoms. No atypical chest pain for CAD. No palpitations. No orthopnea.. GASTROINTESTINAL: No abdominal pain. No nausea or vomiting. No diarrhea or con stipation. No hematemesis. No hematochezia. GENITOURINARY: No urgency. No frequency. No dysuria. No hematuria. No obstructive symptoms. No discharge. No pain. No significant abnormal bleeding. MUSCULOSKELETAL: Right ankle pain. NEUROLOGICAL: Awake, alert, oriented to time, place and person. No headache. No neck pain. No syncope. No seizures. No dizziness. PSYCHIATRIC: Not anxious. No depression. No suicidal thoughts. No homicidal thoughts. SKIN: No rash. No lesions. No wounds. ENDOCRINE: No unexplained weight loss. No weight gain. HEMATOLOGIC/LYMPHATIC: No anemia. No purpura. No petechiae. No prolonged or excessive bleeding. No palpable lymph nodes. PHYSICAL EXAMINATION: GENERAL: The patient is awake, alert and oriented, sitting in chair in no distress. VITAL SIGNS: Temperature 98.3 F, Pulse 68, Respiratory Rate 18, BP 113/71, Pulse Ox 96% HEENT: Head normocephalic, atraumatic. Eyes: Extraocular muscles are intact. Pupils are equal, round and reactive to light and accommodation. Ears: No lesions. Nose appeared normal. Throat: No exudate or erythema. NECK: Supple. No JVD, no carotid bruit. No lymphadenopathy or thyromegaly. LUNGS: Diminished breath sounds. Clear to auscultation. Percussion note normal. Chest symmetrical. HEART: S1, S2, no S3. Grade II/ murmur. No cyanosis or clubbing. No ascites. Pulses: Dorsalis pedis and posterior tibial pulses +1 to +2 both sides. ABDOMEN: Soft. Non-tender. Bowel sounds active. No CVA tenderness. No mass felt. EXTREMITIES: No edema. Full range of motion of all extremities, equal. NEUROLOGIC: No focal deficit. Cranial nerves II through XII are grossly intact. No headache, no double vision or headache. SKIN: Not dry. Intact. Turgor-normal. LYMPHATIC: No palpable lymph nodes/no lymphedema. MUSCULOSKELETAL: Normal joints with no swelling. Muscle tone is normal. LAB REVIEW: 01/10/20 05:00 01/10/20 05:00 01/10/20 05:00: Sodium 137.6, Potassium 3.73, Chloride 109.8 H, Carbon Dioxide 24.4, Anion Gap 7.13, BUN 20.1 H, Creatinine 1.09, Estimated GFR (MDRD) 57.00, BUN/Creatinine Ratio 18.44, Glucose 107.4 H, Calcium 8.87, Total Bilirubin 0.35, AST 36.3 H, ALT 19.1, Alkaline Phosphatase 58.3, Total Protein 5.79 L, Albumin 3.13 L, Globulin 2.66, Albumin/Globulin Ratio 1.17 01/10/20 05:00: WBC 6.18, RBC 2.69 L, Hgb 8.6 L, Hct 25.9 L, MCV 96.3, MCH 32.0 H, MCHC 33.2, RDW Coeff of Alex 13.3, Plt Count 215, Immature Gran % (Auto) 0.3, Neut % (Auto) 54.0, Lymph % (Auto) 28.6, [place] % (Auto) 13.3 H, Eos % (Auto) 3.2, Baso % (Auto) 0.6, Neut # (Auto) 3.3, Lymph # (Auto) 1.8, [place] # (Auto) 0.8, Eos # (Auto) 0.2, Baso # (Auto) 0.0, Immature Gran # (Auto) 0.0 ASSESSMENT: Please see below. 1. Status post fall 2. Weakness 3. Head injury 4. Hypokalemia, resolved. 5. History of TIA 6. History of CVA 7. Aortic stenosis 8. Chronic kidney disease. PLAN: 1. The patient is to have echocardiogram today. 2. Anticipate discharge home today. 3. The patient is to have evaluation for home PT. 4. Encourage the patient to be up and about. 5. Encourage good oral fluid intake as well as good nutrition. Plan and coordination of the patient's care discussed in the presence of Case Drake lentz and nurse. CONDITION: Stable SCRIBED BY: TANESHA PACKER Chemical Processing Laborer scribed while in presence of service performed by Dr. Rodríguez/Nat Ivory APRN on 01/10/20 ([id number])
[2020-01-10] MEDS: BYSTOLIC PO SCH (09:30)
[2020-01-10] MEDS: ZESTRIL PO SCH (09:30)
[2020-01-10] MEDS: FERROUS SULFATE PO SCH (09:30)
[2020-01-10] MEDS: VITAMIN D PO SCH (09:30)
[2020-01-10] MEDS: OMEGA-3 FISH OIL PO SCH (09:31)
--- NOTE | 2020-01-10 10:26 | CM.DICTOOL ---
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 CAVITY CHRONIC KIDNEY DISEASE ARTHRITIS ANEMIA GERD SIGMOID DIVERTICULITIS, POSSIBLE ABSCESS 4.0 MESENTERIC MASS- CT 05/29/2019 LAST VITALS Temp Pulse Resp BP Pulse Ox 98.3 F 68 18 113/71 96 01/10/20 06:00 01/10/20 06:00 01/10/20 06:00 01/10/20 06:00 01/10/20 06:00 TAKE THESE MEDICATIONS AT HOME Cholecalciferol (Vitamin D) 1,000 unit PO DAILY [facility] Last Admin: 01/09/20 09:10 Dose: 1,000 unit Documented by: Ferrous Sulfate (Ferrous Sulfate) 324 mg PO TID [facility] Last Admin: 01/09/20 20:09 Dose: 324 mg Documented by: Fish Oil ([place]-3 Fish Oil) 1,000 mg PO DAILY [facility] Last Admin: 01/09/20 09:10 Dose: 1,000 mg Documented by: Lisinopril (Zestril) 5 mg PO DAILY [facility] Last Admin: 01/09/20 09:10 Dose: 5 mg Documented by: Memantine (Namenda) 10 mg PO BEDTIME [facility] Last Admin: 01/09/20 20:09 Dose: 10 mg Documented by: Metolazone (Zaroxolyn) 2.5 mg PO TuFr@0630 [facility] Last Admin: 01/10/20 06:05 Dose: 2.5 mg Documented by: Nebivolol (Bystolic) 5 mg PO DAILY [facility] Last Admin: 01/09/20 09:09 Dose: 5 mg Documented by: Rivaroxaban (Xarelto) 15 mg PO 1700 [facility] Last Admin: 01/09/20 16:44 Dose: 15 mg Documented by: Travoprost (Travatan Z) 1 drop EACHEYE BEDTIME [facility] Last Admin: 01/09/20 20:09 Dose: 1 drop Documented by: POTASSIUM 10 MEQ PO DAILY -- ( HOME MED) ALLOPURINOL 100 MG PO DAILY -- ( CHANGED HOME MED) PEPCID 20 MG PO BID -- ( NEW) ALLERGIES No Known Allergies Allergy (Verified 01/08/20 09:35) DISCONTINUED MEDICATIONS ATORVASTATIN NEW PRESCRIPTIONS: PEPCID 20 MG PO BID SMOKING: NON- APPLICABLE DISEASE SPECIFIC EDUCATION: WALKER USE DJD ARTHRITIS CARDIAC DIET ADEQUATE FLUIDS COVID 19 LAB REVIEW: 01/10/20 05:00 01/10/20 05:00 01/10/20 05:00: Sodium 137.6, Potassium 3.73, Chloride 109.8 H, Carbon Dioxide 24.4, Anion Gap 7.13, BUN 20.1 H, Creatinine 1.09, Estimated GFR (MDRD) 57.00, BUN/Creatinine Ratio 18.44, Glucose 107.4 H, Calcium 8.87, Total Bilirubin 0.35, AST 36.3 H, ALT 19.1, Alkaline Phosphatase 58.3, Total Protein 5.79 L, Albumin 3.13 L, Globulin 2.66, Albumin/Globulin Ratio 1.17 01/10/20 05:00: WBC 6.18, RBC 2.69 L, Hgb 8.6 L, Hct 25.9 L, MCV 96.3, MCH 32.0 H, MCHC 33.2, RDW Coeff of Alex 13.3, Plt Count 215, Immature Gran % (Auto) 0.3, Neut % (Auto) 54.0, Lymph % (Auto) 28.6, [place] % (Auto) 13.3 H, Eos % (Auto) 3.2, Baso % (Auto) 0.6, Neut # (Auto) 3.3, Lymph # (Auto) 1.8, [place] # (Auto) 0.8, Eos # (Auto) 0.2, Baso # (Auto) 0.0, Immature Gran # (Auto) 0.0 PLAN: DISCHARGE TODAY TO HOME WITH DTR AND HOME HEALTH PT, December ACTIVITY: UP WITH WALKER, CHANGE POSITIONS SLOWLY REMOVE THROW RUGS AND OBSTACLES IN WALKWAYS FOLLOW HOMEHEALTH THERAPY GUIDELINES DIET: CARDIAC. DRINK A GLASS OF WATER WITH EACH MEAL AND WITH MEDICATIONS. MAKE SURE TO DRINK AN ADEQUATE AMOUNT OF FLUIDS DAILY FOLLOW UP: SEE DR. ROLLE/ANNA MONK APRN IN THE OFFICE ON TUESDAY, JANUARY 14, 2020 @ 0900 CALL MD ( DR. ROLLE [phone] ) OR PRESENT TO A LOCAL EMERGENCY ROOM IF ANY HEALTH CONCERNS HOME HEALTH: [facility] WILL CONTACT YOU AND FOLLOW UP WITH PHYSICAL THERAPY EVALUATION IN THE HOME. [phone] CODE STATUS: FULL CODE MRS. LONDONO REMAINS ALERT AND ORIENTED X4. DOES HAVE SOME FORGETFULNESS AND AT TIMES CONFUSED TO CERTAIN DETAILS, ACCORDING TO HER DTR, [place]. SKIN WARM AND DRY AND INTACT. HAS A DRY CRUSTED AREA TO HER POSTERIOR BASE OF HER HEAD, 0.3 X 0.3 CM, NO REDNESS OR DRAINAGE, AREA IS APPROPRIATE AFTER FALL AND TRAUMA. SHE REPORTS MINIMAL TENDERNESS TO AREA. WEAKNESS TO RT ANKLE AND AT TIMES TO LT WRIST. UP WITH WALKER WITH SBA AND AT TIMES REQUIRES CUES, ESPECIALLY ON SAFETY ASPECTS. NUTRITIONAL INTAKE 75 - 100%, HOWEVER HAS BEEN DRINKING UNDER 1000ML DAILY. CONTINENT OF BOWEL WITH INTERMITTENT BLADDER LEAKAGE. MRS. LONDONO WEARS A DEPENDS. LAST BM 01/08. LIVES WITH DTR SINCE COVID 19 GUIDELINES WERE INITIATED. [facility]IS[facility] HOME HEALTH TO FOLLOW UP WITH THERAPY. MD ANNA MIDDLETON APRN
--- NOTE | 2020-01-13 10:46 | ECHO2D ---
Date of Exam: 01/10/2020 Ordering Physician: DR. JEN ROLLE Room #: 112 Reason for Echo: SYSTOLIC MURMUR, HTN, WEAKNESS M-Mode Normal Adult Results LV Dimensions Normal Adult Results AoV Opening excursions >1.6 1.3 LVEDD-base- 3.5-5.8 4.2 Ao root dimensions 2.0-3.7 3.0 LVESD-base- 3.1-4.6 L. Atrium dimensions 1.9-3.8 4.9 Post. Wall thickness 0.8-1.1 1.1 IV septum (thickness) 0.7-1.2 1.2 Post. Wall excursion 0.72-1.3 NORMAL Septal motion NORMAL Systolic motion R. Ventricular cavity 1.5-2.0 NORMAL LVEF 60% 68% Paradoxical septal wall motion NORMAL 2-D : ENLARGED LEFT ATRIAL CAVITY--CALCIFIC AORTIC VALVES--MILD AORTIC STENOSIS, CALCIFIC MITRAL VALVE ANNULUS, NORMAL LEFT VENTRICLE CONTRACTILITY--NO EFFUSION, NO THROMBUS M-MODE: MV: CALCIFIC MITRAL VALVE ANNULUS AV: CALCIFIC AORTIC VALVE WITH MILD TO MODERATE STENOSIS TV: NORMAL PV: NORMAL CHAMBER SIZE: ENLARGED LEFT ATRIAL CAVITY WALL MOTION: NORMAL PERICARDIUM: NORMAL INTERPRETATION: 1. LEFT VENTRICULAR HYPERTROPHY WITH ENLARGED LEFT ATRIAL CAVITY 2. CALCIFIC MITRAL VALVE ANNULUS--MAYBE MILD MITRAL STENOSIS 3. CALCIFIC AORTIC STENOSIS-MODERATE 4. LEFT VENTRICULAR HYPERTROPHY MTDD
--- NOTE | 2020-01-15 10:01 | DS ---
DATE OF SERVICE: 01/10/20 FINAL DIAGNOSIS: 1. STATUS POST FALL 2. WEAKNESS 3. HEAD INJURY 4. HYPOKALEMIA- RESOLVED 5. SYSTOLIC MURMUR 6. HX: HTN 7. DYSLIPIDEMIA 8. TIA 9. CVA 10. CALCIFIC AORTIC STENOSIS 11. MILD MITRAL STENOSIS 12. LVH WITH ENLARGED LEFT ATRIAL CAVITY 13. CHRONIC KIDNEY DISEASE 14. ARTHRITIS 15. ANEMIA 16. GERD 17. SIGMOID DIVERTICULITIS, POSSIBLE ABSCESS 18. 4.0 MESENTERIC MASS- CT 05/29/2019 LAST VITALS Temp Pulse Resp BP Pulse Ox 98.3 F 68 18 113/71 96 01/10/20 06:00 01/10/20 06:00 01/10/20 06:00 01/10/20 06:00 01/10/20 06:00 DISCHARGE INSTRUCTIONS: 1. DISCHARGE TODAY TO HOME WITH DTR AND HOME HEALTH PT, December 2. MD FOLLOW UP: SEE DR. ROLLE/ANNA MONK APRN IN THE OFFICE ON TUESDAY, JANUARY 14, 2020 @ 0900. CALL MD ( DR. ROLLE [phone] ) OR PRESENT TO A LOCAL EMERGENCY ROOM IF ANY HEALTH CONCERNS. 3. HOME HEALTH: [facility] WILL CONTACT YOU AND FOLLOW UP WITH PHYSICAL THERAPY EVALUATION IN THE HOME. [phone] 4. CODE STATUS: FULL CODE MEDICATIONS AT DISCHARGE: Cholecalciferol (Vitamin D) 1,000 unit PO DAILY [facility] Last Admin: 01/09/20 09:10 Dose: 1,000 unit Documented by: Ferrous Sulfate (Ferrous Sulfate) 324 mg PO TID [facility] Last Admin: 01/09/20 20:09 Dose: 324 mg Documented by: Fish Oil ([place]-3 Fish Oil) 1,000 mg PO DAILY [facility] Last Admin: 01/09/20 09:10 Dose: 1,000 mg Documented by: Lisinopril (Zestril) 5 mg PO DAILY [facility] Last Admin: 01/09/20 09:10 Dose: 5 mg Documented by: Memantine (Namenda) 10 mg PO BEDTIME [facility] Last Admin: 01/09/20 20:09 Dose: 10 mg Documented by: Metolazone (Zaroxolyn) 2.5 mg PO TuFr@0630 [facility] Last Admin: 01/10/20 06:05 Dose: 2.5 mg Documented by: Nebivolol (Bystolic) 5 mg PO DAILY [facility] Last Admin: 01/09/20 09:09 Dose: 5 mg Documented by: Rivaroxaban (Xarelto) 15 mg PO 1700 [facility] Last Admin: 01/09/20 16:44 Dose: 15 mg Documented by: Travoprost (Travatan Z) 1 drop EACHEYE BEDTIME [facility] Last Admin: 01/09/20 20:09 Dose: 1 drop Documented by: POTASSIUM 10 MEQ PO DAILY -- ( HOME MED) ALLOPURINOL 100 MG PO DAILY -- ( CHANGED HOME MED) PEPCID 20 MG PO BID -- ( NEW) NEW PRESCRIPTIONS: PEPCID 20 MG PO BID DISCONTINUED MEDICATIONS: ATORVASTATIN DIET INSTRUCTIONS: CARDIAC. DRINK A GLASS OF WATER WITH EACH MEAL AND WITH MEDICATIONS. MAKE SURE TO DRINK AN ADEQUATE AMOUNT OF FLUIDS DAILY ACTIVITY: UP WITH WALKER, CHANGE POSITIONS SLOWLY. REMOVE THROW RUGS AND OBSTACLES IN WALKWAYS FOLLOW HOMEHEALTH THERAPY GUIDELINES SMOKING: NON- APPLICABLE DISEASE SPECIFIC EDUCATION: WALKER USE DJD ARTHRITIS CARDIAC DIET ADEQUATE FLUIDS COVID 19 LAB REVIEW: 01/10/20 05:00: Sodium 137.6, Potassium 3.73, Chloride 109.8 H, Carbon Dioxide 24.4, Anion Gap 7.13, BUN 20.1 H, Creatinine 1.09, Estimated GFR (MDRD) 57.00, BUN/Creatinine Ratio 18.44, Glucose 107.4 H, Calcium 8.87, Total Bilirubin 0.35, AST 36.3 H, ALT 19.1, Alkaline Phosphatase 58.3, Total Protein 5.79 L, Albumin 3.13 L, Globulin 2.66, Albumin/Globulin Ratio 1.17 01/10/20 05:00: WBC 6.18, RBC 2.69 L, Hgb 8.6 L, Hct 25.9 L, MCV 96.3, MCH 32.0 H, MCHC 33.2, RDW Coeff of Alex 13.3, Plt Count 215, Immature Gran % (Auto) 0.3, Neut % (Auto) 54.0, Lymph % (Auto) 28.6, [place] % (Auto) 13.3 H, Eos % (Auto) 3.2, Baso % (Auto) 0.6, Neut # (Auto) 3.3, Lymph # (Auto) 1.8, [place] # (Auto) 0.8, Eos # (Auto) 0.2, Baso # (Auto) 0.0, Immature Gran # (Auto) 0.0 HOSPITAL COURSE: The patient was hospitalized with a fall that happened early in the morning. She fell backwards, had occipital area hematoma. The patient's CT scan was negative for any intracranial problems. The patient's stay during the hospital, neurological status was normal. She was moving all of her extremities, had no problem with vision. Appetite was normal. The patient has mild to moderate aortic stenosis and mild mitral stenosis. Echocardiogram stayed unchanged. She doesn't want anything to be done further in the way of evaluation by press hand supervisor. 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 She has normal bowel movements. Appetite has been good. She was advised to drink a lot of fluids, advised to eat three meals. With Covid-19 she has been going back and forth with her daughter in her own apartment and that has changed her normal routine. In any case, the patient is going to be seen as an outpatient. During the stay in the hospital the patient's condition remained stable. Neurological status stable. She refused repeat MRI. Condition at time of discharge stable. TIME SPENT: More than 60 minutes. KEENA
--- NOTE | 2020-01-15 10:12 | PN ---
BILLING 01/08/20 ADMISSION DAY LEVEL 5 01/09/20 INTERMEDIATE 01/10/20 INTERMEDIATE 01/11/20 DISCHARGE MTDD
--- NOTE | 2020-01-15 10:35 | PN ---
DATE OF SERVICE: 01/10/20 - DISCHARGE NOTE SUBJECTIVE: The patient was seen and examined with the nurse practitioner. The patient's condition is stable. Her neurological status is stable. Hematoma seems to be resolving. Pupils are equal and reactive to light normally. Deep tendon reflexes are normal. Moving all extremities. Appetite has improved. She refuses to have anything done about her mild to moderate aortic stenosis and mitral stenosis. I agree with her decision. Cardiovascular status is stable. She wants to go home. The problem is Covid-19 which has made her daily routine disrupted. CONDITION: Stable. TIME SPENT: More than 30 minutes. Plan and coordination of the patient's care discussed in the presence of nurse. KEENA
== END 2020-01-10 11:15 | disposition home or self-care (01) | DRG 556 ==
LOC: ED 09:21 → MEDSURG B 09:21
PROVIDERS: ADMIT Internal Medicine; ATTEND Internal Medicine